=== PATIENT | male | born 1955 | race Hispanic/Latino ===

== ENCOUNTER 2017-04-22 19:48 | Emergency (ER) | payer SELFPAY ==
[2017-04-22 20:27] LABS: Basophils % (Auto) 0.8 % (0.0-1.8); Eosinophils % (Auto) 1.1 % (0.0-4.3); Hematocrit 42.6 % (35.5-45.6); Hemoglobin 14.9 gm/dl (11.8-15.2); Mean Corpuscular HGB Conc 35 % (32-34); Mean Corpuscular Hemoglobin 31 pg (28-32); Mean Corpuscular Volume 89 fl (84-94); Platelet Count 238 K/mm3 (140-440); Red Blood Count 4.77 M/mm3 (3.65-5.03); Red Cell Distribution Width 14.3 % (13.2-15.2); White Blood Count 7.4 K/mm3 (4.5-11.0)
[2017-04-22 21:02] LABS: Anion Gap 20 mmol/L; BUN/Creatinine Ratio 12.22; Blood Urea Nitrogen 11 mg/dL (9-20); Calcium 8.5 mg/dL (8.4-10.2); Carbon Dioxide 22 mmol/L (22-30); Chloride 101.7 mmol/L (98-107); Glucose 99 mg/dL (75-100); Potassium 3.8 mmol/L (3.6-5.0); Sodium 140 mmol/L (137-145)
--- NOTE | 2017-04-22 22:21 | Emergency Department Report ---
HPI - General Chief Complaint: Psych Time Seen by Provider: 04/22/17 20:03 - HPI HPI: The patient is a 61-year-old male who presents for evaluation of mental health. The patient reports constant and severe sadness and depression for the past one day, exacerbated with alcohol use. The patient reports associated suicidal ideations. He shares that he recently lost his brother causing him to be depressed. The patient denies fever, headache, unexplained weight loss or weight gain, heat or cold intolerance, skin, hair, or nail changes, neuro deficits, homicidal ideations. ED Past Medical Hx - Past Medical History Previous Medical History?: Yes Hx Hypertension: No Hx CVA: No Hx Heart Attack/AMI: No Hx Congestive Heart Failure: No Hx Diabetes: No Hx Deep Vein Thrombosis: No Hx Pulmonary Embolism: No Hx GERD: No Hx Liver Disease: No Hx Renal Disease: No Hx Sickle Cell Disease: No Hx Arthritis: No Hx Headaches / Migraines: No Hx Seizures: Yes Hx Kidney Stones: No Hx Psychiatric Treatment: Yes (states "I can't remember" to most questions) Hx Asthma: Yes Hx COPD: Yes Hx Tuberculosis: No Hx Dementia: No Hx HIV: No Additional medical history: Hep B, Bronchitis and chronic back pain - Surgical History Past Surgical History?: No Hx Coronary Stent: No Hx Open Heart Surgery: No Hx Pacemaker: No Hx Internal Defibrillator: No Hx Cholecystectomy: No Hx Appendectomy: No Hx Breast Surgery: No - Social History Smoking Status: Current Every Day Smoker - Medications Home Medications: Home Medications Medication Instructions Recorded Confirmed Last Taken Type PHENobarbital 30 mg PO Q8H 06/30/14 04/14/16 Unknown History Phenytoin [Dilantin] 100 mg PO TID 06/30/14 04/14/16 Unknown History HYDROcodone/APAP 5-325 [[place] 1 each PO Q6HR PRN #20 tablet 10/23/14 04/14/16 Unknown Rx 5-325 mg TAB] Acetaminophen/Codeine [Tylenol #3] 1 tab PO Q8H PRN #12 tablet 05/15/15 Unknown Rx Ibuprofen [Motrin 800 MG tab] 800 mg PO Q8HR PRN #21 tablet 05/15/15 04/14/16 Unknown Rx ED Review of Systems ROS: Stated complaint: MH EVAL/SUICIDAL THOUGHTS/ETOH Other details as noted in HPI Constitutional: denies: fever ENT: denies: throat or neck pain Respiratory: denies: cough, shortness of breath Cardiovascular: denies: chest pain Endocrine: denies unexplained weight loss or gain Gastrointestinal: denies: abdominal pain, nausea Genitourinary: denies: dysuria Musculoskeletal: denies: leg swelling Skin: denies: rash Neurological: denies: headache Hematological/Lymphatic: denies: easy bleeding or easy bruising Psych: reports sadness and hopelessness Physical Exam - Physical Exam Vital Signs: Vital Signs 04/22/17 20:00 Temperature 98.2 F Pulse Rate 80 Respiratory 18 Rate Blood Pressure 126/85 O2 Sat by Pulse 100 Oximetry Physical Exam: General: well-nourished, well-developed, no acute distress Head: Normocephalic, atraumatic Eyes: normal sclera ENT: Mucous membranes are pale and dry Neck: trachea midline, neck supple, No neck stiffness, no cervical adenopathy Respiratory: Breath sounds equal bilaterally, no wheezing, rales, or rhonchi Cardio: S1 and S2 present, no murmurs, rubs, gallops, capillary refill is delayed Abdomen: Normoactive bowel sounds, soft abdomen, no rigidity, no guarding or rebound tenderness Chest WALL/Back: No tenderness to palpation of the chest wall, no CVA tenderness with percussion Musc: No pitting edema Skin: No rash Neuro: no facial drooping, normal speech Psych: Flat affect, poor insight, depressed mood, positive suicidal ideation ED Course Vital Signs 04/22/17 20:00 Temperature 98.2 F Pulse Rate 80 Respiratory 18 Rate Blood Pressure 126/85 O2 Sat by Pulse 100 Oximetry ED Medical Decision Making - Lab Data Result diagrams: 04/22/17 20:18 04/22/17 20:18 - Medical Decision Making The patient was seen and examined by myself. The patient is placed on a groundwater monitoring technician and continuous pulse ox. On initial evaluation, the patient was found to be in no distress. Labs are obtained. Lab results revealed elevated EtOH level of 0.35, and positive cocaine screen, and otherwise labs are grossly unremarkable. The patient given a banana bag infusion for treatment of dehydration. The patient is medically clear. Mental health is consulted. Mental health evaluates the patient and agrees that the patient is at risk of harm to self. A 1013 is completed. The patient will be admitted to a psychiatric facility once bed placement is obtained. Critical care attestation.: If time is entered above; I have spent that time in minutes in the direct care of this critically ill patient, excluding procedure time. ED Disposition Clinical Impression: Alcohol intoxication delirium, Dehydration, Suicidal ideation Depressed Qualifiers: Depression Type: major depressive disorder Major depression recurrence: single episode Active/Remission status: currently active Major depression episode severity: severe Psychotic features: without psychotic features Qualified Code(s ): F32.2 - Major depressive disorder, single episode, severe without psychotic features Disposition: DC/TX-65 PSY HOSP/PSY UNIT Is pt being admited?: No Does the pt Need Aspirin: No Condition: Stable Referrals: PRIMARY CARE, [Primary Care Provider] - 3-5 Days Time of Disposition: 22:20
[2017-04-22 22:58] LABS: Urine Drugs of Abuse Note Disclamer
[2017-04-22 23:04] LABS: Bilirubin,Urine NEG (Negative); Blood,Urine NEG (Negative); Ketones,Urine NEG (Negative); Leukocyte Esterase,Urine NEG (Negative); Nitrite,Urine NEG (Negative); Protein,Urine <15 mg/dL mg/dL (Negative); RBC,Urine < 1.0 /HPF (0.0-6.0); Urobilinogen,Urine < 2.0 mg/dL (<2.0)
[2017-04-23] MEDS ORDERED: VITAMIN B-1 100 MG, FOLVITE 1 MG, INFUVITE 10 ML in NACL 0.9% 1000 ML 1,000 ML IV ONE (02:36)
[2017-04-23] MEDS ORDERED: HABITROL TD ONE (14:37)
--- NOTE | 2017-04-23 19:27 | Consultation ---
History of Present Illness - Reason for Consult Consult date: 04/23/17 Reason for consult: Mental Health Evaluation Requesting physician: RIK GA - Chief Complaint Chief complaint: "My brother recently" - History of Present Psychiatric Illness The patient is a 61-year-old male who presents for evaluation of mental health. Today patient is calm and cooperative during the assessment. He stated being sad since the of his brother a couple days ago. He stated that he started drinking (etoh) because he became depressed over the of his brother. He stated being sober for a couple months prior to this recent relapse. He stated that he wanted to "" once he heard the news of his brother. He stated that he would only drink every other day (beer or hard liquor) prior to him being sober for months. He is adamant that he isn't suicidal today and denies HI's and AVH's. He stated struggling with depression in the past. He rate his depression 6/10, with 10 being the worse. He stated that he once took Zoloft that worked for him. He denies recreational drug use, but is positive for cocaine. He stated, "I don't do cocaine." Patient stated that he maybe evicted from his hotel. Medications and Allergies Allergies Allergy/AdvReac Type Severity Reaction Status Date / Time Penicillins Allergy Unknown Verified 06/29/14 21:27 Home Medications Medication Instructions Recorded Confirmed Last Taken Type PHENobarbital 30 mg PO Q8H 06/30/14 04/14/16 Unknown History Phenytoin [Dilantin] 100 mg PO TID 06/30/14 04/14/16 Unknown History HYDROcodone/APAP 5-325 [[place] 1 each PO Q6HR PRN #20 tablet 10/23/14 04/14/16 Unknown Rx 5-325 mg TAB] Acetaminophen/Codeine [Tylenol #3] 1 tab PO Q8H PRN #12 tablet 05/15/15 Unknown Rx Ibuprofen [Motrin 800 MG tab] 800 mg PO Q8HR PRN #21 tablet 05/15/15 04/14/16 Unknown Rx Past psychiatric history - Past Medical History Past Medical History: COPD, other (Asthma) Past Surgical History: No surgical history - past Psychiatric treatment and history Psych: Depression psychiatric treatment history: Saw a Psychiatrist a couple years ago for depression. Hx of depression. Denies a fam psy hx. - Social History Social history: other (Homeless) Mental Status Exam - Vital signs Last Vital Signs Temp 98.1 F 04/23/17 08:44 Pulse 83 04/23/17 08:44 Resp 18 04/23/17 08:44 BP 129/92 04/23/17 08:44 Pulse Ox 100 04/23/17 08:44 - Exam Narrative exam: ROS: (+) depression MSE: Appearance: calm, cooperative Behavior: regular eye contact Speech: regular rate and tone Mood: "not to bad" sad Affect: labile Thought Process: circumstantial Thought Content: denies SI/HI's and AVH's Motor Activity: ambulatory Cognition: A/Ox 3 Insight: limited Judgment: limited Results Result Diagrams: 04/22/17 20:18 04/22/17 20:18 Abnormal lab results 04/22/17 04/22/17 Range/Units 20:18 20:18 MCHC 35 H (32-34) % Lymph % (Auto) 40.6 H (13.4-35.0) % [place] % (Auto) 8.1 H (0.0-7.3) % Plasma/Serum Alcohol 0.35 H (0-0.07) gm% All other labs normal. Assessment and Plan Assessment and plan: Impression: Historical Dx: Depression. MDD Severe Type. Alcohol Use DO. Substance Use DO (Cocaine). Today patient is calm and cooperative during the assessment. No acute alcohol withdrawals noted. Positive for cocaine. Alcohol serum 0.35. DDx: R/O Bipolar, Possible Alcohol Induced Mood DO, Possible Substance Induced Mood DO Recommendation/Plan: Evaluate 1013 in 24 hours to determine proper dispo. Start Zoloft 50 mg PO daily for depression and Ativan 1 mg PO Q6hrs for withdrawals. Once discharged recommend rehab/psy services. Discussed possible suicidality/ medication induced adithya reference Zoloft with patient. Discussed generalized coping skills with patient. Pulmonary Specialist involvement, patient may need placement.
[2017-04-23] MEDS ORDERED: ATIVAN PO PRN (19:52)
[2017-04-23] MEDS ORDERED: ZOLOFT PO SCH (20:00)
[2017-04-24 08:21] VITALS: BP 144/97
--- NOTE | 2017-04-24 15:41 | Progress Note ---
Subjective - Reason for Consult Consult date: 04/24/17 Reason for consult: follow up - Chief Complaint Chief complaint: "I'm fine now" The patient is a 61-year-old male who presented for evaluation of mental health. Today patient is calm and cooperative during the assessment. His knowledge as being sad and drank alcohol once he found that his brother . He stated being sober for a couple months prior to this recent relapse. He stated that he wanted to "" once he heard the news of his brother states that he never intended to harm himself. He has maintained denial of suicidal ideation since arrival to the hospital. He is focused on getting his belongings from the motel. He acknowledges depression and is interested in outpatient treatment and continuing Zoloft. Although he is not at imminent risk of harm to himself. He denies cravings or withdrawal symptoms from alcohol. He received Ativan one time since arrival. Mental Status Exam - Vital signs Last Vital Signs Temp 97.9 F 04/24/17 08:19 Pulse 89 04/24/17 08:19 Resp 20 04/24/17 08:19 BP 144/97 04/24/17 08:19 Pulse Ox 100 04/24/17 08:19 Assessment and Plan No signs of alcohol withdrawal observed. MSE: Appearance: calm, cooperative Behavior: regular eye contact Speech: regular rate and tone Mood: "better" Affect: anxious Thought Process: circumstantial Thought Content: denies SI/HI's and AVH's Motor Activity: ambulatory Cognition: A/Ox 3 Insight: limited Judgment: limited Assessment and plan: Impression: Historical Dx: Depression. MDD Severe Type. Alcohol Use DO. Substance Use DO (Cocaine). Today patient is calm and cooperative during the assessment. No acute alcohol withdrawals noted. Positive for cocaine. Alcohol serum 0.35 on arrival to ER. DDx: R/O Bipolar, Possible Alcohol Induced Mood DO, Possible Substance Induced Mood DO There are no acute safety concerns. He states that he voiced suicidal ideation because he was intoxicated. He denies any thoughts, plans, or intention of harming himself. He expresses a plan to get his belongings from the hotel he is staying at and find another place to stay. Recommendation/Plan: Rescind 1013 Recommend continuing Zoloft 50 mg PO daily for depression. No further treatment for detox necessary. Outpatient mental health referrals will be provided Attend AA groups, 90 in 90 days and abstain from all mood altering/illicit substances director of housing and energy services recommended to see patient for housing concerns. He will be provided a 24 hour crisis number ([facility]) if he has distressing mental health symptoms or suicidal ideation.
== END 2017-04-24 20:40 | disposition home or self-care (01) ==
LOC: EEVIPCON 19:48 → ED 19:48
DX: F10.121 Alcohol abuse with intoxication delirium (principal); E86.0 Dehydration; R45.851 Suicidal ideations; F32.2 Major depressive disorder, single episode, severe without psychotic features; J45.909 Unspecified asthma, uncomplicated; G89.29 Other chronic pain; F17.200 Nicotine dependence, unspecified, uncomplicated
CPT/HCPCS: 36415; 80048; 80307; 85025; 96365; 96366; 99285; G0480; J3411; J7030; 80320

== ENCOUNTER 2017-05-06 17:17 | Emergency (ER) | payer OTHER ==
[2017-05-06 17:47] VITALS: BP 120/71
[2017-05-06 18:22] LABS: Basophils % (Auto) 0.9 % (0.0-1.8); Eosinophils % (Auto) 1.2 % (0.0-4.3); Hematocrit 45.2 % (35.5-45.6); Hemoglobin 15.3 gm/dl (11.8-15.2); Mean Corpuscular HGB Conc 34 % (32-34); Mean Corpuscular Hemoglobin 31 pg (28-32); Mean Corpuscular Volume 90 fl (84-94); Platelet Count 251 K/mm3 (140-440); Red Cell Distribution Width 14.1 % (13.2-15.2); White Blood Count 8.4 K/mm3 (4.5-11.0)
[2017-05-06 18:37] LABS: Anion Gap 24 mmol/L; BUN/Creatinine Ratio 8.88; Blood Urea Nitrogen 8 mg/dL (9-20); Carbon Dioxide 21 mmol/L (22-30); Chloride 96.9 mmol/L (98-107); Glucose 85 mg/dL (75-100); Potassium 3.6 mmol/L (3.6-5.0); Sodium 138 mmol/L (137-145)
--- NOTE | 2017-05-27 15:16 | ED Elopement Review ---
ED Pt Elopement review - Results review Lab results: Laboratory Tests 05/06/17 05/06/17 05/06/17 18:07 18:07 18:07 WBC 8.4 RBC 5.00 Hgb 15.3 H Hct 45.2 MCV 90 MCH 31 MCHC 34 RDW 14.1 Plt Count 251 Lymph % (Auto) 40.0 H [place] % (Auto) 10.0 H Eos % (Auto) 1.2 Baso % (Auto) 0.9 Lymph # 3.4 [place] # 0.8 Eos # 0.1 Baso # 0.1 Seg Neutrophils % 47.9 Seg Neutrophils # 4.0 Sodium 138 Potassium 3.6 Chloride 96.9 L Carbon Dioxide 21 L Anion Gap 24 BUN 8 L Creatinine 0.9 Estimated GFR > 60 BUN/Creatinine Ratio 8.88 Glucose 85 Calcium 9.0 Plasma/Serum Alcohol 0.23 H - Call Back decision Pt Call Back Decision: Call pt to return to ED GERMAN (Charge nurse notified the patient's suicidal ideation and need to have patient brought back to the ED at 15:15)
== END 2017-05-07 03:10 | disposition left against medical advice (07) ==
LOC: ED 17:17
DX: R42 Dizziness and giddiness (principal); F17.200 Nicotine dependence, unspecified, uncomplicated; Z88.0 Allergy status to penicillin; Z53.21 Procedure and treatment not carried out due to patient leaving prior to being seen by health care provider
CPT/HCPCS: 36415; 80048; 85025; G0480; 80320

== ENCOUNTER 2017-05-07 10:01 | Emergency (ER) | payer OTHER ==
--- NOTE | 2017-05-07 10:19 | Emergency Department Report ---
Chief Complaint: Psych Stated Complaint: JANA EVAL Time Seen by Provider: 05/07/17 10:15 - HPI History of Present Illness: PT states he wants referral for ETOH detox and he has back pain - ROS Review of Systems: pt states his last drink was yesterday + back pain x 2 years- pt states he has been told he needs MRI but he hasn't gotten it done due to insurance - Exam Physical Exam: thin male, no acute disress no tremors no slurred speech MSE screening note: Focused history and physical exam performed. Due to findings the following was ordered: labs ED Disposition for MSE Condition: Stable
[2017-05-07 10:20] VITALS: BP 137/84
[2017-05-07 10:44] LABS: Basophils % (Auto) 1.4 % (0.0-1.8); Eosinophils % (Auto) 1.6 % (0.0-4.3); Hematocrit 49.8 % (35.5-45.6); Hemoglobin 16.7 gm/dl (11.8-15.2); Mean Corpuscular HGB Conc 34 % (32-34); Mean Corpuscular Hemoglobin 30 pg (28-32); Mean Corpuscular Volume 91 fl (84-94); Platelet Count 239 K/mm3 (140-440); Red Blood Count 5.48 M/mm3 (3.65-5.03); Red Cell Distribution Width 14.4 % (13.2-15.2); White Blood Count 6.5 K/mm3 (4.5-11.0)
[2017-05-07 11:08] LABS: Alanine Aminotransferase 28 units/L (7-56); Albumin 4.5 g/dL (3.9-5); Albumin/Globulin Ratio 1.6 %; Alkaline Phosphatase 51 units/L (35-129); Anion Gap 18 mmol/L; Blood Urea Nitrogen 12 mg/dL (9-20); Calcium 9.1 mg/dL (8.4-10.2); Carbon Dioxide 27 mmol/L (22-30); Chloride 101.2 mmol/L (98-107); Glucose 134 mg/dL (75-100); Sodium 142 mmol/L (137-145); Total Protein 7.3 g/dL (6.3-8.2)
[2017-05-07 11:15] LABS: Potassium 4.6 mmol/L (3.6-5.0)
[2017-05-07 12:09] LABS: Urine Drugs of Abuse Note Disclamer
[2017-05-07 12:25] LABS: Bilirubin,Urine NEG (Negative); Blood,Urine NEG (Negative); Ketones,Urine NEG (Negative); Leukocyte Esterase,Urine NEG (Negative); Mucus,Urine FEW /HPF; Nitrite,Urine NEG (Negative); Protein,Urine <15 mg/dL mg/dL (Negative)
--- NOTE | 2017-05-11 15:04 | ED Elopement Review ---
ED Pt Elopement review - Results review Lab results: Laboratory Tests 05/07/17 05/07/17 05/07/17 10:25 10:25 10:25 WBC 6.5 RBC 5.48 H Hgb 16.7 H Hct 49.8 H MCV 91 MCH 30 MCHC 34 RDW 14.4 Plt Count 239 Lymph % (Auto) 18.6 [place] % (Auto) 10.7 H Eos % (Auto) 1.6 Baso % (Auto) 1.4 Lymph # 1.2 [place] # 0.7 Eos # 0.1 Baso # 0.1 Seg Neutrophils % 67.7 Seg Neutrophils # 4.4 Sodium 142 Potassium 4.6 D Chloride 101.2 Carbon Dioxide 27 Anion Gap 18 BUN 12 Creatinine 0.8 Estimated GFR > 60 BUN/Creatinine Ratio 15.00 Glucose 134 H Calcium 9.1 Total Bilirubin 0.70 AST 32 ALT 28 Alkaline Phosphatase 51 Total Protein 7.3 Albumin 4.5 Albumin/Globulin Ratio 1.6 Urine Color Urine Turbidity Urine pH Ur Specific [place] Urine Protein Urine Glucose (UA) Urine Ketones Urine Blood Urine Nitrite Urine Bilirubin Urine Urobilinogen Ur Leukocyte Esterase Urine WBC (Auto) Urine RBC (Auto) U Epithel Cells (Auto) Hyaline Casts Urine Mucus Urine Opiates Screen Urine Methadone Screen Acetaminophen < 15.0 Ur Barbiturates Screen Ur Phencyclidine Scrn Ur Amphetamines Screen U Benzodiazepines Scrn Urine Cocaine Screen U Marijuana (THC) Screen Drugs of Abuse Note Plasma/Serum Alcohol 05/07/17 05/07/17 05/07/17 10:25 11:17 11:17 WBC RBC Hgb Hct MCV MCH MCHC RDW Plt Count Lymph % (Auto) [place] % (Auto) Eos % (Auto) Baso % (Auto) Lymph # [place] # Eos # Baso # Seg Neutrophils % Seg Neutrophils # Sodium Potassium Chloride Carbon Dioxide Anion Gap BUN Creatinine Estimated GFR BUN/Creatinine Ratio Glucose Calcium Total Bilirubin AST ALT Alkaline Phosphatase Total Protein Albumin Albumin/Globulin Ratio Urine Color Yellow Urine Turbidity Clear Urine pH 5.0 Ur Specific [place] 1.020 Urine Protein <15 mg/dl Urine Glucose (UA) Neg Urine Ketones Neg Urine Blood Neg Urine Nitrite Neg Urine Bilirubin Neg Urine Urobilinogen 2.0 Ur Leukocyte Esterase Neg Urine WBC (Auto) 3.0 Urine RBC (Auto) 1.0 U Epithel Cells (Auto) 1.0 Hyaline Casts 1 Urine Mucus Few Urine Opiates Screen Presumptive negative Urine Methadone Screen Presumptive negative Acetaminophen Ur Barbiturates Screen Presumptive negative Ur Phencyclidine Scrn Presumptive negative Ur Amphetamines Screen Presumptive negative U Benzodiazepines Scrn Presumptive negative Urine Cocaine Screen Presumptive positive U Marijuana (THC) Screen Presumptive negative Drugs of Abuse Note Disclamer Plasma/Serum Alcohol < 0.01 - Call Back decision Pt Call Back Decision: No action required
== END 2017-05-07 23:00 | disposition left against medical advice (07) ==
LOC: ED 10:01
DX: F10.10 Alcohol abuse, uncomplicated (principal); M54.9 Dorsalgia, unspecified; Z53.21 Procedure and treatment not carried out due to patient leaving prior to being seen by health care provider
CPT/HCPCS: 36415; 80053; 80307; 81001; 85025; G0480; 80320

== ENCOUNTER 2017-05-14 14:11 | Emergency (ER) | payer SELFPAY | END 2017-05-14 14:41 | disposition left against medical advice (07) | LOC: ED 14:11 | DX: R06.00 Dyspnea, unspecified (principal); J45.909 Unspecified asthma, uncomplicated; F17.200 Nicotine dependence, unspecified, uncomplicated; Z88.0 Allergy status to penicillin; Z53.21 Procedure and treatment not carried out due to patient leaving prior to being seen by health care provider ==

== ENCOUNTER 2017-05-15 13:52 | Emergency (ER) | payer SELFPAY ==
[2017-05-15 14:43] LABS: Basophils % (Auto) 1.2 % (0.0-1.8); Eosinophils % (Auto) 1.3 % (0.0-4.3); Hematocrit 41.2 % (35.5-45.6); Hemoglobin 14.3 gm/dl (11.8-15.2); Mean Corpuscular HGB Conc 35 % (32-34); Mean Corpuscular Hemoglobin 31 pg (28-32); Mean Corpuscular Volume 90 fl (84-94); Platelet Count 224 K/mm3 (140-440); Red Blood Count 4.56 M/mm3 (3.65-5.03); Red Cell Distribution Width 13.8 % (13.2-15.2); White Blood Count 8.5 K/mm3 (4.5-11.0)
[2017-05-15 15:02] LABS: Anion Gap 18 mmol/L; BUN/Creatinine Ratio 8.57; Blood Urea Nitrogen 6 mg/dL (9-20); Calcium 8.1 mg/dL (8.4-10.2); Carbon Dioxide 23 mmol/L (22-30); Chloride 102.5 mmol/L (98-107); Glucose 85 mg/dL (75-100); Potassium 3.9 mmol/L (3.6-5.0); Sodium 140 mmol/L (137-145)
[2017-05-15] MEDS ORDERED: TYLENOL ONE (19:46)
[2017-05-15] MEDS ORDERED: TYLENOL PO ONE (19:48)
--- NOTE | 2017-05-15 20:50 | Emergency Department Report ---
ED Chest Pain HPI - General Chief Complaint: Chest Pain Stated Complaint: CHEST PAIN Time Seen by Provider: 05/15/17 20:36 Source: patient Mode of arrival: Stretcher Limitations: No Limitations - History of Present Illness MD Complaint: chest pain -: Gradual Onset: during rest Pain Location: substernal, left chest Pain Radiation: none Severity: mild Severity scale (0 -10): 3 Quality: tightness, aching, dull Consistency: constant Improves With: nothing Worsens With: nothing re: nausea. denies: vomting, diaphoresis, dyspnea, sense of impending doom Other Symptoms: denies: cough, fever, rash, acid taste in mouth Treatments Prior to Arrival: none Aspirin use within the Past 7 Days: (0) No - Related Data Home Medications Medication Instructions Recorded Confirmed Last Taken PHENobarbital 30 mg PO Q8H 06/30/14 04/14/16 Unknown Phenytoin [Dilantin] 100 mg PO TID 06/30/14 04/14/16 Unknown Previous Rx's Medication Instructions Recorded Last Taken Type HYDROcodone/APAP 5-325 [[place] 1 each PO Q6HR PRN #20 tablet 10/23/14 Unknown Rx 5-325 mg TAB] Acetaminophen/Codeine [Tylenol #3] 1 tab PO Q8H PRN #12 tablet 05/15/15 Unknown Rx Ibuprofen [Motrin 800 MG tab] 800 mg PO Q8HR PRN #21 tablet 05/15/15 Unknown Rx Allergies Allergy/AdvReac Type Severity Reaction Status Date / Time Penicillins Allergy Unknown Verified 06/29/14 21:27 Heart Score - HEART Score History: Moderately suspicious EKG: Non-specific Age: 45-65 Risk factors: 1-2 risk factors Troponin: < normal limit HEART Score: 4 - Critical Actions Critical Actions: 0-3 pts:0.9-1.7%risk of adverse cardiac event.Candidate for discharge ED Review of Systems ROS: Stated complaint: CHEST PAIN Other details as noted in HPI Comment: All other systems reviewed and negative ED Past Medical Hx - Past Medical History Hx Hypertension: No Hx CVA: No Hx Heart Attack/AMI: No Hx Congestive Heart Failure: No Hx Diabetes: No Hx Deep Vein Thrombosis: No Hx Pulmonary Embolism: No Hx GERD: No Hx Liver Disease: No Hx Renal Disease: No Hx Sickle Cell Disease: No Hx Arthritis: No Hx Headaches / Migraines: No Hx Seizures: Yes Hx Kidney Stones: No Hx Psychiatric Treatment: Yes (states "I can't remember" to most questions) Hx Asthma: Yes Hx COPD: Yes Hx Tuberculosis: No Hx Dementia: No Hx HIV: No Additional medical history: Hep B, Bronchitis and chronic back pain - Surgical History Hx Coronary Stent: No Hx Open Heart Surgery: No Hx Pacemaker: No Hx Internal Defibrillator: No Hx Cholecystectomy: No Hx Appendectomy: No Hx Breast Surgery: No - Social History Smoking Status: Current Every Day Smoker Substance Use Type: Alcohol - Medications Home Medications: Home Medications Medication Instructions Recorded Confirmed Last Taken Type PHENobarbital 30 mg PO Q8H 06/30/14 04/14/16 Unknown History Phenytoin [Dilantin] 100 mg PO TID 06/30/14 04/14/16 Unknown History HYDROcodone/APAP 5-325 [[place] 1 each PO Q6HR PRN #20 tablet 10/23/14 04/14/16 Unknown Rx 5-325 mg TAB] Acetaminophen/Codeine [Tylenol #3] 1 tab PO Q8H PRN #12 tablet 05/15/15 Unknown Rx Ibuprofen [Motrin 800 MG tab] 800 mg PO Q8HR PRN #21 tablet 05/15/15 04/14/16 Unknown Rx ED Physical Exam - General Limitations: No Limitations General appearance: alert, in no apparent distress - Head Head exam: Present: atraumatic, normocephalic - Eye Eye exam: Present: normal appearance - ENT ENT exam: Present: mucous membranes moist - Neck Neck exam: Present: normal inspection - Respiratory Respiratory exam: Present: normal lung sounds bilaterally. Absent: respiratory distress - Cardiovascular Cardiovascular Exam: Present: regular rate, normal rhythm. Absent: systolic murmur, diastolic murmur, rubs, gallop - GI/Abdominal GI/Abdominal exam: Present: soft, normal bowel sounds - Rectal Rectal exam: Present: deferred - Extremities Exam Extremities exam: Present: normal inspection - Back Exam Back exam: Present: normal inspection - Neurological Exam Neurological exam: Present: alert, oriented X3 - Psychiatric Psychiatric exam: Present: normal affect, normal mood - Skin Skin exam: Present: warm, dry, intact, normal color. Absent: rash ED Course Vital Signs 05/15/17 05/15/17 14:05 20:11 Temperature 97.4 F L 98 F Pulse Rate 72 77 Respiratory 20 18 Rate Blood Pressure 135/84 O2 Sat by Pulse 99 100 Oximetry ELIA score - Elia Score Age > 65: (0) No Aspirin use within the Past 7 Days: (0) No 3 or more CAD Risk Factors: (0) No 2 or more Angina events in past 24 hrs: (0) No Known CAD with more than 50% Stenosis: (0) No Elevated Cardiac Markers: (0) No ST Deviation Greater than 0.5mm: (0) No ELIA Score: 0 ED Medical Decision Making - Lab Data Result diagrams: 05/15/17 14:31 05/15/17 14:31 - EKG Data When compared to previous EKG there are: no significant change Interpretation: no acute changes - Radiology Data Radiology results: report reviewed, image reviewed - Medical Decision Making patient doing well, saw him yesterday and doesnt have a place to sleep tonight , he is pain free at this time, will dc in the am. Critical care attestation.: If time is entered above; I have spent that time in minutes in the direct care of this critically ill patient, excluding procedure time. ED Disposition Clinical Impression: Chest pain Disposition: DC-01 TO HOME OR SELFCARE Is pt being admited?: No Does the pt Need Aspirin: No Condition: Stable Instructions: Chest Pain (ED) Referrals: PRIMARY CARE, [Primary Care Provider] - 3-5 Days
[2017-05-16 05:15] VITALS: BP 129/88
--- NOTE | 2017-05-16 07:40 | XRay Report ---
ROUTINE CHEST, TWO VIEWS: HISTORY: Shortness of breath, chest pain. The lungs are hyperinflated. Moderate emphysematous changes are suspected. No evidence for infiltrate, pleural effusion or pneumothorax. Heart and mediastinal structures are within normal limits. IMPRESSION: Emphysematous changes. No acute process.
== END 2017-05-16 05:14 | disposition home or self-care (01) ==
LOC: ED 13:52
DX: R07.9 Chest pain, unspecified (principal); J45.909 Unspecified asthma, uncomplicated; F17.200 Nicotine dependence, unspecified, uncomplicated
CPT/HCPCS: 36415; 71020; 80048; 82140; 82805; 84484; 85025; 93005; 93010

== ENCOUNTER 2017-06-20 21:04 | Emergency (ER) | payer SELFPAY ==
[2017-06-20 21:32] VITALS: BP 118/83
[2017-06-20 21:56] LABS: Basophils % (Auto) 1.1 % (0.0-1.8); Eosinophils % (Auto) 0.5 % (0.0-4.3); Hematocrit 42.4 % (35.5-45.6); Hemoglobin 14.8 gm/dl (11.8-15.2); Mean Corpuscular HGB Conc 35 % (32-34); Mean Corpuscular Hemoglobin 31 pg (28-32); Mean Corpuscular Volume 90 fl (84-94); Platelet Count 238 K/mm3 (140-440); Red Blood Count 4.73 M/mm3 (3.65-5.03); Red Cell Distribution Width 13.6 % (13.2-15.2); White Blood Count 11.6 K/mm3 (4.5-11.0)
[2017-06-20 22:07] LABS: INR 0.96 (0.87-1.13)
[2017-06-20 22:08] LABS: Partial Thromboplastin Time 32.1 Sec. (24.2-36.6)
[2017-06-20 22:09] LABS: Anion Gap 20 mmol/L; Blood Urea Nitrogen 18 mg/dL (9-20); Carbon Dioxide 24 mmol/L (22-30); Chloride 90.7 mmol/L (98-107); Glucose 85 mg/dL (75-100); Potassium 3.6 mmol/L (3.6-5.0); Sodium 131 mmol/L (137-145)
--- NOTE | 2017-06-21 08:34 | XRay Report ---
XRAY CHEST TWO VIEWS: 06/20/17 21:04:00 CLINICAL: Cough and chest pain. COMPARISON: 05/15/17 FINDINGS: Normal heart and pulmonary vasculature. The lungs are hyperexpanded and hyperlucent. No airspace disease or pleural effusion.Mid wedge compression fractures of T9 and T10 with decreased height and greater thoracic kyphosis compared to the prior exam. Moderate anterior spondylosis.. IMPRESSION: COPD and no acute cardiopulmonary process.Mid wedge compression fractures of T9-T10 may be subacute.
== END 2017-06-21 06:35 | disposition left against medical advice (07) ==
LOC: ED 21:04
DX: R07.9 Chest pain, unspecified (principal); Z53.21 Procedure and treatment not carried out due to patient leaving prior to being seen by health care provider
CPT/HCPCS: 36415; 71020; 80048; 84484; 85025; 85610; 85730; 93005; 93010

== ENCOUNTER 2017-09-17 14:06 | Emergency (ER) | payer SELFPAY ==
[2017-09-17 15:12] LABS: Basophils # (Auto) 0.1 K/mm3 (0.0-0.1); Basophils % (Auto) 1.1 % (0.0-1.8); Eosinophils # (Auto) 0.1 K/mm3 (0.0-0.4); Eosinophils % (Auto) 0.9 % (0.0-4.3); Hematocrit 45.3 % (35.5-45.6); Hemoglobin 15.1 gm/dl (11.8-15.2); Lymphocytes # (Auto) 2.5 K/mm3 (1.2-5.4); Lymphocytes % (Auto) 25.6 % (13.4-35.0); Mean Corpuscular HGB Conc 33 % (32-34); Mean Corpuscular Hemoglobin 31 pg (28-32); Mean Corpuscular Volume 92 fl (84-94); Monocytes # (Auto) 0.7 K/mm3 (0.0-0.8); Monocytes % (Auto) 7.2 % (0.0-7.3); Platelet Count 314 K/mm3 (140-440); Red Blood Count 4.95 M/mm3 (3.65-5.03); Red Cell Distribution Width 13.8 % (13.2-15.2)
--- NOTE | 2017-09-17 15:24 | Emergency Department Report ---
ED Psych HPI - General Chief Complaint: Psych Stated Complaint: HURT HIMSELF Time Seen by Provider: 09/17/17 14:56 Source: patient Mode of arrival: Ambulatory - History of Present Illness Initial Comments: Patient presents [facility] complaining of "wanting to take a bullet" depressed but no med c/o, no fever, no stiff neck no arechiga, no cp recently got kicked out ofbrother's house drinking all day here states that he tired of living and wants to , no other c/o except chronic low back , no acute injury - Related Data Home Medications Medication Instructions Recorded Confirmed Last Taken PHENobarbital 30 mg PO Q8H 06/30/14 04/14/16 Unknown Phenytoin [Dilantin] 100 mg PO TID 06/30/14 04/14/16 Unknown Previous Rx's Medication Instructions Recorded Last Taken Type HYDROcodone/APAP 5-325 [[place] 1 each PO Q6HR PRN #20 tablet 10/23/14 Unknown Rx 5-325 mg TAB] Acetaminophen/Codeine [Tylenol #3] 1 tab PO Q8H PRN #12 tablet 05/15/15 Unknown Rx Ibuprofen [Motrin 800 MG tab] 800 mg PO Q8HR PRN #21 tablet 05/15/15 Unknown Rx Allergies Allergy/AdvReac Type Severity Reaction Status Date / Time Penicillins Allergy Unknown Verified 09/17/17 14:15 ED Review of Systems ROS: Stated complaint: HURT HIMSELF Other details as noted in HPI Comment: All other systems reviewed and negative Constitutional: denies: diaphoresis, fever, malaise, weakness ENT: denies: hearing loss Respiratory: denies: shortness of breath, SOB with exertion, SOB at rest, stridor, wheezing Cardiovascular: denies: chest pain, palpitations, dyspnea on exertion, edema, syncope, paroxysmal nocturnal dyspnea Endocrine: denies: excessive sweating, flushing Gastrointestinal: denies: abdominal pain, nausea, vomiting, hematemesis, melena , hematochezia Genitourinary: denies: urgency, dysuria, testicular pain, testicular mass Musculoskeletal: denies: arthralgia, myalgia Neurological: denies: headache, weakness, numbness, paresthesias, confusion, abnormal gait, vertigo Psychiatric: depression, suicidal thoughts ED Past Medical Hx - Past Medical History Hx Hypertension: No Hx CVA: No Hx Heart Attack/AMI: No Hx Congestive Heart Failure: No Hx Diabetes: No Hx Deep Vein Thrombosis: No Hx Pulmonary Embolism: No Hx GERD: No Hx Liver Disease: No Hx Renal Disease: No Hx Sickle Cell Disease: No Hx Arthritis: No Hx Headaches / Migraines: No Hx Seizures: Yes Hx Kidney Stones: No Hx Psychiatric Treatment: Yes (states "I can't remember" to most questions) Hx Asthma: Yes Hx COPD: Yes Hx Tuberculosis: No Hx Dementia: No Hx HIV: No Additional medical history: Hep B, Bronchitis and chronic back pain - Surgical History Past Surgical History?: No Hx Coronary Stent: No Hx Open Heart Surgery: No Hx Pacemaker: No Hx Internal Defibrillator: No Hx Cholecystectomy: No Hx Appendectomy: No Hx Breast Surgery: No - Social History Smoking Status: Current Every Day Smoker Substance Use Type: Alcohol - Medications Home Medications: Home Medications Medication Instructions Recorded Confirmed Last Taken Type PHENobarbital 30 mg PO Q8H 06/30/14 04/14/16 Unknown History Phenytoin [Dilantin] 100 mg PO TID 06/30/14 04/14/16 Unknown History HYDROcodone/APAP 5-325 [[place] 1 each PO Q6HR PRN #20 tablet 10/23/14 04/14/16 Unknown Rx 5-325 mg TAB] Acetaminophen/Codeine [Tylenol #3] 1 tab PO Q8H PRN #12 tablet 05/15/15 Unknown Rx Ibuprofen [Motrin 800 MG tab] 800 mg PO Q8HR PRN #21 tablet 05/15/15 04/14/16 Unknown Rx ED Physical Exam - General Limitations: No Limitations General appearance: alert, appears intoxicated - Head Head exam: Present: atraumatic, normocephalic - Eye Eye exam: Present: normal appearance, PERRL, EOMI - ENT ENT exam: Present: normal exam, normal orophraynx, mucous membranes moist - Neck Neck exam: Present: normal inspection. Absent: tenderness, meningismus - Respiratory Respiratory exam: Present: normal lung sounds bilaterally. Absent: respiratory distress, wheezes, rales, rhonchi, stridor, chest wall tenderness, accessory muscle use, decreased breath sounds, prolonged expiratory - Cardiovascular Cardiovascular Exam: Present: regular rate, normal rhythm. Absent: systolic murmur, diastolic murmur, rubs, gallop - GI/Abdominal GI/Abdominal exam: Present: soft. Absent: distended, tenderness, guarding, rebound, hyperactive bowel sounds, mass, bruit, pulsatile mass - Extremities Exam Extremities exam: Present: normal inspection, full ROM. Absent: tenderness, normal capillary refill, pedal edema, joint swelling, calf tenderness - Back Exam Back exam: Present: normal inspection. Absent: CVA tenderness (L), muscle spasm , paraspinal tenderness, vertebral tenderness - Neurological Exam Neurological exam: Present: alert, oriented X3, CN II-XII intact. Absent: motor sensory deficit - Psychiatric Psychiatric exam: Present: depressed, agitated, anxious, suicidal ideation - Skin Skin exam: Absent: cyanosis, diaphoretic, erythema, urticaria, vesicles, petechiae, pallor, abrasion, ecchymosis ED Course Vital Signs 09/17/17 14:15 Pulse Rate 91 H Respiratory 18 Rate Blood Pressure 125/77 O2 Sat by Pulse 96 Oximetry - Reevaluation(s) Reevaluation #1: 09/17/17 16:57 Patient was placed in room 11 medical clearance labs and EKG were ordered patient was given Haldol when he got combative and became a danger to himself and others he became verbally abusive to staff and security, he was therefore given Haldol ED Medical Decision Making - Lab Data Result diagrams: 09/17/17 14:54 09/17/17 14:54 - Medical Decision Making Patient does have evidence of alcohol intoxication the remainder of the lab clearance was unremarkable patient is suicidal stating that he wants to shoot himself he was therefore placed on 1013 he will need further evaluation by psychiatry he is medically cleared for psychiatric evaluation he was complaining of chronic low back pain but the back exam is within normal limits. No tenderness strength was equal in the legs toes were downgoing normal reflexes normal bladder distention or retention this does appear to be chronic with therefore did not get x-rays urinalysis was unremarkable patient will need further evaluation by psychiatry Critical care attestation.: If time is entered above; I have spent that time in minutes in the direct care of this critically ill patient, excluding procedure time. ED Disposition Clinical Impression: Suicidal ideation, Alcohol intoxication Disposition: DC/TX-65 PSY HOSP/PSY UNIT Is pt being admited?: Yes Condition: Stable Referrals: KAEL ORTIZ MD [Primary Care Provider] - 3-5 Days Time of Disposition: 17:01
[2017-09-17 15:25] LABS: BUN/Creatinine Ratio 11; Blood Urea Nitrogen 9 mg/dL (9-20); Calcium 8.7 mg/dL (8.4-10.2); Hemolysis Index 22
[2017-09-17] MEDS ORDERED: HALDOL IM ONE (16:33)
[2017-09-17 16:55] LABS: Bilirubin,Urine NEG (Negative); Blood,Urine NEG (Negative); Color,Urine Straw (Yellow); Nitrite,Urine NEG (Negative); Protein,Urine <15 mg/dL mg/dL (Negative); Urobilinogen,Urine < 2.0 mg/dL (<2.0); WBC,Urine < 1.0 /HPF (0.0-6.0)
[2017-09-17 17:19] LABS: Amphetamine Screen,Urine PRESUMPTIVE NEGATIVE; Benzodiazepines Screen,Urine PRESUMPTIVE NEGATIVE; Cannabinoid Screen,Urine PRESUMPTIVE NEGATIVE; Methadone Screen,Urine PRESUMPTIVE NEGATIVE; Opiate Screen,Urine PRESUMPTIVE NEGATIVE
[2017-09-17 17:33] LABS: Cocaine Screen,Urine PRESUMPTIVE POSITIVE
[2017-09-19] MEDS ORDERED: HABITROL TD ONE (19:54)
[2017-09-19] MEDS ORDERED: TYLENOL PO ONE (19:56)
[2017-09-20] MEDS ORDERED: TYLENOL PO ONE (02:50)
[2017-09-20] MEDS ORDERED: TYLENOL ONE ×2 (02:54→23:02)
[2017-09-20 04:35] LABS: Bilirubin,Urine NEG (Negative); Blood,Urine NEG (Negative); Color,Urine Yellow (Yellow); Nitrite,Urine NEG (Negative); Protein,Urine <15 mg/dL mg/dL (Negative); Urobilinogen,Urine < 2.0 mg/dL (<2.0); WBC,Urine < 1.0 /HPF (0.0-6.0)
[2017-09-20] MEDS ORDERED: TYLENOL PO PRN (23:02)
[2017-09-21 13:49] VITALS: BP 131/74
--- NOTE | 2017-09-21 15:18 | Consultation ---
History of Present Illness - Reason for Consult Consult date: 09/21/17 Reason for consult: psychiatric evaluation - Chief Complaint Chief complaint: "I'm good now." - History of Present Psychiatric Illness The patient is a 61-year-old male who presented by police to the ER. He was intoxicated, with an ETOH level of 0.27. He has presented to the ER multiple times for similar reasons. He denies using cocaine this time. He made statements to the police that he should . He does not recall saying this. This was 09/17/2017. Today patient is calm and cooperative during the assessment. He denies suicidal ideation or homicidal ideation. The nurse reports no behavioral disturbances or safety concerns. No withdrawal symptoms present. He acknowledges depression and is interested in outpatient treatment. He also reports flashbacks of past traumatic experiences. He was taking zoloft recently but is not now. He is focused on leaving the hospital. He states he knows how to find a place to stay if his brother will not have him come back. Medications and Allergies Allergies Allergy/AdvReac Type Severity Reaction Status Date / Time Penicillins Allergy Unknown Verified 09/17/17 14:15 Home Medications Medication Instructions Recorded Confirmed Last Taken Type PHENobarbital 30 mg PO Q8H 06/30/14 09/17/17 Unknown History Phenytoin [Dilantin] 100 mg PO TID 06/30/14 09/17/17 Unknown History HYDROcodone/APAP 5-325 [[place] 1 each PO Q6HR PRN #20 tablet 10/23/14 09/17/17 Unknown Rx 5-325 mg TAB] Acetaminophen/Codeine [Tylenol #3] 1 tab PO Q8H PRN #12 tablet 05/15/15 Unknown Rx Ibuprofen [Motrin 800 MG tab] 800 mg PO Q8HR PRN #21 tablet 05/15/15 09/17/17 Unknown Rx Active Meds: Active Medications Acetaminophen (Tylenol) 325 mg PO Q6H PRN PRN Reason: Pain Last Admin: 09/20/17 23:07 Dose: 325 mg Past psychiatric history - Past Medical History Past Medical History: COPD, seizures (alcohol withdrawal) - past Psychiatric treatment and history Psych: Anxiety, Addictions, Depression - Social History Social history: other (homeless) Mental Status Exam - Vital signs Last Vital Signs Temp 98.4 F 09/21/17 10:00 Pulse 80 09/21/17 10:00 Resp 18 09/21/17 13:49 BP 131/74 09/21/17 10:00 Pulse Ox 98 09/21/17 13:49 - Exam Narrative exam: No signs of alcohol withdrawal observed. MSE: Appearance: calm, cooperative Behavior: regular eye contact Speech: regular rate and tone Mood: "good" Affect: anxious Thought Process: logical and linear Thought Content: denies SI/HI's and AVH's Motor Activity: ambulatory Cognition: A/Ox 3 Insight: fair Judgment: limited Results Result Diagrams: 09/17/17 14:54 09/17/17 14:54 All other labs normal. Assessment and Plan Assessment and plan: Impression: Historical Dx: MDD. Alcohol Use DO. Substance Use DO (Cocaine)- episodic. Add PTSD. Today patient is calm and cooperative during the assessment. No alcohol withdrawals noted. Alcohol serum 0.27 on arrival to ER on 09/17/2017. He is not at imminent risk of harm to himself. His presentation was due to etoh intoxication. There are no acute safety concerns. He denies any thoughts, plans, or intention of harming himself. He expresses a plan to stay with a friend or go to a homeless long-term. He described options for long-term and how he would obtain it. Recommendation/Plan: Rescind 1013 Outpatient mental health referrals provided-[facility]. Attend AA groups, 90 in 90 days and abstain from all mood altering/illicit substances He will be provided a 24 hour crisis number (GCAL) if he has distressing mental health symptoms or suicidal ideation. He was given information for [facility] as well.
--- NOTE | 2017-09-21 16:12 | Emergency Department Report ---
Blank Doc - Documentation Documentation: I was asked to evaluate this patient for possible discharge. Patient denying any suicidal or homicidal ideation. No visual or auditory hallucination. Patient admitted to plan to follow up with an outpatient.
== END 2017-09-21 18:00 ==
LOC: EEVIPCON 14:06 → ED 14:06
DX: F10.129 Alcohol abuse with intoxication, unspecified (principal); R45.851 Suicidal ideations; Z88.0 Allergy status to penicillin; R53.1 Weakness; J45.909 Unspecified asthma, uncomplicated; J44.9 Chronic obstructive pulmonary disease, unspecified; F17.200 Nicotine dependence, unspecified, uncomplicated
CPT/HCPCS: 36415; 80048; 80307; 81001; 85025; 93005; 93010; 96372; 99284; G0480; J1630; 80320; 87086

== ENCOUNTER 2017-09-21 23:56 | Emergency (ER) | payer SELFPAY | END 2017-09-22 00:30 | disposition left against medical advice (07) | LOC: ED 23:56 | DX: Z00.8 Encounter for other general examination (principal); Z53.21 Procedure and treatment not carried out due to patient leaving prior to being seen by health care provider ==

== ENCOUNTER 2017-09-22 19:25 | Emergency (ER) | payer OTHER ==
--- NOTE | 2017-09-22 20:46 | Emergency Department Report ---
ED Altered Mental Status HPI - General Chief Complaint: Altered Mental Status Stated Complaint: DRUNK Time Seen by Provider: 09/22/17 20:23 Source: EMS Mode of arrival: Stretcher Limitations: No Limitations - History of Present Illness Initial Comments: 61 YO MALE HOMELESS PERSON F[facility]. PT IS DRUNK AND VERBALIZING THAT HE IS DYING FROM LIVER CANCER AND COPD. HE HAS BEEN COMBATIVE TOWARDS THE STAFF AND NOT ANSWERING QUESTIONS DURING TRIAGE. MD Complaint: altered mental status -: unknown Severity: severe Context: alcohol abuse Associated Symptoms: denies other symptoms - Related Data Home Medications Medication Instructions Recorded Confirmed Last Taken PHENobarbital 30 mg PO Q8H 06/30/14 09/17/17 Unknown Phenytoin [Dilantin] 100 mg PO TID 06/30/14 09/17/17 Unknown Previous Rx's Medication Instructions Recorded Last Taken Type HYDROcodone/APAP 5-325 [[place] 1 each PO Q6HR PRN #20 tablet 10/23/14 Unknown Rx 5-325 mg TAB] Acetaminophen/Codeine [Tylenol #3] 1 tab PO Q8H PRN #12 tablet 05/15/15 Unknown Rx Ibuprofen [Motrin 800 MG tab] 800 mg PO Q8HR PRN #21 tablet 05/15/15 Unknown Rx Allergies Allergy/AdvReac Type Severity Reaction Status Date / Time Penicillins Allergy Unknown Verified 09/17/17 14:15 ED Review of Systems ROS: Stated complaint: DRUNK Other details as noted in HPI Constitutional: denies: chills, fever Eyes: denies: eye pain, eye discharge, vision change ENT: denies: ear pain, throat pain Respiratory: denies: cough, shortness of breath, wheezing Cardiovascular: denies: chest pain, palpitations Endocrine: no symptoms reported Gastrointestinal: denies: abdominal pain, nausea, diarrhea Genitourinary: denies: urgency, dysuria Musculoskeletal: denies: back pain, joint swelling, arthralgia Skin: denies: rash, lesions Neurological: denies: headache, weakness, paresthesias Psychiatric: denies: anxiety, depression Hematological/Lymphatic: denies: easy bleeding, easy bruising ED Past Medical Hx - Past Medical History Previous Medical History?: Yes Hx Hypertension: No Hx CVA: No Hx Heart Attack/AMI: No Hx Congestive Heart Failure: No Hx Diabetes: No Hx Deep Vein Thrombosis: No Hx Pulmonary Embolism: No Hx GERD: No Hx Liver Disease: No Hx Renal Disease: No Hx of Cancer: Yes (LIVER CANCER) Hx Sickle Cell Disease: No Hx Arthritis: No Hx Headaches / Migraines: No Hx Seizures: Yes Hx Kidney Stones: No Hx Psychiatric Treatment: Yes (states "I can't remember" to most questions) Hx Asthma: Yes Hx COPD: Yes Hx Tuberculosis: No Hx Dementia: No Hx HIV: No Additional medical history: Hep B, Bronchitis and chronic back pain - Surgical History Past Surgical History?: No Hx Coronary Stent: No Hx Open Heart Surgery: No Hx Pacemaker: No Hx Internal Defibrillator: No Hx Cholecystectomy: No Hx Appendectomy: No Hx Breast Surgery: No - Social History Smoking Status: Current Every Day Smoker Substance Use Type: Alcohol - Medications Home Medications: Home Medications Medication Instructions Recorded Confirmed Last Taken Type PHENobarbital 30 mg PO Q8H 06/30/14 09/17/17 Unknown History Phenytoin [Dilantin] 100 mg PO TID 06/30/14 09/17/17 Unknown History HYDROcodone/APAP 5-325 [[place] 1 each PO Q6HR PRN #20 tablet 10/23/14 09/17/17 Unknown Rx 5-325 mg TAB] Acetaminophen/Codeine [Tylenol #3] 1 tab PO Q8H PRN #12 tablet 05/15/15 Unknown Rx Ibuprofen [Motrin 800 MG tab] 800 mg PO Q8HR PRN #21 tablet 05/15/15 09/17/17 Unknown Rx ED Physical Exam - General Limitations: No Limitations General appearance: alert, in distress (IN EMOTIONAL DISTRESS CRYING ABOUT DYING ) - Head Head exam: Present: atraumatic, normocephalic - Eye Eye exam: Present: normal appearance, EOMI - ENT ENT exam: Present: mucous membranes moist, other (MISSING TEETH) - Neck Neck exam: Present: normal inspection, full ROM - Respiratory Respiratory exam: Present: normal lung sounds bilaterally. Absent: respiratory distress, wheezes, rales - Cardiovascular Cardiovascular Exam: Present: regular rate, normal rhythm. Absent: systolic murmur, diastolic murmur, rubs, gallop - GI/Abdominal GI/Abdominal exam: Present: soft, normal bowel sounds - Rectal Rectal exam: Present: deferred - Extremities Exam Extremities exam: Present: normal inspection, full ROM - Back Exam Back exam: Present: normal inspection, full ROM, other (KYPHOSIS) - Neurological Exam Neurological exam: Present: alert, oriented X3, CN II-XII intact - Psychiatric Psychiatric exam: Present: normal affect, normal mood - Skin Skin exam: Present: warm, dry, intact, normal color. Absent: rash ED Course Vital Signs 09/22/17 09/22/17 09/22/17 20:15 20:30 21:01 Temperature 97.6 F Pulse Rate 74 73 74 Respiratory 15 17 14 Rate Blood Pressure 106/75 108/78 108/71 Blood Pressure 106/75 [Right] O2 Sat by Pulse 97 Oximetry 09/23/17 02:00 Temperature 97.7 F Pulse Rate 72 Respiratory 18 Rate Blood Pressure Blood Pressure 105/60 [Right] O2 Sat by Pulse 98 Oximetry - Lab Data Result diagrams: 09/22/17 23:10 09/22/17 23:10 Lab Results 09/22/17 09/22/17 09/22/17 Range/Units 22:20 22:20 23:10 WBC 8.8 (4.5-11.0) K/mm3 RBC 4.92 (3.65-5.03) M/mm3 Hgb 15.0 (11.8-15.2) gm/dl Hct 44.3 (35.5-45.6) % MCV 90 (84-94) fl MCH 31 (28-32) pg MCHC 34 (32-34) % RDW 13.7 (13.2-15.2) % Plt Count 285 (140-440) K/mm3 Lymph % (Auto) 25.0 (13.4-35.0) % [place] % (Auto) 5.7 (0.0-7.3) % Eos % (Auto) 0.9 (0.0-4.3) % Baso % (Auto) 2.7 H (0.0-1.8) % Lymph # 2.2 (1.2-5.4) K/mm3 [place] # 0.5 (0.0-0.8) K/mm3 Eos # 0.1 (0.0-0.4) K/mm3 Baso # 0.2 H (0.0-0.1) K/mm3 Seg Neutrophils % 65.7 (40.0-70.0) % Seg Neutrophils # 5.8 (1.8-7.7) K/mm3 Sodium (137-145) mmol/L Potassium (3.6-5.0) mmol/L Chloride (98-107) mmol/L Carbon Dioxide (22-30) mmol/L Anion Gap mmol/L BUN (9-20) mg/dL Creatinine (0.8-1.5) mg/dL Estimated GFR ml/min BUN/Creatinine Ratio % Glucose (75-100) mg/dL Calcium (8.4-10.2) mg/dL Total Bilirubin (0.1-1.2) mg/dL AST (5-40) units/L ALT (7-56) units/L Alkaline Phosphatase (35-129) units/L Total Creatine Kinase (55-170) units/L CK-MB (CK-2) (0.0-4.0) ng/mL CK-MB (CK-2) Rel Index (0-4) Troponin T (0.00-0.029) ng/mL Total Protein (6.3-8.2) g/dL Albumin (3.9-5) g/dL Albumin/Globulin Ratio % Urine Color Straw (Yellow) Urine Turbidity Clear (Clear) Urine pH 5.0 (5.0-7.0) Ur Specific [place] 1.009 (1.003-1.030) Urine Protein <15 mg/dl (Negative) mg/dL Urine Glucose (UA) Neg (Negative) mg/dL Urine Ketones Neg (Negative) mg/dL Urine Blood Mod (Negative) Urine Nitrite Neg (Negative) Urine Bilirubin Neg (Negative) Urine Urobilinogen < 2.0 (<2.0) mg/dL Ur Leukocyte Esterase Neg (Negative) Urine WBC (Auto) < 1.0 (0.0-6.0) /HPF Urine RBC (Auto) 9.0 (0.0-6.0) /HPF Urine Mucus Few /HPF Urine Opiates Screen Presumptive negative Urine Methadone Screen Presumptive negative Ur Barbiturates Screen Presumptive negative Ur Phencyclidine Scrn Presumptive negative Ur Amphetamines Screen Presumptive negative U Benzodiazepines Scrn Presumptive negative Urine Cocaine Screen Presumptive negative U Marijuana (THC) Screen Presumptive negative Drugs of Abuse Note Disclamer Plasma/Serum Alcohol (0-0.07) gm% 09/22/17 09/22/17 Range/Units 23:10 23:10 WBC (4.5-11.0) K/mm3 RBC (3.65-5.03) M/mm3 Hgb (11.8-15.2) gm/dl Hct (35.5-45.6) % MCV (84-94) fl MCH (28-32) pg MCHC (32-34) % RDW (13.2-15.2) % Plt Count (140-440) K/mm3 Lymph % (Auto) (13.4-35.0) % [place] % (Auto) (0.0-7.3) % Eos % (Auto) (0.0-4.3) % Baso % (Auto) (0.0-1.8) % Lymph # (1.2-5.4) K/mm3 [place] # (0.0-0.8) K/mm3 Eos # (0.0-0.4) K/mm3 Baso # (0.0-0.1) K/mm3 Seg Neutrophils % (40.0-70.0) % Seg Neutrophils # (1.8-7.7) K/mm3 Sodium 139 (137-145) mmol/L Potassium 4.5 (3.6-5.0) mmol/L Chloride 98.9 (98-107) mmol/L Carbon Dioxide 22 (22-30) mmol/L Anion Gap 23 mmol/L BUN 15 (9-20) mg/dL Creatinine 0.6 L (0.8-1.5) mg/dL Estimated GFR > 60 ml/min BUN/Creatinine Ratio 25 % Glucose 105 H (75-100) mg/dL Calcium 8.9 (8.4-10.2) mg/dL Total Bilirubin 0.20 (0.1-1.2) mg/dL AST 27 (5-40) units/L ALT 28 (7-56) units/L Alkaline Phosphatase 68 (35-129) units/L Total Creatine Kinase 296 H (55-170) units/L CK-MB (CK-2) 6.2 H (0.0-4.0) ng/mL CK-MB (CK-2) Rel Index 2.0 (0-4) Troponin T < 0.010 (0.00-0.029) ng/mL Total Protein 7.2 (6.3-8.2) g/dL Albumin 4.2 (3.9-5) g/dL Albumin/Globulin Ratio 1.4 % Urine Color (Yellow) Urine Turbidity (Clear) Urine pH (5.0-7.0) Ur Specific [place] (1.003-1.030) Urine Protein (Negative) mg/dL Urine Glucose (UA) (Negative) mg/dL Urine Ketones (Negative) mg/dL Urine Blood (Negative) Urine Nitrite (Negative) Urine Bilirubin (Negative) Urine Urobilinogen (<2.0) mg/dL Ur Leukocyte Esterase (Negative) Urine WBC (Auto) (0.0-6.0) /HPF Urine RBC (Auto) (0.0-6.0) /HPF Urine Mucus /HPF Urine Opiates Screen Urine Methadone Screen Ur Barbiturates Screen Ur Phencyclidine Scrn Ur Amphetamines Screen U Benzodiazepines Scrn Urine Cocaine Screen U Marijuana (THC) Screen Drugs of Abuse Note Plasma/Serum Alcohol 0.26 H (0-0.07) gm% - Radiology Data Radiology results: report reviewed (CT HEAD: NEGATIVE FOR ACUTE CXR; 7MM RIGHT UPPER LUNG GRANULOMA VS OSTEOMA RIGHT 6TH RIB) - Medical Decision Making PT EVALUATE BY MENTAL HEALTH COUNSELOR AND HE FEEL PT CAN BE DISCHARGED AND SEEN ON AN OUT PT BASIS Critical care attestation.: If time is entered above; I have spent that time in minutes in the direct care of this critically ill patient, excluding procedure time. ED Disposition Clinical Impression: Alcohol abuse Alcohol intoxication Qualifiers: Complication of substance-induced condition: with unspecified complication Qualified Code(s): F10.929 - Alcohol use, unspecified with intoxication, unspecified Depression Qualifiers: Depression Type: unspecified Qualified Code(s): F32.9 - Major depressive disorder, single episode, unspecified Disposition: DC-01 TO HOME OR SELFCARE Is pt being admited?: No Does the pt Need Aspirin: No Condition: Stable Instructions: Alcohol Intoxication (ED), Abuse of Alcohol (ED) Additional Instructions: PLEASE SEEK HELP WITH YOUR DRINKING. RETURN TO THE ED IF YOU WANT HELP OTHERWISE SEE YOUR DOCTOR IN 2 DAYS Referrals: KAEL ORTIZ MD [Primary Care Provider] - 3-5 Days Time of Disposition: 06:01
--- NOTE | 2017-09-22 22:21 | XRay Report ---
FINAL REPORT PROCEDURE: XR CHEST 1V AP TECHNIQUE: Chest radiograph anteroposterior view. CPT 03981 HISTORY: SHORT OF BREATH COMPARISON: No prior studies are available for comparison. FINDINGS: Heart: Normal. Mediastinum/Vessels: Normal. Lungs/Pleural space: Lungs are expanded. There are no infiltrates, effusions or pneumothoraces. There is a 7 millimeter density in the right upper lung. This could be a calcified granuloma versus osteoma of the right 6th rib.. Bony thorax: No acute osseous abnormality. Life support devices: None. IMPRESSION: Heart size is normal. There are no infiltrates, effusions or pneumothoraces. There is a 7 millimeter density in the right upper lung. This could be a calcified granuloma versus osteoma of the right 6th rib..
--- NOTE | 2017-09-22 22:24 | Cat Scan Report ---
FINAL REPORT PROCEDURE: CT HEAD/BRAIN WO CON TECHNIQUE: Computerized tomography of the head was performed without contrast material. HISTORY: AMS COMPARISON: No prior studies are available for comparison. FINDINGS: Skull and scalp: Normal. Paranasal sinuses: There is fluid in the maxillary sinuses bilaterally.. Ventricles and subarachnoid spaces: There is moderate central and cortical atrophy. There is no hydrocephalus or asymmetry.. Cerebrum: No evidence of hemorrhage, acute infarction or mass . Cerebellum and brainstem: No evidence of hemorrhage, acute infarction or mass. Vasculature: Normal. Comments: None. IMPRESSION: There is no acute intracranial abnormality.
[2017-09-22 22:45] LABS: Bilirubin,Urine NEG (Negative); Blood,Urine MOD (Negative); Color,Urine Straw (Yellow); Mucus,Urine FEW /HPF; Nitrite,Urine NEG (Negative); Protein,Urine <15 mg/dL mg/dL (Negative); Urobilinogen,Urine < 2.0 mg/dL (<2.0); WBC,Urine < 1.0 /HPF (0.0-6.0)
[2017-09-22 22:51] LABS: Amphetamine Screen,Urine PRESUMPTIVE NEGATIVE; Benzodiazepines Screen,Urine PRESUMPTIVE NEGATIVE; Cannabinoid Screen,Urine PRESUMPTIVE NEGATIVE; Cocaine Screen,Urine PRESUMPTIVE NEGATIVE; Methadone Screen,Urine PRESUMPTIVE NEGATIVE; Opiate Screen,Urine PRESUMPTIVE NEGATIVE
[2017-09-22 23:32] LABS: Basophils # (Auto) 0.2 K/mm3 (0.0-0.1); Basophils % (Auto) 2.7 % (0.0-1.8); Eosinophils # (Auto) 0.1 K/mm3 (0.0-0.4); Eosinophils % (Auto) 0.9 % (0.0-4.3); Hematocrit 44.3 % (35.5-45.6); Lymphocytes # (Auto) 2.2 K/mm3 (1.2-5.4); Mean Corpuscular HGB Conc 34 % (32-34); Mean Corpuscular Hemoglobin 31 pg (28-32); Mean Corpuscular Volume 90 fl (84-94); Monocytes # (Auto) 0.5 K/mm3 (0.0-0.8); Monocytes % (Auto) 5.7 % (0.0-7.3); Platelet Count 285 K/mm3 (140-440); Red Blood Count 4.92 M/mm3 (3.65-5.03); Red Cell Distribution Width 13.7 % (13.2-15.2)
[2017-09-23 00:02] LABS: Creatine Kinase MB 6.2 ng/mL (0.0-4.0)
[2017-09-23 00:03] LABS: Alanine Aminotransferase 28 units/L (7-56); Albumin 4.2 g/dL (3.9-5); BUN/Creatinine Ratio 25; Blood Urea Nitrogen 15 mg/dL (9-20); Calcium 8.9 mg/dL (8.4-10.2); Hemolysis Index 9
[2017-09-23 06:58] VITALS: BP 115/69
== END 2017-09-23 08:07 | disposition home or self-care (01) ==
LOC: ED 19:25
DX: F10.129 Alcohol abuse with intoxication, unspecified (principal); Y90.9 Presence of alcohol in blood, level not specified; F32.9 Major depressive disorder, single episode, unspecified; J44.9 Chronic obstructive pulmonary disease, unspecified; C22.9 Malignant neoplasm of liver, not specified as primary or secondary; G89.29 Other chronic pain; F17.200 Nicotine dependence, unspecified, uncomplicated; Z88.0 Allergy status to penicillin; Z79.899 Other long term (current) drug therapy
CPT/HCPCS: 36415; 70450; 71010; 80053; 80307; 81001; 82550; 82553; 84484; 85025; 99284; G0480; 80320

== ENCOUNTER 2017-09-23 08:35 | Emergency (ER) | payer OTHER ==
[2017-09-23 09:06] VITALS: BP 155/105
[2017-09-23 11:05] LABS: Basophils # (Auto) 0.1 K/mm3 (0.0-0.1); Eosinophils % (Auto) 0.5 % (0.0-4.3); Hemoglobin 16.1 gm/dl (11.8-15.2); Lymphocytes # (Auto) 1.4 K/mm3 (1.2-5.4); Lymphocytes % (Auto) 18.9 % (13.4-35.0); Mean Corpuscular HGB Conc 34 % (32-34); Mean Corpuscular Hemoglobin 31 pg (28-32); Mean Corpuscular Volume 90 fl (84-94); Monocytes # (Auto) 0.6 K/mm3 (0.0-0.8); Platelet Count 287 K/mm3 (140-440); Red Blood Count 5.24 M/mm3 (3.65-5.03); Red Cell Distribution Width 13.8 % (13.2-15.2)
[2017-09-23 12:06] LABS: Alanine Aminotransferase 32 units/L (7-56); Albumin 4.3 g/dL (3.9-5); BUN/Creatinine Ratio 30; Blood Urea Nitrogen 21 mg/dL (9-20); Calcium 9.6 mg/dL (8.4-10.2); Hemolysis Index 40
== END 2017-09-23 20:20 | disposition left against medical advice (07) ==
LOC: ED 08:35
DX: Z53.21 Procedure and treatment not carried out due to patient leaving prior to being seen by health care provider (principal)
CPT/HCPCS: 36415; 80053; 85025; G0480; 80320

== ENCOUNTER 2017-10-23 15:08 | Emergency (ER) | payer SELFPAY ==
[2017-10-23 16:12] LABS: Bilirubin,Urine NEG (Negative); Blood,Urine NEG (Negative); Color,Urine Straw (Yellow); Nitrite,Urine NEG (Negative); Protein,Urine <15 mg/dL mg/dL (Negative); RBC,Urine < 1.0 /HPF (0.0-6.0); Urobilinogen,Urine < 2.0 mg/dL (<2.0); WBC,Urine < 1.0 /HPF (0.0-6.0)
[2017-10-23 16:18] LABS: Benzodiazepines Screen,Urine PRESUMPTIVE NEGATIVE; Cannabinoid Screen,Urine PRESUMPTIVE NEGATIVE; Cocaine Screen,Urine PRESUMPTIVE NEGATIVE; Methadone Screen,Urine PRESUMPTIVE NEGATIVE; Opiate Screen,Urine PRESUMPTIVE NEGATIVE
[2017-10-23 16:30] LABS: Amphetamine Screen,Urine PRESUMPTIVE POSITIVE
[2017-10-23 16:34] LABS: Hematocrit 39.8 % (35.5-45.6); Hemoglobin 13.8 gm/dl (11.8-15.2); Mean Corpuscular Hemoglobin 31 pg (28-32); Mean Corpuscular Volume 90 fl (84-94); Red Blood Count 4.41 M/mm3 (3.65-5.03)
[2017-10-23 16:35] LABS: Lymphocytes % (Auto) 22.9 % (13.4-35.0); Mean Corpuscular HGB Conc 35 % (32-34); Platelet Count 45 K/mm3 (140-440); Red Cell Distribution Width 13.2 % (13.2-15.2)
[2017-10-23 16:36] LABS: Basophils % (Auto) 0.6 % (0.0-1.8); Eosinophils % (Auto) 1.1 % (0.0-4.3); Lymphocytes # (Auto) 1.3 K/mm3 (1.2-5.4); Monocytes % (Auto) 12.1 % (0.0-7.3)
[2017-10-23 16:37] LABS: Eosinophils # (Auto) 0.1 K/mm3 (0.0-0.4); Monocytes # (Auto) 0.7 K/mm3 (0.0-0.8)
[2017-10-23 16:44] LABS: BUN/Creatinine Ratio 18; Blood Urea Nitrogen 11 mg/dL (9-20); Calcium 8.9 mg/dL (8.4-10.2); Hemolysis Index 229
--- NOTE | 2017-10-23 23:38 | Emergency Department Report ---
HPI - General Chief Complaint: Psych Time Seen by Provider: 10/23/17 23:02 - HPI HPI: This is a 61-year-old male presents to the emergency department with a complaint of depression, suicidal ideations. He says that his "mind aint right." He admits to a history of schizophrenia but says that he does not take any medication. He says he has been having some auditory and visual hallucinations. He does want to hurt himself but does not have a particular plan is to do it. He has a past medical history of asthma, COPD, seizures. He is a tobacco smoker and admits to some alcohol and methamphetamine use but none today. He does not have any particular thing that is causing him to be depressed but says that he has "nothing to live for." He lives in [facility] "every once in a while." ED Past Medical Hx - Past Medical History Hx Hypertension: No Hx CVA: No Hx Heart Attack/AMI: No Hx Congestive Heart Failure: No Hx Diabetes: No Hx Deep Vein Thrombosis: No Hx Pulmonary Embolism: No Hx GERD: No Hx Liver Disease: No Hx Renal Disease: No Hx Sickle Cell Disease: No Hx Arthritis: No Hx Headaches / Migraines: No Hx Seizures: Yes Hx Kidney Stones: No Hx Psychiatric Treatment: Yes (states "I can't remember" to most questions) Hx Asthma: Yes Hx COPD: Yes Hx Tuberculosis: No Hx Dementia: No Hx HIV: No Additional medical history: Hep B, Bronchitis and chronic back pain - Surgical History Hx Coronary Stent: No Hx Open Heart Surgery: No Hx Pacemaker: No Hx Internal Defibrillator: No Hx Cholecystectomy: No Hx Appendectomy: No Hx Breast Surgery: No - Social History Smoking Status: Current Every Day Smoker Substance Use Type: Alcohol, Cocaine, Other - Medications Home Medications: Home Medications Medication Instructions Recorded Confirmed Last Taken Type PHENobarbital 30 mg PO Q8H 06/30/14 10/24/17 Unknown History Phenytoin [Dilantin] 100 mg PO TID 06/30/14 10/24/17 Unknown History HYDROcodone/APAP 5-325 [[place] 1 each PO Q6HR PRN #20 tablet 10/23/14 10/24/17 Unknown Rx 5-325 mg TAB] Acetaminophen/Codeine [Tylenol #3] 1 tab PO Q8H PRN #12 tablet 05/15/15 Unknown Rx Ibuprofen [Motrin 800 MG tab] 800 mg PO Q8HR PRN #21 tablet 05/15/15 10/24/17 Unknown Rx ED Review of Systems ROS: Stated complaint: PSYCH Other details as noted in HPI Comment: All other systems reviewed and negative Constitutional: denies: chills, fever Eyes: denies: eye pain, eye discharge, vision change ENT: denies: ear pain, throat pain Respiratory: denies: cough, shortness of breath, wheezing Cardiovascular: denies: chest pain, palpitations Gastrointestinal: denies: abdominal pain, nausea, diarrhea Genitourinary: denies: urgency, dysuria Musculoskeletal: denies: back pain, joint swelling, arthralgia Skin: denies: rash, lesions Neurological: denies: headache, weakness, paresthesias Psychiatric: depression, auditory hallucinations, visual hallucinations, suicidal thoughts. denies: homicidal thoughts Physical Exam - Physical Exam Vital Signs: Vital Signs 10/23/17 15:40 Temperature 98.3 F Pulse Rate 79 Respiratory 18 Rate Blood Pressure 161/80 O2 Sat by Pulse 97 Oximetry Physical Exam: GENERAL: The patient is well-developed well-nourished. HENT: Normocephalic. Atraumatic. Patient has moist mucous membranes. EYES: Extraocular motions are intact. Pupils equal reactive to light bilaterally. NECK: Supple. Trachea is midline. CHEST/LUNGS: Clear to auscultation. There is no respiratory distress noted. HEART/CARDIOVASCULAR: Regular. There is no tachycardia. There is no murmur. ABDOMEN: Abdomen is soft, nontender. Patient has normal bowel sounds. There is no abdominal distention. SKIN: Skin is warm and dry. NEURO: The patient is awake, alert, and oriented. The patient is cooperative. The patient has no focal neurologic deficits. The patient has normal speech. MUSCULOSKELETAL: There is no tenderness or deformity. There is no limitation range of motion. There is no evidence of acute injury. PSYCH: Patient has a flat affect. ED Course Vital Signs 10/23/17 15:40 Temperature 98.3 F Pulse Rate 79 Respiratory 18 Rate Blood Pressure 161/80 O2 Sat by Pulse 97 Oximetry ED Medical Decision Making - Lab Data Result diagrams: 10/23/17 16:07 10/23/17 16:07 - Medical Decision Making Patient presents with a complaint of suicidal ideations and depression. While he claims hallucinations and a history of schizophrenia, he does not appear to be responding to any internal stimuli. 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 Vital signs stable throughout his ED course. The patient appears medically stable for any inpatient psychiatric placement. - Differential Diagnosis schizophrenia, schizoaffective, bipolar disorder, depression, substance abu Critical Care Time: No Critical care attestation.: If time is entered above; I have spent that time in minutes in the direct care of this critically ill patient, excluding procedure time. ED Disposition Clinical Impression: Suicidal ideations, Methamphetamine use Depression Qualifiers: Depression Type: unspecified Qualified Code(s): F32.9 - Major depressive disorder, single episode, unspecified Disposition: DC/TX-65 PSY HOSP/PSY UNIT Is pt being admited?: No Condition: Stable Time of Disposition: 00:52
--- NOTE | 2017-10-24 11:55 | Consultation ---
History of Present Illness - Reason for Consult Consult date: 10/24/17 Reason for consult: Mental Health Evaluation Requesting physician: ANA MARIA HOLLAND - Chief Complaint Chief complaint: "I don't need to live" - History of Present Psychiatric Illness This is a 61-year-old male presents to the emergency department with a complaint of depression and suicidal ideations. Today the patient is cooperative, but anxious during the assessment. He stated having a substance abuse "issue" along with being an alcoholic for several years. He could not recall his last drink of alcohol (etoh). The patient is positive for amphetamines. He stated that he use "drugs" more frequently when is depressed. He stated that he hear voices constantly telling him "negative thoughts." He stated that he hear voices even when he isn't using recreational drugs or intoxicated from alcohol (etoh). He denies any previous attempts of suicide, but stated that he is suicidal currently with no plan. He stated that his life is full of "bitterness and sadness." He would not elaborate about life when asked. He did state being homeless and rate his depression 10/10, with 10 being the worse. He denies any manic episodes in the past. He admitted to erratic sleep, but denies a poor appetite. He stated that he took Zoloft in the past for depression. He stated that he feels anxious about not knowing his future. Medications and Allergies Allergies Allergy/AdvReac Type Severity Reaction Status Date / Time Penicillins Allergy Unknown Verified 09/23/17 09:03 Home Medications Medication Instructions Recorded Confirmed Last Taken Type PHENobarbital 30 mg PO Q8H 06/30/14 10/24/17 Unknown History Phenytoin [Dilantin] 100 mg PO TID 06/30/14 10/24/17 Unknown History HYDROcodone/APAP 5-325 [[place] 1 each PO Q6HR PRN #20 tablet 10/23/14 10/24/17 Unknown Rx 5-325 mg TAB] Acetaminophen/Codeine [Tylenol #3] 1 tab PO Q8H PRN #12 tablet 05/15/15 Unknown Rx Ibuprofen [Motrin 800 MG tab] 800 mg PO Q8HR PRN #21 tablet 05/15/15 10/24/17 Unknown Rx Past psychiatric history - Past Medical History Past Medical History: COPD Past Surgical History: No surgical history - past Psychiatric treatment and history psychiatric treatment history: Patient cannot confirm or deny a psy hx. Denies a fam psy hx. - Social History Social history: other (Homeless) Mental Status Exam - Vital signs Last Vital Signs Temp 98.0 F 10/24/17 00:25 Pulse 97 H 10/24/17 00:25 Resp 16 10/24/17 00:25 BP 134/90 10/24/17 00:25 Pulse Ox 99 10/24/17 00:25 - Exam Narrative exam: MSE: Appearance: calm, cooperative Behavior: regular eye contact Speech: regular rate and tone Mood: "I am sad" withdrawn Affect: congruent to mood Thought Process: circumstantial Thought Content: denies HI's and AVH's Motor Activity: ambulatory Cognition: A/O x3 Insight: variable Judgment: variable Results Result Diagrams: 10/23/17 16:07 10/23/17 16:07 Abnormal lab results 10/23/17 10/23/17 10/23/17 Range/Units 16:07 16:07 16:07 MCHC 35 H (32-34) % Plt Count 45 L (140-440) K/mm3 [place] % (Auto) 12.1 H (0.0-7.3) % Sodium 132 L (137-145) mmol/L Chloride 93.9 L (98-107) mmol/L Creatinine 0.6 L (0.8-1.5) mg/dL Glucose 114 H (75-100) mg/dL Salicylates < 0.3 L (2.8-20.0) mg/dL All other labs normal. Assessment and Plan Assessment and plan: Impression: Hx of alcoholism. MDD, Severe Type with psychosis. Substance Use DO (amphetamines). Today the patient is cooperative, but anxious during the assessment. Patient endorses SI's. DDx: R/O Bipolar DO, R/O Schizoaffective DO, R/O Substance Induced Psychotic/ Mood DO Recommendation/Plan: Continue 1013 with placement to inpatient psy services. Start Zoloft 50 mg PO for depression, Seroquel 100 mg PO HS for psyhosis, and Vistaril 25 mg Q6hrs PRN for anxiety. Discussed possible metabolic side effects of Seroquel with the patient. Discussed possible suicidality/medication induced adithya with patient reference Zoloft. Discussed the importance to abstain from recreational drug use and alcohol consumption (etoh). Discussed generalized coping skill with patient. Monitor the patient for possible alcohol withdrawals.
[2017-10-24] MEDS ORDERED: ZOLOFT PO ONE (13:16)
[2017-10-24] MEDS ORDERED: TYLENOL PO ONE (15:49)
[2017-10-24] MEDS ORDERED: ZOLOFT ONE (15:59)
[2017-10-24] MEDS: VISTARIL PO PRN (22:28)
--- NOTE | 2017-10-25 15:25 | Progress Note ---
Subjective - Reason for Consult Consult date: 10/25/17 Reason for consult: Psychiatry Follow-up - Chief Complaint Chief complaint: "I feel better" This is a 61-year-old male presents to the emergency department with a complaint of depression and suicidal ideations. Today the patient is calm and cooperative during the assessment. He denies AH's, but still admitting to passive SI's. He stated that he may need to "soon." He denies HI's and VH' s. He denies any side effects of his medications. Mental Status Exam - Vital signs Last Vital Signs Temp 98.5 F 10/25/17 10:00 Pulse 72 10/25/17 10:00 Resp 18 10/25/17 12:34 BP 127/84 10/25/17 10:00 Pulse Ox 98 10/25/17 12:34 - Exam Narrative exam: MSE: Appearance: calm, cooperative Behavior: regular eye contact Speech: regular rate and tone Mood: "better" Affect: flat Thought Process: circumstantial Thought Content: denies HI's and AVH's Motor Activity: ambulatory Cognition: A/O x3 Insight: variable Judgment: variable Assessment and Plan Impression: Hx of alcoholism. MDD, Severe Type with psychosis. Substance Use DO (amphetamines). Today the patient is calm and cooperative during the assessment. Patient has passive SI's. No alcohol withdrawals noted. DDx: R/O Bipolar DO, R/O Schizoaffective DO, R/O Substance Induced Psychotic/ Mood DO Recommendation/Plan: Continue 1013 with placement to inpatient psy services. Continue Zoloft 50 mg PO for depression, Seroquel 100 mg PO HS for psyhosis, and Vistaril 25 mg Q6hrs PRN for anxiety. Discussed possible metabolic side effects of Seroquel with the patient. Discussed possible suicidality/medication induced adithya with patient reference Zoloft. Discussed the importance to abstain from recreational drug use and alcohol consumption (etoh). Discussed generalized coping skill with patient. Monitor the patient for possible alcohol withdrawals.
[2017-10-25] MEDS: ZOLOFT PO SCH (15:41)
[2017-10-25] MEDS: VISTARIL PO PRN ×2 (15:41→21:41)
[2017-10-26] MEDS: ZOLOFT PO SCH (10:21)
--- NOTE | 2017-10-26 18:39 | Progress Note ---
Subjective - Reason for Consult Consult date: 10/26/17 Reason for consult: psychiatric follow-up Requesting physician: ANA MARIA HOLLAND - Chief Complaint Chief complaint: "I am seeing people in the vents". 61-year-old male presented to the emergency room with chief complaints of depression and suicidal ideations. He was positive for methamphetamines. Initially he did endorse having suicidal ideations and wanted to " soon". Today he was tearful, and labile. He stated that he was "seeing people in the vents". He however denied any auditory hallucinations. Thought process was disorganized. He denied any side effects to his medications. Per records, patient tried to elope from the emergency room yesterday. Mental Status Exam - Vital signs Last Vital Signs Temp 98.2 F 10/26/17 07:42 Pulse 69 10/26/17 07:42 Resp 16 10/26/17 07:42 BP 161/97 10/26/17 07:42 Pulse Ox 97 10/26/17 07:42 - Exam Orientation: time, place Affect: anxious, other (tearful) Mood: fearful, anxious Thought content: paranoia Thought Process: Disorganized Perceptions: visual, hallucinations Speech: rapid Concentration: distractible Motor activity: agitated Level of consciousness: confused Memory: Intact Sleep Symptoms: Difficulty Falling Asleep Appetite: increased Assessment and Plan Impression: Major depressive disorder severe with psychosis Methamphetamine use disorder Alcohol use disorder Plan: Continue 1013 and facilitate placement to inpatient psychiatric services. Continue Zoloft 50 mg, Seroquel 100 mg at bedtime for psychosis and Vistaril 25 mg every 6 hours when necessary for anxiety. Will consider increase in Seroquel, if patient continues to endorse visual hallucinations. Will continue to follow-up.
[2017-10-27] MEDS ORDERED: TYLENOL ONE ×2 (09:53→17:26)
[2017-10-27] MEDS ORDERED: TYLENOL PO ONE ×2 (10:03→17:24)
[2017-10-27] MEDS: ZOLOFT PO SCH (10:04)
[2017-10-27] MEDS: VISTARIL PO PRN (22:04)
--- NOTE | 2017-10-28 11:34 | Progress Note ---
Subjective - Reason for Consult Consult date: 10/28/17 Reason for consult: Psychiatry Follow-up - Chief Complaint Chief complaint: "When will I be leaving" 61-year-old male presented to the emergency room with chief complaints of depression and suicidal ideations. Today the patient is calm and cooperative during the assessment. He stated that he was "going through something" prior to his admission. He stated that he should be able to leave, because he is "fine." He was asked about being suicidal, he would not confirm or deny. He denies HI's and AVH"s. He denies any side effects of his medication. Mental Status Exam - Vital signs Last Vital Signs Temp 98.8 F 10/27/17 16:09 Pulse 74 10/27/17 22:05 Resp 18 10/27/17 22:05 BP 113/73 10/27/17 22:05 Pulse Ox 99 10/27/17 22:05 - Exam Narrative exam: MSE: Appearance: calm, cooperative Behavior: regular eye contact Speech: regular rate and tone Mood: "okay" Affect: flat Thought Process: circumstantial Thought Content: denies HI's and AVH's, he would confirm or deny SI's. Motor Activity: ambulatory Cognition: A/O x3 Insight: variable Judgment: variable Assessment and Plan Impression: Hx of alcoholism. MDD, Severe Type with psychosis. Substance Use DO (amphetamines). Today the patient is calm and cooperative during the assessment. The patient would confirm or deny SI's. DDx: R/O Bipolar DO, R/O Schizoaffective DO, R/O Substance Induced Psychotic/ Mood DO Recommendation/Plan: Continue 1013 with placement to [facility] pending transport time. Continue Zoloft 50 mg PO for depression, Seroquel 100 mg PO HS for psyhosis, and Vistaril 25 mg Q6hrs PRN for anxiety. Discussed possible metabolic side effects of Seroquel with the patient. Discussed possible suicidality/medication induced adithya with patient reference Zoloft. Discussed the importance to abstain from recreational drug use and alcohol consumption ( etoh). Discussed generalized coping skill with patient.
[2017-10-28] MEDS: ZOLOFT PO SCH (15:56)
[2017-10-29 07:57] VITALS: BP 120/60
== END 2017-10-29 08:01 ==
LOC: ED 15:08 → EEVIPCON 15:08 → ED 10-29 08:01
DX: F32.9 Major depressive disorder, single episode, unspecified (principal); R45.851 Suicidal ideations; F20.9 Schizophrenia, unspecified; F17.200 Nicotine dependence, unspecified, uncomplicated; J45.909 Unspecified asthma, uncomplicated
CPT/HCPCS: 36415; 80048; 80307; 81001; 85025; 99282; G0480; 80320; Q0177

== ENCOUNTER 2017-11-21 11:47 | Emergency (ER) | payer SELFPAY ==
[2017-11-21] MEDS ORDERED: HALDOL IM PRN (12:35)
[2017-11-21 12:43] LABS: Basophils # (Auto) 0.1 K/mm3 (0.0-0.1); Eosinophils % (Auto) 0.4 % (0.0-4.3); Hematocrit 42.6 % (35.5-45.6); Hemoglobin 14.2 gm/dl (11.8-15.2); Lymphocytes # (Auto) 2.6 K/mm3 (1.2-5.4); Lymphocytes % (Auto) 33.7 % (13.4-35.0); Mean Corpuscular HGB Conc 33 % (32-34); Mean Corpuscular Hemoglobin 30 pg (28-32); Mean Corpuscular Volume 90 fl (84-94); Monocytes # (Auto) 0.7 K/mm3 (0.0-0.8); Monocytes % (Auto) 8.8 % (0.0-7.3); Platelet Count 288 K/mm3 (140-440); Red Blood Count 4.72 M/mm3 (3.65-5.03); Red Cell Distribution Width 13.2 % (13.2-15.2)
--- NOTE | 2017-11-21 12:44 | Emergency Department Report ---
HPI - General Chief Complaint: Alcohol Time Seen by Provider: 11/21/17 12:35 - HPI HPI: Room 25 The patient is a 61-year-old male presenting with a chief complaint of altered mental status. Per EMS patient was found in the hua, shortness and intoxicated. Family reported history of alcohol and drug abuse. EMS administered 2 mg of Narcan prior to arrival. The patient appears intoxicated and is agitated requiring restraints. Patient is not able to provide a history Location: Mental state Duration: Unknown Quality: Intoxicated Severity: Severe Modifying factors: [see above] Context: [see above] Mode of transportation: [not driving] ED Past Medical Hx - Past Medical History Hx Seizures: Yes Hx Psychiatric Treatment: Yes (states "I can't remember" to most questions) Hx Asthma: Yes Hx COPD: Yes Additional medical history: Hep B, Bronchitis and chronic back pain - Family History Family history: no significant - Social History Smoking Status: Unknown if ever smoked Substance Use Type: Alcohol - Medications Home Medications: Home Medications Medication Instructions Recorded Confirmed Last Taken Type PHENobarbital 30 mg PO Q8H 06/30/14 10/24/17 Unknown History Phenytoin [Dilantin] 100 mg PO TID 06/30/14 10/24/17 Unknown History HYDROcodone/APAP 5-325 [[place] 1 each PO Q6HR PRN #20 tablet 10/23/14 10/24/17 Unknown Rx 5-325 mg TAB] Acetaminophen/Codeine [Tylenol #3] 1 tab PO Q8H PRN #12 tablet 05/15/15 Unknown Rx Ibuprofen [Motrin 800 MG tab] 800 mg PO Q8HR PRN #21 tablet 05/15/15 10/24/17 Unknown Rx ED Review of Systems ROS: Stated complaint: AMS Other details as noted in HPI Comment: Unobtainable due to pts medical conditions Physical Exam - Physical Exam Vital Signs: Vital Signs 11/21/17 11/21/17 11/21/17 11:53 11:57 12:01 Temperature 97.7 F Pulse Rate 79 74 Respiratory 14 14 Rate Blood Pressure 115/83 O2 Sat by Pulse 94 91 Oximetry 11/21/17 12:23 Temperature 97.7 F Pulse Rate Respiratory Rate Blood Pressure O2 Sat by Pulse Oximetry Physical Exam: GENERAL: The patient is well-developed well-nourished thin male standing in room appearing unbalanced on his feet. [] HEENT: Normocephalic. Atraumatic. Extraocular motions are intact. Patient has moist mucous membranes. NECK: Supple. Trachea midline CHEST/LUNGS: Clear to auscultation. There is no respiratory distress noted. HEART/CARDIOVASCULAR: Regular. There is no tachycardia. There is no gallop rub or murmur. ABDOMEN: Abdomen is soft, nontender. Patient has normal bowel sounds. There is no abdominal distention. SKIN: There is no rash. There is no edema. There is no diaphoresis. NEURO: The patient is awake, but appears intoxicated. The patient is cooperative. Patient unsteady on his feet. The patient has normal speech MUSCULOSKELETAL: There is no evidence of acute injury. ED Course Vital Signs 11/21/17 11/21/17 11/21/17 11:53 11:57 12:01 Temperature 97.7 F Pulse Rate 79 74 Respiratory 14 14 Rate Blood Pressure 115/83 O2 Sat by Pulse 94 91 Oximetry 11/21/17 12:23 Temperature 97.7 F Pulse Rate Respiratory Rate Blood Pressure O2 Sat by Pulse Oximetry ED Medical Decision Making - Lab Data Result diagrams: 11/21/17 12:21 11/21/17 12:21 Laboratory Tests 11/21/17 11/21/17 11/21/17 12:21 12:21 12:21 WBC 7.7 RBC 4.72 Hgb 14.2 Hct 42.6 MCV 90 MCH 30 MCHC 33 RDW 13.2 Plt Count 288 Lymph % (Auto) 33.7 [place] % (Auto) 8.8 H Eos % (Auto) 0.4 Baso % (Auto) 1.0 Lymph # 2.6 [place] # 0.7 Eos # 0.0 Baso # 0.1 Seg Neutrophils % 56.1 Seg Neutrophils # 4.3 Sodium 142 Potassium 3.8 Chloride 102.3 Carbon Dioxide 24 Anion Gap 20 BUN 11 Creatinine 0.9 Estimated GFR > 60 BUN/Creatinine Ratio 12 Glucose 89 Calcium 8.6 Total Bilirubin 0.20 AST 18 ALT 15 Alkaline Phosphatase 73 Total Creatine Kinase CK-MB (CK-2) CK-MB (CK-2) Rel Index Troponin T Total Protein 7.3 Albumin 3.8 L Albumin/Globulin Ratio 1.1 Lipase 37 Urine Color Urine Turbidity Urine pH Ur Specific [place] Urine Protein Urine Glucose (UA) Urine Ketones Urine Blood Urine Nitrite Urine Bilirubin Urine Urobilinogen Ur Leukocyte Esterase Urine WBC (Auto) Urine RBC (Auto) Urine Bacteria (Auto) Hyaline Casts Urine Mucus Urine Opiates Screen Urine Methadone Screen Ur Barbiturates Screen Phenytoin Ur Phencyclidine Scrn Ur Amphetamines Screen U Benzodiazepines Scrn Urine Cocaine Screen U Marijuana (THC) Screen Drugs of Abuse Note Plasma/Serum Alcohol 0.36 H 11/21/17 11/21/17 11/21/17 12:21 12:21 12:21 WBC RBC Hgb Hct MCV MCH MCHC RDW Plt Count Lymph % (Auto) [place] % (Auto) Eos % (Auto) Baso % (Auto) Lymph # [place] # Eos # Baso # Seg Neutrophils % Seg Neutrophils # Sodium Potassium Chloride Carbon Dioxide Anion Gap BUN Creatinine Estimated GFR BUN/Creatinine Ratio Glucose Calcium Total Bilirubin AST ALT Alkaline Phosphatase Total Creatine Kinase 92 CK-MB (CK-2) 2.1 CK-MB (CK-2) Rel Index 2.2 Troponin T < 0.010 Total Protein Albumin Albumin/Globulin Ratio Lipase Urine Color Straw Urine Turbidity Clear Urine pH 5.0 Ur Specific [place] 1.004 Urine Protein <15 mg/dl Urine Glucose (UA) Neg Urine Ketones Neg Urine Blood Neg Urine Nitrite Neg Urine Bilirubin Neg Urine Urobilinogen < 2.0 Ur Leukocyte Esterase Neg Urine WBC (Auto) < 1.0 Urine RBC (Auto) < 1.0 Urine Bacteria (Auto) 2+ Hyaline Casts 2 Urine Mucus Few Urine Opiates Screen Presumptive negative Urine Methadone Screen Presumptive negative Ur Barbiturates Screen Presumptive negative Phenytoin Ur Phencyclidine Scrn Presumptive negative Ur Amphetamines Screen Presumptive negative U Benzodiazepines Scrn Presumptive negative Urine Cocaine Screen Presumptive positive U Marijuana (THC) Screen Presumptive negative Drugs of Abuse Note Disclamer Plasma/Serum Alcohol 11/21/17 12:59 WBC RBC Hgb Hct MCV MCH MCHC RDW Plt Count Lymph % (Auto) [place] % (Auto) Eos % (Auto) Baso % (Auto) Lymph # [place] # Eos # Baso # Seg Neutrophils % Seg Neutrophils # Sodium Potassium Chloride Carbon Dioxide Anion Gap BUN Creatinine Estimated GFR BUN/Creatinine Ratio Glucose Calcium Total Bilirubin AST ALT Alkaline Phosphatase Total Creatine Kinase CK-MB (CK-2) CK-MB (CK-2) Rel Index Troponin T Total Protein Albumin Albumin/Globulin Ratio Lipase Urine Color Urine Turbidity Urine pH Ur Specific [place] Urine Protein Urine Glucose (UA) Urine Ketones Urine Blood Urine Nitrite Urine Bilirubin Urine Urobilinogen Ur Leukocyte Esterase Urine WBC (Auto) Urine RBC (Auto) Urine Bacteria (Auto) Hyaline Casts Urine Mucus Urine Opiates Screen Urine Methadone Screen Ur Barbiturates Screen Phenytoin 0.8 L Ur Phencyclidine Scrn Ur Amphetamines Screen U Benzodiazepines Scrn Urine Cocaine Screen U Marijuana (THC) Screen Drugs of Abuse Note Plasma/Serum Alcohol - EKG Data -: EKG Interpreted by Me EKG shows normal: sinus rhythm Rate: normal - EKG Data When compared to previous EKG there are: previous EKG unavailable Interpretation: other (no ischemic changes seen) - Radiology Data Radiology results: report reviewed (CT head), image reviewed (CT head) CT head (read by radiologist)-no acute intracranial process noted - Medical Decision Making Discuss plan of care with nurse (Nandini). States that patient may be discharged to the care of family or he may be discharged home when his alcohol is redrawn and is measured at <0.08 - Differential Diagnosis intoxication Critical care attestation.: If time is entered above; I have spent that time in minutes in the direct care of this critically ill patient, excluding procedure time. ED Disposition Clinical Impression: Alcohol intoxication, Cocaine use Disposition: DC-01 TO HOME OR SELFCARE Is pt being admited?: No Does the pt Need Aspirin: No Condition: Stable Instructions: Cocaine Abuse (ED), Alcohol Intoxication (ED), At-Risk Alcohol Use (ED) Additional Instructions: Return to the emergency department immediately should you develop worsening symptoms, fever, inability to tolerate food or liquid or any other concerns. Referrals: PRIMARY CARE, [Primary Care Provider] - 3-5 Days [facility] [Outside] - 3-5 Days [facility] [Outside] - 3-5 Days Time of Disposition: 15:50 (d/c to family or when etoh<0.08)
[2017-11-21 13:06] LABS: Bacteria,Urine 2+ /HPF (Negative); Bilirubin,Urine NEG (Negative); Blood,Urine NEG (Negative); Color,Urine Straw (Yellow); Hyaline Casts,Urine 2 /LPF; Mucus,Urine FEW /HPF; Protein,Urine <15 mg/dL mg/dL (Negative); RBC,Urine < 1.0 /HPF (0.0-6.0); Urobilinogen,Urine < 2.0 mg/dL (<2.0); WBC,Urine < 1.0 /HPF (0.0-6.0)
[2017-11-21 13:07] LABS: Alanine Aminotransferase 15 units/L (7-56); Albumin 3.8 g/dL (3.9-5); BUN/Creatinine Ratio 12; Blood Urea Nitrogen 11 mg/dL (9-20); Calcium 8.6 mg/dL (8.4-10.2); Hemolysis Index 5; Lipase 37 units/L (13-60)
[2017-11-21 13:32] LABS: Amphetamine Screen,Urine PRESUMPTIVE NEGATIVE; Benzodiazepines Screen,Urine PRESUMPTIVE NEGATIVE; Cannabinoid Screen,Urine PRESUMPTIVE NEGATIVE; Methadone Screen,Urine PRESUMPTIVE NEGATIVE; Opiate Screen,Urine PRESUMPTIVE NEGATIVE
[2017-11-21 13:44] LABS: Cocaine Screen,Urine PRESUMPTIVE POSITIVE
[2017-11-21] MEDS ORDERED: FOLVITE 1 MG, INFUVITE 10 ML, MAGNESIUM SULFATE 2 GM in NACL 0.9% 1000 ML 1,000 ML IV ONE (13:45)
[2017-11-21 13:52] LABS: Creatine Kinase MB 2.1 ng/mL (0.0-4.0)
--- NOTE | 2017-11-21 15:47 | Cat Scan Report ---
FINAL REPORT EXAM: CT HEAD/BRAIN WO CON HISTORY: altered mental status TECHNIQUE: Standard unenhanced CT of the head at 5.0 millimeter axial increments. PRIORS: CT head 09/22/2017 FINDINGS: The ventricular system is normal in size and configuration. There is moderate atrophy again noted, stable There is no evidence for mass lesion, mass effect, midline shift, acute intracranial hemorrhage, or acute ischemia/ infarction. No evidence for acute skull fracture is seen. Deformity of the nasal bones bilaterally suggest remote fractures. No abnormality in the overlying scalp soft tissues is seen. Visualized paranasal sinuses demonstrate extensive mucosal thickening throughout both maxillary sinuses, similar to the previous study. IMPRESSION: No acute intracranial process noted. No change. Chronic maxillary sinusitis bilaterally. Atrophy.
[2017-11-21 18:58] VITALS: BP 103/63
[2017-11-22] MEDS ORDERED: VITAMIN B-1 PO SCH (10:00)
== END 2017-11-21 18:59 | disposition home or self-care (01) ==
LOC: ED 11:47
DX: F10.129 Alcohol abuse with intoxication, unspecified (principal); F14.10 Cocaine abuse, uncomplicated; J44.9 Chronic obstructive pulmonary disease, unspecified
CPT/HCPCS: 36415; 70450; 80053; 80185; 80307; 81001; 82550; 82553; 83690; 84484; 85025; 93005; 93010; 96365; 96366; 96372; 99285; G0480; J1630; J3475; J7030; 80320

== ENCOUNTER 2017-12-24 19:07 | Emergency (ER) | payer SELFPAY ==
[2017-12-24 20:05] LABS: Basophils # (Auto) 0.1 K/mm3 (0.0-0.1); Basophils % (Auto) 0.6 % (0.0-1.8); Eosinophils # (Auto) 0.1 K/mm3 (0.0-0.4); Eosinophils % (Auto) 0.8 % (0.0-4.3); Hematocrit 42.8 % (35.5-45.6); Hemoglobin 14.4 gm/dl (11.8-15.2); Lymphocytes # (Auto) 3.8 K/mm3 (1.2-5.4); Lymphocytes % (Auto) 44.7 % (13.4-35.0); Mean Corpuscular HGB Conc 34 % (32-34); Mean Corpuscular Hemoglobin 30 pg (28-32); Mean Corpuscular Volume 90 fl (84-94); Monocytes # (Auto) 0.6 K/mm3 (0.0-0.8); Monocytes % (Auto) 7.5 % (0.0-7.3); Platelet Count 277 K/mm3 (140-440); Red Blood Count 4.75 M/mm3 (3.65-5.03)
[2017-12-24 20:18] LABS: Alanine Aminotransferase 15 units/L (7-56); Albumin 3.8 g/dL (3.9-5); BUN/Creatinine Ratio 9; Blood Urea Nitrogen 7 mg/dL (9-20); Hemolysis Index 13
--- NOTE | 2017-12-24 21:12 | Emergency Department Report ---
ED Alcohol HPI - General Chief Complaint: Back Pain/Injury Stated Complaint: BACK PAIN Time Seen by Provider: 12/24/17 19:37 Source: patient Mode of arrival: Ambulatory Limitations: No Limitations - History of Present Illness Initial Comments: 62 yo male hx of seizures, hep B, alcohol and drug abuse presents to the hospital acutely intoxicated and belligerant. Pt bought in by [facility] with initial complaint of back pain and was stumbling and resistant care as per triage. Pt c/ l left side pain. Pt required physical restraints due to acute intoxication and unsteady gait. Pt admits to daily alcohol abuse and previous withdrawal tremors and seizures (unlear if etoh withdraw sz or primary sz d/o although sz meds are listed from previous NOV) Pt c/o right sided pain. - Related Data Home Medications Medication Instructions Recorded Confirmed Last Taken PHENobarbital 30 mg PO Q8H 06/30/14 10/24/17 Unknown Phenytoin [Dilantin] 100 mg PO TID 06/30/14 10/24/17 Unknown Previous Rx's Medication Instructions Recorded Last Taken Type HYDROcodone/APAP 5-325 [[place] 1 each PO Q6HR PRN #20 tablet 10/23/14 Unknown Rx 5-325 mg TAB] Acetaminophen/Codeine [Tylenol #3] 1 tab PO Q8H PRN #12 tablet 05/15/15 Unknown Rx Ibuprofen [Motrin 800 MG tab] 800 mg PO Q8HR PRN #21 tablet 05/15/15 Unknown Rx Allergies Allergy/AdvReac Type Severity Reaction Status Date / Time Penicillins Allergy Unknown Verified 09/23/17 09:03 ED Review of Systems ROS: Stated complaint: BACK PAIN Other details as noted in HPI Comment: All other systems reviewed and negative ED Past Medical Hx - Past Medical History Previous Medical History?: Yes Hx Heart Attack/AMI: No Hx Congestive Heart Failure: No Hx Diabetes: No Hx Deep Vein Thrombosis: No Hx Pulmonary Embolism: No Hx GERD: No Hx Liver Disease: No Hx Renal Disease: No Hx Sickle Cell Disease: No Hx Arthritis: No Hx Headaches / Migraines: No Hx Seizures: Yes Hx Kidney Stones: No Hx Psychiatric Treatment: Yes (states "I can't remember" to most questions) Hx Asthma: Yes Hx COPD: Yes Hx Tuberculosis: No Hx Dementia: No Hx HIV: No Additional medical history: Hep B, Bronchitis and chronic back pain - Surgical History Hx Coronary Stent: No Hx Open Heart Surgery: No Hx Pacemaker: No Hx Internal Defibrillator: No Hx Cholecystectomy: No Hx Appendectomy: No Hx Breast Surgery: No - Social History Smoking Status: Current Every Day Smoker Substance Use Type: Alcohol - Medications Home Medications: Home Medications Medication Instructions Recorded Confirmed Last Taken Type PHENobarbital 30 mg PO Q8H 06/30/14 10/24/17 Unknown History Phenytoin [Dilantin] 100 mg PO TID 06/30/14 10/24/17 Unknown History HYDROcodone/APAP 5-325 [[place] 1 each PO Q6HR PRN #20 tablet 10/23/14 10/24/17 Unknown Rx 5-325 mg TAB] Acetaminophen/Codeine [Tylenol #3] 1 tab PO Q8H PRN #12 tablet 05/15/15 Unknown Rx Ibuprofen [Motrin 800 MG tab] 800 mg PO Q8HR PRN #21 tablet 05/15/15 10/24/17 Unknown Rx ED Physical Exam - General Limitations: No Limitations - Other Other exam information: General: etoh on breath Head exam: Atraumatic, normocephalic Eyes exam: Normal appearance, pupils equal reactive to light, nonicteric sclera ENT: Moist mucous membrane, normal oropharynx Neck exam: Normal inspection, full range of motion, no meningismus nontender Respiratory exam: Clear to auscultation bilateral, no wheezes, rales, crackles Cardiovascular: Normal rate and rhythm, normal heart sounds Abdomen: Soft, nondistended, and nontender, with normal bowel sounds, no rebound, or guarding Extremity: Full range of motion normal inspection no deformity Back: Normal Inspection, full range of motion, no tenderness Neurologic: Alert, oriented x3, cranial nerves intact, no motor or sensory deficit Psychiatric: tearful, belligerent Skin: Warm, dry, intact, no ecchymosis ED Course Vital Signs 12/24/17 12/24/17 12/25/17 19:29 20:41 19:40 Temperature 97.8 F 97.2 F L 98 F Pulse Rate 82 65 80 Respiratory 16 18 18 Rate Blood Pressure 111/75 Blood Pressure 105/73 124/70 [Left] O2 Sat by Pulse 94 90 98 Oximetry 12/25/17 12/25/17 20:30 21:35 Temperature 98 F Pulse Rate 80 Respiratory 18 18 Rate Blood Pressure Blood Pressure 132/77 [Left] O2 Sat by Pulse 98 Oximetry - Reevaluation(s) Reevaluation #1: 12/25/17 00:51 Pt initally restrained due to his behavior and risk of fall. I am restrained patient at this time since he is cooperative. He is still intoxicated. He states he wants to . Initial 2013 was signed upon arrival. At this time I signed a 1013 and will require psychiatric consult. Patient will need repeat alcohol level for medical clearance to psychiatric facility. [facility] protocol will be placed to monitor for withdrawal symptoms 12/25/17 01:05 repeat Alcohol ordered for 5 am. Keppra 500 mg BID ordered. Dilantin and depakote level pending. - Consultations Consultation #1: 12/25/17 01:05 consult requested ED Medical Decision Making - Lab Data Result diagrams: 12/24/17 19:54 12/24/17 19:54 Lab Results 12/24/17 12/24/17 12/24/17 Range/Units 19:54 19:54 19:54 WBC 8.5 (4.5-11.0) K/mm3 RBC 4.75 (3.65-5.03) M/mm3 Hgb 14.4 (11.8-15.2) gm/dl Hct 42.8 (35.5-45.6) % MCV 90 (84-94) fl MCH 30 (28-32) pg MCHC 34 (32-34) % RDW 13.0 L (13.2-15.2) % Plt Count 277 (140-440) K/mm3 Lymph % (Auto) 44.7 H (13.4-35.0) % Bureau % (Auto) 7.5 H (0.0-7.3) % Eos % (Auto) 0.8 (0.0-4.3) % Baso % (Auto) 0.6 (0.0-1.8) % Lymph # 3.8 (1.2-5.4) K/mm3 Bureau # 0.6 (0.0-0.8) K/mm3 Eos # 0.1 (0.0-0.4) K/mm3 Baso # 0.1 (0.0-0.1) K/mm3 Seg Neutrophils % 46.4 (40.0-70.0) % Seg Neutrophils # 3.9 (1.8-7.7) K/mm3 Sodium 136 L (137-145) mmol/L Potassium 3.7 (3.6-5.0) mmol/L Chloride 97.5 L (98-107) mmol/L Carbon Dioxide 22 (22-30) mmol/L Anion Gap 20 mmol/L BUN 7 L (9-20) mg/dL Creatinine 0.8 (0.8-1.5) mg/dL Estimated GFR > 60 ml/min BUN/Creatinine Ratio 9 % Glucose 99 (75-100) mg/dL Calcium 8.0 L (8.4-10.2) mg/dL Magnesium (1.7-2.3) mg/dL Total Bilirubin 0.20 (0.1-1.2) mg/dL AST 19 (5-40) units/L ALT 15 (7-56) units/L Alkaline Phosphatase 57 (35-129) units/L Total Creatine Kinase 89 (55-170) units/L Total Protein 6.7 (6.3-8.2) g/dL Albumin 3.8 L (3.9-5) g/dL Albumin/Globulin Ratio 1.3 % Urine Color (Yellow) Urine Turbidity (Clear) Urine pH (5.0-7.0) Ur Specific [place] (1.003-1.030) Urine Protein (Negative) mg/dL Urine Glucose (UA) (Negative) mg/dL Urine Ketones (Negative) mg/dL Urine Blood (Negative) Urine Nitrite (Negative) Urine Bilirubin (Negative) Urine Urobilinogen (<2.0) mg/dL Ur Leukocyte Esterase (Negative) Urine WBC (Auto) (0.0-6.0) /HPF Urine RBC (Auto) (0.0-6.0) /HPF Urine Mucus /HPF Urine Opiates Screen Urine Methadone Screen Ur Barbiturates Screen Ur Phencyclidine Scrn Ur Amphetamines Screen U Benzodiazepines Scrn Urine Cocaine Screen U Marijuana (THC) Screen Drugs of Abuse Note Plasma/Serum Alcohol 0.34 H (0-0.07) % 12/24/17 12/24/17 12/24/17 Range/Units 19:54 21:00 21:00 WBC (4.5-11.0) K/mm3 RBC (3.65-5.03) M/mm3 Hgb (11.8-15.2) gm/dl Hct (35.5-45.6) % MCV (84-94) fl MCH (28-32) pg MCHC (32-34) % RDW (13.2-15.2) % Plt Count (140-440) K/mm3 Lymph % (Auto) (13.4-35.0) % Bureau % (Auto) (0.0-7.3) % Eos % (Auto) (0.0-4.3) % Baso % (Auto) (0.0-1.8) % Lymph # (1.2-5.4) K/mm3 Bureau # (0.0-0.8) K/mm3 Eos # (0.0-0.4) K/mm3 Baso # (0.0-0.1) K/mm3 Seg Neutrophils % (40.0-70.0) % Seg Neutrophils # (1.8-7.7) K/mm3 Sodium (137-145) mmol/L Potassium (3.6-5.0) mmol/L Chloride (98-107) mmol/L Carbon Dioxide (22-30) mmol/L Anion Gap mmol/L BUN (9-20) mg/dL Creatinine (0.8-1.5) mg/dL Estimated GFR ml/min BUN/Creatinine Ratio % Glucose (75-100) mg/dL Calcium (8.4-10.2) mg/dL Magnesium 2.00 (1.7-2.3) mg/dL Total Bilirubin (0.1-1.2) mg/dL AST (5-40) units/L ALT (7-56) units/L Alkaline Phosphatase (35-129) units/L Total Creatine Kinase (55-170) units/L Total Protein (6.3-8.2) g/dL Albumin (3.9-5) g/dL Albumin/Globulin Ratio % Urine Color Yellow (Yellow) Urine Turbidity Clear (Clear) Urine pH 5.0 (5.0-7.0) Ur Specific [place] 1.005 (1.003-1.030) Urine Protein <15 mg/dl (Negative) mg/dL Urine Glucose (UA) Neg (Negative) mg/dL Urine Ketones Neg (Negative) mg/dL Urine Blood Neg (Negative) Urine Nitrite Neg (Negative) Urine Bilirubin Neg (Negative) Urine Urobilinogen < 2.0 (<2.0) mg/dL Ur Leukocyte Esterase Neg (Negative) Urine WBC (Auto) < 1.0 (0.0-6.0) /HPF Urine RBC (Auto) 1.0 (0.0-6.0) /HPF Urine Mucus Few /HPF Urine Opiates Screen Presumptive negative Urine Methadone Screen Presumptive negative Ur Barbiturates Screen Presumptive negative Ur Phencyclidine Scrn Presumptive negative Ur Amphetamines Screen Presumptive negative U Benzodiazepines Scrn Presumptive negative Urine Cocaine Screen Presumptive negative U Marijuana (THC) Screen Presumptive negative Drugs of Abuse Note Disclamer Plasma/Serum Alcohol (0-0.07) % - Medical Decision Making alcohol intox 2013 initially ordered for acute intoxication, fall risk, and combative behavior repeat ordered for 5 am once less than .2 pt can be medially cleared [place] protocol initiated Suicidal 1013 signed Mental health consult requested Seizure history Previously on Depakote and Dilantin as per MAR Levels ordered/pending Patient will be covered with Keppra while here in the ED lashaun reviewed the next day Depakote and Dilantin neg therefore pt not likely taking alcohol decreased below .2 Pt is medically cleared - Differential Diagnosis alcohol intoxication, drug intoxication Critical Care Time: No Critical care attestation.: If time is entered above; I have spent that time in minutes in the direct care of this critically ill patient, excluding procedure time. ED Disposition Clinical Impression: Alcohol intoxication, Suicidal ideation, Medical clearance for psychiatric admission Disposition: [id number]/TX-[id number] PSY HOSP/PSY UNIT Is pt being admited?: No Does the pt Need Aspirin: No Condition: Stable Time of Disposition: 06:00
[2017-12-24 21:17] LABS: Bilirubin,Urine NEG (Negative); Color,Urine Yellow (Yellow)
[2017-12-24 21:18] LABS: Blood,Urine NEG (Negative); Mucus,Urine FEW /HPF; Protein,Urine <15 mg/dL mg/dL (Negative); Urobilinogen,Urine < 2.0 mg/dL (<2.0); WBC,Urine < 1.0 /HPF (0.0-6.0)
[2017-12-24 21:26] LABS: Amphetamine Screen,Urine PRESUMPTIVE NEGATIVE; Benzodiazepines Screen,Urine PRESUMPTIVE NEGATIVE; Cannabinoid Screen,Urine PRESUMPTIVE NEGATIVE; Cocaine Screen,Urine PRESUMPTIVE NEGATIVE; Methadone Screen,Urine PRESUMPTIVE NEGATIVE; Opiate Screen,Urine PRESUMPTIVE NEGATIVE
[2017-12-25] MEDS ORDERED: ATIVAN IV PRN (01:02)
[2017-12-25] MEDS ORDERED: ATIVAN PO PRN (01:02)
[2017-12-25] MEDS ORDERED: KEPPRA PO ONE (01:05)
[2017-12-25] MEDS: KEPPRA PO SCH ×2 (09:52→21:42)
[2017-12-25] MEDS ORDERED: ZOFRAN IV ONE (10:22)
[2017-12-25] MEDS: ATIVAN PO PRN ×2 (10:42→21:42)
--- NOTE | 2017-12-25 11:03 | Cat Scan Report ---
CT HEAD WITHOUT CONTRAST: HISTORY: Headache. TECHNIQUE: Sequential 2.5mm CT images. COMPARISON: 11/21/17. FINDINGS: Cerebral Parenchyma: Within normal limits. Cerebellum: Within normal limits. Brainstem: Within normal limits. Ventricles: Normal. Sella: Normal. Extra-axial spaces: Normal. Basal Cisterns: Normal. Intracranial Hemorrhage: None. Midline Shift: None. Calvarium: Normal. Sinuses: Mild mucosal thickening in small fluid in both maxillary sinuses has improved slightly since the comparison exam. Mastoid Air Cells: Normal. Visualized Orbits: Normal. IMPRESSION: Cranial CT scan within normal limits. Maxillary sinusitis, likely chronic. No significant change since 11/21/17.
[2017-12-26] MEDS: ATIVAN PO PRN (10:32)
[2017-12-26] MEDS: KEPPRA PO SCH ×2 (10:32→22:22)
--- NOTE | 2017-12-26 15:01 | Consultation ---
History of Present Illness - Reason for Consult Consult date: 12/26/17 Reason for consult: mental health consult Requesting physician: TALI CHRISTY - Chief Complaint Chief complaint: "I wish I wasn't here". - History of Present Psychiatric Illness 62-year-old male presented to the emergency room, with unsteady gait and acute intoxication and had to be put in physical restraints due to his agitation. He was belligerent at the time of presentation. Patient admitted daily alcohol use and tremors and other withdrawal symptoms including seizures in the past. Patient was started on CIWA protocol and also on Keppra for seizures. Today, patient stated that she was depressed and stated "I wish I wasn't here". Patient reportedly has been feeling depressed for many years and also has been having suicidal ideations. He did agree that he has in the past indulged in self-injurious behavior by cutting himself. He also stated that he might try to cut his wrist in an attempt to kill himself or slit his throat. Patient also reported high anxiety levels. His sleep is erratic and appetite has decreased. He denied any previous history of manic symptoms and also denied any auditory or visual hallucinations or other psychotic symptoms. Medications and Allergies Allergies Allergy/AdvReac Type Severity Reaction Status Date / Time Penicillins Allergy Unknown Verified 09/23/17 09:03 Home Medications Medication Instructions Recorded Confirmed Last Taken Type PHENobarbital 30 mg PO Q8H 06/30/14 10/24/17 Unknown History Phenytoin [Dilantin] 100 mg PO TID 06/30/14 10/24/17 Unknown History HYDROcodone/APAP 5-325 [[place] 1 each PO Q6HR PRN #20 tablet 10/23/14 10/24/17 Unknown Rx 5-325 mg TAB] Acetaminophen/Codeine [Tylenol #3] 1 tab PO Q8H PRN #12 tablet 05/15/15 Unknown Rx Ibuprofen [Motrin 800 MG tab] 800 mg PO Q8HR PRN #21 tablet 05/15/15 10/24/17 Unknown Rx Active Meds: Active Medications Levetiracetam (Keppra) 500 mg PO BID FLORENCIO Last Admin: 12/26/17 10:32 Dose: 500 mg Lorazepam (Ativan) 2 mg PO Q1HR PRN PRN Reason: CIWA-Ar - Last Admin: 12/26/17 10:32 Dose: 2 mg Lorazepam (Ativan) 4 mg PO Q1HR PRN PRN Reason: CIWA-Ar 16-25 Lorazepam (Ativan) 4 mg IV Q15MIN PRN PRN Reason: CIWA-Ar >25 Past psychiatric history - Past Medical History Past Medical History: other (back pain) - past Psychiatric treatment and history Psych: Anxiety, Addictions (alcohol), Depression - Social History Social history: other (homeless, and not much family support.) Mental Status Exam - Vital signs Last Vital Signs Temp 98.6 F 12/26/17 13:00 Pulse 85 12/26/17 13:00 Resp 18 12/26/17 13:00 BP 160/80 12/26/17 13:00 Pulse Ox 99 12/26/17 13:00 - Exam Orientation: time, place, person Affect: depressed, anxious Mood: hopeless, congruent with affect, sad, anxious Thought Process: Intact Perceptions: none Speech: slow Concentration: distractible Motor activity: normal Level of consciousness: alert Memory: Intact Sleep Symptoms: Difficulty Falling Asleep Appetite: decreased Interaction: defensive, other Results Result Diagrams: 12/24/17 19:54 12/24/17 19:54 All other labs normal. Assessment and Plan Assessment and plan: Assessment: Major depressive disorder, recurrent, severe Anxiety disorder unspecified Alcohol use disorder, severe, and withdrawals Plan: 1) continue the patient on 1013, and he needs to be placed in a psychiatric inpatient hospital. 2) continue CIWA protocol to help with alcohol withdrawal symptoms. 3) will start on Prozac 20 mg at bedtime to help with depressed mood and anxiety.
[2017-12-26] MEDS: PROzac PO SCH (22:22)
[2017-12-27] MEDS: KEPPRA PO SCH ×2 (11:22→22:00)
[2017-12-27] MEDS: PROzac PO SCH (22:00)
[2017-12-28] MEDS: KEPPRA PO SCH ×2 (10:37→22:28)
--- NOTE | 2017-12-28 17:17 | Progress Note ---
Subjective - Reason for Consult Consult date: 12/28/17 Reason for consult: Psychiatric Follow-up Evaluation - Chief Complaint Chief complaint: " Not too good." Daniel 62-year-old male presented to the emergency room, with unsteady gait and acute intoxication. Today, he states " I need to get into an alcohol program. My alcohol abuse triggers my depression." Patient expresses that he is interested in [facility] for buttermaker helper treatment. Patient has been placed on CIWA protocol. He reports medication compliance. He denies any side effects. Mental Status Exam - Vital signs Last Vital Signs Temp 97.9 F 12/28/17 12:13 Pulse 58 L 12/28/17 12:13 Resp 18 12/28/17 12:13 BP 100/55 12/28/17 12:13 Pulse Ox 95 12/28/17 12:13 - Exam Narrative exam: Mental Status Exam General Appearance: Disheveled, poorly groomed Eye Contact: Intermittent Orientation: Alert and oriented x 3 ( person, place, and situation) Attitude/Behavior: Cooperative Sensorium: Clear Psychomotor & Musculoskeletal Activity: WNL Mood: "Not good." ; Depressed, anxious Affect: Appropriate Speech/Language: Normal rate and tone Thought Processes: Circumstantial Thought Content: Organized Perception: Patient denies Concentration/Attention: Intact Suicidal Ideation/Plan: Patient denies Homicidal Ideation/Plan: Patient denies Assessment and Plan Impression: Daniel is a 62 year old male who presents to the emergency room, with unsteady gait and acute intoxication. Today, patient presents depressed and anxious. Withdrawal symptoms are being controlled per CIWA protocol. Patient reports medication compliance. He denies side effects. Patient interested in buttermaker helper treatment. DDx: Major depressive disorder, recurrent, severe, Anxiety disorder unspecified , Alcohol use disorder, severe, and withdrawals Plan: 1. Continue 1013 and reassess on 12/29/17. 2. Continue CIWA protocol to help with alcohol withdrawal symptoms. 3. Continue Prozac 20 mg at bedtime to help with depressed mood and anxiety.
[2017-12-28] MEDS: PROzac PO SCH (22:28)
[2017-12-29] MEDS ORDERED: MILK OF MAGNESIA PO PRN (09:15)
[2017-12-29] MEDS ORDERED: ALUM-MAG HYDROX-SIMETH 200-200-20MG/5ML PO PRN (09:15)
[2017-12-29] MEDS: TYLENOL PO PRN ×2 (09:24→18:23)
[2017-12-29] MEDS: KEPPRA PO SCH ×2 (10:12→21:30)
[2017-12-29] MEDS: PROzac PO SCH (21:30)
--- NOTE | 2017-12-30 11:13 | Progress Note ---
Subjective - Reason for Consult Consult date: 12/30/17 Reason for consult: Psychiatry Follow-up - Chief Complaint Chief complaint: "I need to stop drinking" 62-year-old male presented to the emergency room, with unsteady gait and acute intoxication and had to be put in physical restraints due to his agitation. He was belligerent at the time of presentation. This patient is known to me. Today the patient is calm and cooperative during the assessment. He stated that he want to stop drinking so his life can be "better." He stated that drinking has caused him lots of "mental pain" in the past. He denies SI/HI's and AVH's. He denies any side effects of his medication. Mental Status Exam - Vital signs Last Vital Signs Temp 98.6 F 12/30/17 10:38 Pulse 69 12/30/17 10:38 Resp 16 12/30/17 10:38 BP 113/79 12/30/17 10:38 Pulse Ox 100 12/30/17 10:38 - Exam Narrative exam: MSE: Appearance: calm, cooperative Behavior: regular eye contact Speech: regular rate and tone Mood: "okay" Affect: congruent to mood Thought Process: circumstantial Thought Content: denies SI/HI's and AVH's Motor Activity: sitting up in bed Cognition: A/O x 3 Insight: fair Judgment: fair Assessment and Plan Impression: MDD, recurrent, severe. AVANI. Alcohol Use DO. Alcohol Intoxication on admission. Today the patient is calm and cooperative during the assessment. No withdrawals noted (etoh). DDx: R/O Bipolar DO, R/O Alcohol induced Mood DO Recommendation/Plan: Evaluate 1013 in 24 hours to determine proper dispo. Continue Prozac 20 mg PO HS for depression/anxiety. Discussed possible suicidality/medication induced adithya with patient reference Prozac.
[2017-12-30] MEDS: KEPPRA PO SCH ×2 (11:33→22:02)
[2017-12-30] MEDS: TYLENOL PO PRN (12:51)
[2017-12-30] MEDS: PROzac PO SCH (22:03)
[2017-12-31 08:28] VITALS: BP 111/70
[2017-12-31] MEDS: TYLENOL PO PRN (08:50)
[2017-12-31] MEDS: KEPPRA PO SCH (10:08)
--- NOTE | 2017-12-31 10:55 | Progress Note ---
Subjective - Reason for Consult Consult date: 12/31/17 Reason for consult: Psychiatry Follow-up - Chief Complaint Chief complaint: "I will do better" 62-year-old male presented to the emergency room, with unsteady gait and acute intoxication and had to be put in physical restraints due to his agitation. He was belligerent at the time of presentation. This patient is known to me. Today the patient is calm and cooperative during the assessment. He stated that he will use resources at [facility] for outpatient psy/rehab services. He stated that a priority in his life is staying sober. He denies SI/HI's and AVH' s. He denies any side effects of his medication. Mental Status Exam - Vital signs Last Vital Signs Temp 98 F 12/30/17 20:29 Pulse 69 12/31/17 08:27 Resp 17 12/31/17 08:27 BP 111/70 12/31/17 08:27 Pulse Ox 96 12/31/17 08:27 - Exam Narrative exam: MSE: Appearance: calm, cooperative Behavior: regular eye contact Speech: regular rate and tone Mood: "okay" Affect: congruent to mood Thought Process: logical Thought Content: denies SI/HI's and AVH's Motor Activity: sitting up in bed Cognition: A/O x 3 Insight: appropriate Judgment: appropriate Assessment and Plan Impression: MDD, recurrent, severe. AVANI. Alcohol Use DO. Alcohol Intoxication on admission. Today the patient is calm and cooperative during the assessment. No withdrawals noted (etoh). The patient is no threat to self. DDx: R/O Bipolar DO, R/O Alcohol induced Mood DO Recommendation/Plan: Rescind 1013. Continue Prozac 20 mg PO HS for depression/ anxiety. Discussed possible suicidality/medication induced adithya with patient reference Prozac. Discussed the importance to abstain from alcohol consumption ( etoh). Discussed generalized coping skills.
[2017-12-31] MEDS ORDERED: HABITROL TD ONE (11:01)
== END 2017-12-31 14:30 ==
LOC: ED 19:07 → EEVIPCON 19:07 → ED 12-31 14:30
DX: F10.129 Alcohol abuse with intoxication, unspecified (principal); M54.9 Dorsalgia, unspecified; G89.29 Other chronic pain; R45.851 Suicidal ideations; F17.200 Nicotine dependence, unspecified, uncomplicated; J44.9 Chronic obstructive pulmonary disease, unspecified; Z88.0 Allergy status to penicillin
CPT/HCPCS: 36415; 70450; 80053; 80184; 80185; 80307; 81001; 82550; 83735; 85025; 96374; 99285; G0480; J2405; 80320

== ENCOUNTER 2017-12-31 23:10 | Emergency (ER) | payer SELFPAY ==
[2018-01-01 00:15] LABS: Basophils # (Auto) 0.1 K/mm3 (0.0-0.1); Basophils % (Auto) 0.7 % (0.0-1.8); Eosinophils % (Auto) 0.3 % (0.0-4.3); Hematocrit 45.2 % (35.5-45.6); Hemoglobin 15.1 gm/dl (11.8-15.2); Lymphocytes # (Auto) 2.8 K/mm3 (1.2-5.4); Lymphocytes % (Auto) 29.7 % (13.4-35.0); Mean Corpuscular HGB Conc 33 % (32-34); Mean Corpuscular Hemoglobin 30 pg (28-32); Mean Corpuscular Volume 89 fl (84-94); Monocytes # (Auto) 0.7 K/mm3 (0.0-0.8); Monocytes % (Auto) 7.4 % (0.0-7.3); Platelet Count 215 K/mm3 (140-440); Red Blood Count 5.05 M/mm3 (3.65-5.03); Red Cell Distribution Width 13.1 % (13.2-15.2)
--- NOTE | 2018-01-01 00:24 | Emergency Department Report ---
HPI - General Chief Complaint: Psych Time Seen by Provider: 01/01/18 00:17 - HPI HPI: The patient is a 62-year-old male who presents for evaluation of mental health. The patient presented via EMS after being female with agitation and inebriated. The patient complains of mild achy lower back pain for the past one day, exacerbated with movement, consistent with previous episodes of back pain. The patient denies blunt trauma to the back, fall, fever, chills, night sweats, saddle anesthesia, paresthesias, numbness or tingling in the legs, leg weakness, urine or bowel incontinence or retention, difficulty ambulating, or other focal neurological deficits, headache, neuro deficits, homicidal ideations , suicidal ideations, or auditory or visual hallucinations. ED Past Medical Hx - Past Medical History Previous Medical History?: Yes Hx Heart Attack/AMI: No Hx Congestive Heart Failure: No Hx Diabetes: No Hx Deep Vein Thrombosis: No Hx Pulmonary Embolism: No Hx GERD: No Hx Liver Disease: No Hx Renal Disease: No Hx Sickle Cell Disease: No Hx Arthritis: No Hx Headaches / Migraines: No Hx Seizures: Yes Hx Kidney Stones: No Hx Psychiatric Treatment: Yes (states "I can't remember" to most questions) Hx Asthma: Yes Hx COPD: Yes Hx Tuberculosis: No Hx Dementia: No Hx HIV: No Additional medical history: Hep B, Bronchitis and chronic back pain - Surgical History Past Surgical History?: No Hx Coronary Stent: No Hx Open Heart Surgery: No Hx Pacemaker: No Hx Internal Defibrillator: No Hx Cholecystectomy: No Hx Appendectomy: No Hx Breast Surgery: No - Social History Smoking Status: Current Every Day Smoker Substance Use Type: Alcohol - Medications Home Medications: Home Medications Medication Instructions Recorded Confirmed Last Taken Type PHENobarbital 30 mg PO Q8H 06/30/14 12/28/17 Unknown History Phenytoin [Dilantin] 100 mg PO TID 06/30/14 12/28/17 Unknown History HYDROcodone/APAP 5-325 [[place] 1 each PO Q6HR PRN #20 tablet 10/23/14 12/28/17 Unknown Rx 5-325 mg TAB] Acetaminophen/Codeine [Tylenol #3] 1 tab PO Q8H PRN #12 tablet 05/15/15 Unknown Rx Ibuprofen [Motrin 800 MG tab] 800 mg PO Q8HR PRN #21 tablet 05/15/15 12/28/17 Unknown Rx ED Review of Systems ROS: Stated complaint: MH Other details as noted in HPI Constitutional: denies: fever ENT: denies: throat or neck pain Respiratory: denies: cough, shortness of breath Cardiovascular: denies: chest pain Endocrine: denies unexplained weight loss or gain Gastrointestinal: denies: abdominal pain, nausea Genitourinary: denies: dysuria Musculoskeletal: reports back pain denies: leg swelling Skin: denies: rash Neurological: denies: headache Hematological/Lymphatic: denies: easy bleeding or easy bruising Psych: denies sadness or hopelessness Physical Exam - Physical Exam Vital Signs: Vital Signs 12/31/17 23:28 Temperature 98 F Pulse Rate 69 Respiratory 18 Rate Blood Pressure 155/104 O2 Sat by Pulse 94 Oximetry Physical Exam: General: well-nourished, well-developed, no acute distress Head: Normocephalic, atraumatic Eyes: normal sclera ENT: Mucous membranes are pale and dry Neck: No neck stiffness, no cervical adenopathy Respiratory: Breath sounds equal bilaterally, no wheezing, rales, or rhonchi Cardio: S1 and S2 present, no murmurs, rubs, gallops, capillary refill is delayed Abdomen: Normoactive bowel sounds, soft abdomen, no rigidity, no guarding or rebound tenderness Chest WALL/Back: No tenderness to palpation of the chest wall, no CVA tenderness with percussion Musc: Tenderness to palpation present to bilateral lumbar paraspinal musculature , normal active range of motion at the hip intact, no spinous step-off or obvious deformity, ipsi-lateral and contralateral straight leg raise tests are negative. On extremity testing, compartments are soft and pliable, no obvious gross motor strength deficit, 5+ motor strength, including extension of the great toe bilaterally, no muscular atrophy, spasticity, fasciculations, or clonus, no obvious gross sensation deficit including web space between 1st and 2nd toes, reflexes 2+ & symmetric on DTR testing at the knee and ankle joints, distal pulses intact. Skin: No rash Neuro: Alert, no facial drooping, mildly slurred speech, no sensation are gross motor deficits, reflexes are 2+/on DTR testing Psych: Normal affect, patient incoherent and inebriated, mildly agitated, unable to follow instructions, no suicidal or homicidal ideations, no hallucinations ED Course Vital Signs 12/31/17 23:28 Temperature 98 F Pulse Rate 69 Respiratory 18 Rate Blood Pressure 155/104 O2 Sat by Pulse 94 Oximetry ED Medical Decision Making - Lab Data Result diagrams: 01/01/18 00:01 01/01/18 00:01 - Medical Decision Making The patient was seen and examined by myself. The patient is placed on a library monitor and continuous pulse ox. On initial evaluation, the patient was found to be in no distress. Labs are obtained. The patient was given medicine for his back pain. No findings on exam concerning for cauda equina syndrome, spinal stenosis, or epidural abscess. As the patient has no midline tenderness on exam, no neuro deficits, and no findings concerning for emergent etiology of their back pain, imaging will not be obtained at this time. The patient is given pain medicine. Lab results revealed elevated EtOH level 0.26, and otherwise labs are grossly unremarkable. The patient is medically clear. Mental health is consulted. Mental health evaluates the patient and agreed that the patient was negative for findings concerning for acute psychosis or risk of harm to himself or others. Once the patient is alone intoxicated he will be reevaluated in the am, potentially by psychiatry. The patient is signed out to the oncoming morning shift physician Dr. Macedo, whom agrees to reevaluate the patient once sober and to arrange ultimate disposition Critical care attestation.: If time is entered above; I have spent that time in minutes in the direct care of this critically ill patient, excluding procedure time. ED Disposition Clinical Impression: Acute bilateral low back pain without sciatica, Dehydration, mild Alcohol intoxication Qualifiers: Complication of substance-induced condition: uncomplicated Qualified Code(s): F10.920 - Alcohol use, unspecified with intoxication, uncomplicated Disposition: DC/TX-65 PSY HOSP/PSY UNIT Is pt being admited?: No Does the pt Need Aspirin: No Condition: Stable Time of Disposition: 05:36
[2018-01-01 00:28] LABS: BUN/Creatinine Ratio 23; Blood Urea Nitrogen 16 mg/dL (9-20); Calcium 8.3 mg/dL (8.4-10.2); Hemolysis Index 1
[2018-01-01] MEDS ORDERED: TYLENOL PO ONE ×3 (01:31→10:00)
[2018-01-01] MEDS ORDERED: TORADOL IM ONE (01:32)
[2018-01-01 01:34] LABS: Bilirubin,Urine NEG (Negative); Blood,Urine NEG (Negative); Color,Urine Straw (Yellow); Mucus,Urine FEW /HPF; Protein,Urine <15 mg/dL mg/dL (Negative); RBC,Urine < 1.0 /HPF (0.0-6.0); Urobilinogen,Urine < 2.0 mg/dL (<2.0)
[2018-01-01 01:41] LABS: WBC,Urine < 1.0 /HPF (0.0-6.0)
[2018-01-01 01:43] LABS: Amphetamine Screen,Urine PRESUMPTIVE NEGATIVE; Benzodiazepines Screen,Urine PRESUMPTIVE NEGATIVE; Cannabinoid Screen,Urine PRESUMPTIVE NEGATIVE; Cocaine Screen,Urine PRESUMPTIVE NEGATIVE; Methadone Screen,Urine PRESUMPTIVE NEGATIVE; Opiate Screen,Urine PRESUMPTIVE NEGATIVE
[2018-01-01 10:06] VITALS: BP 107/68
== END 2018-01-01 10:40 ==
LOC: ED 23:10
DX: M54.5 Low back pain (principal); E86.0 Dehydration; F10.120 Alcohol abuse with intoxication, uncomplicated; F17.200 Nicotine dependence, unspecified, uncomplicated
CPT/HCPCS: 36415; 80048; 80307; 81001; 85025; 96372; 99285; G0480; J1885; 80320

== ENCOUNTER 2018-01-01 10:44 | Emergency (ER) | payer SELFPAY | END 2018-01-01 11:30 | disposition left against medical advice (07) | LOC: ED 10:44 | DX: Z00.8 Encounter for other general examination (principal); Z53.21 Procedure and treatment not carried out due to patient leaving prior to being seen by health care provider ==

== ENCOUNTER 2019-08-07 14:02 | Emergency (ER) | payer SELFPAY ==
[2019-08-07 16:01] VITALS: BP 152/102
--- NOTE | 2019-08-07 16:38 | Event Note ---
ED Screening Note Date of service: 08/07/19 Time: 16:34 ED Screening Note: 63 y o male with ETOH abuse presents for detox pmh: emphysema This initial assessment/diagnostic orders/clinical plan/treatment(s) is/are subject to change based on patients health status, clinical progression and re-assessment by fellow clinical providers in the ED. Further treatment and workup at subsequent clinical providers discretion. Patient/guardian urged not to elope from the ED as their condition may be serious if not clinically assessed and managed. Initial orders include: labs, UDS main side
[2019-08-07 18:51] LABS: Basophils # (Auto) 0.1 K/mm3 (0.0-0.1); Basophils % (Auto) 1.1 % (0.0-1.8); Eosinophils # (Auto) 0.2 K/mm3 (0.0-0.4); Eosinophils % (Auto) 1.9 % (0.0-4.3); Hematocrit 43.3 % (35.5-45.6); Hemoglobin 14.8 gm/dl (11.8-15.2); Lymphocytes # (Auto) 2.7 K/mm3 (1.2-5.4); Mean Corpuscular HGB Conc 34 % (32-34); Mean Corpuscular Volume 91 fl (84-94); Monocytes # (Auto) 1.1 K/mm3 (0.0-0.8); Monocytes % (Auto) 11.5 % (0.0-7.3); Platelet Count 269 K/mm3 (140-440); Red Blood Count 4.78 M/mm3 (3.65-5.03); Red Cell Distribution Width 12.8 % (13.2-15.2)
[2019-08-07 19:05] LABS: Alanine Aminotransferase 22 units/L (7-56); Albumin 4.1 g/dL (3.9-5); BUN/Creatinine Ratio 8; Blood Urea Nitrogen 8 mg/dL (9-20); Calcium 9.1 mg/dL (8.4-10.2); Hemolysis Index 24
== END 2019-08-07 20:45 | disposition left against medical advice (07) ==
LOC: ED 14:02
DX: F10.10 Alcohol abuse, uncomplicated (principal); Z53.21 Procedure and treatment not carried out due to patient leaving prior to being seen by health care provider
CPT/HCPCS: 36415; 80053; 80320; 85025; G0480

== ENCOUNTER 2019-08-08 02:08 | Emergency (ER) | payer SELFPAY ==
--- NOTE | 2019-08-08 08:17 | Emergency Department Report ---
ED General Adult HPI - General Chief complaint: Psych Stated complaint: REHALB/DRUGS/ALCOHOL Time Seen by Provider: 08/08/19 08:01 Source: patient Mode of arrival: Ambulatory Limitations: No Limitations - History of Present Illness Initial comments: Patient is a 63-year-old male presents emergency room with complaints of wanting drug rehabilitation. Patient reports that he "smokes ice" and last used yesterday. He states that he also drinks alcohol daily and last drank 2 days ago. He denies any other drug use. He endorses tobacco use. Patient states that he also has suicidal ideations. He states that his plan is to run in front of a truck. He states he has attempted to harm himself in the past by cutting himself. He denies any homicidal ideations. He states that he is having visual hallucinations and states he is seeing people following him. He states he has been in a psychiatric facility but it has been a long time. Patient states that the past medical history of COPD and hepatitis B. He states he has an allergy to penicillin. Severity scale (0 -10): 0 - Related Data Home Medications Medication Instructions Recorded Confirmed Last Taken PHENobarbitaL [PHENobarbital] 30 mg PO Q8H 06/30/14 08/08/19 Unknown Phenytoin [Dilantin] 100 mg PO TID 06/30/14 08/08/19 Unknown Allergies Allergy/AdvReac Type Severity Reaction Status Date / Time Penicillins Allergy Anaphylaxis Verified 08/08/19 02:20 ED Review of Systems ROS: Stated complaint: REHALB/DRUGS/ALCOHOL Other details as noted in HPI Comment: All other systems reviewed and negative ED Past Medical Hx - Past Medical History Previous Medical History?: Yes Hx CVA: No Hx Heart Attack/AMI: No Hx Congestive Heart Failure: No Hx Diabetes: No Hx Deep Vein Thrombosis: No Hx Pulmonary Embolism: No Hx GERD: No Hx Liver Disease: No Hx Renal Disease: No Hx Sickle Cell Disease: No Hx Arthritis: No Hx Headaches / Migraines: No Hx Seizures: Yes Hx Kidney Stones: No Hx Psychiatric Treatment: Yes (states "I can't remember" to most questions) Hx Asthma: Yes Hx COPD: Yes Hx Tuberculosis: No Hx Dementia: No Hx HIV: No Additional medical history: Hep B, Bronchitis and chronic back pain - Surgical History Past Surgical History?: No Hx Coronary Stent: No Hx Open Heart Surgery: No Hx Pacemaker: No Hx Internal Defibrillator: No Hx Cholecystectomy: No Hx Appendectomy: No Hx Breast Surgery: No - Social History Smoking Status: Current Every Day Smoker Substance Use Type: Alcohol - Medications Home Medications: Home Medications Medication Instructions Recorded Confirmed Last Taken Type PHENobarbitaL [PHENobarbital] 30 mg PO Q8H 06/30/14 08/08/19 Unknown History Phenytoin [Dilantin] 100 mg PO TID 06/30/14 08/08/19 Unknown History ED Physical Exam - General Limitations: No Limitations General appearance: alert, in no apparent distress - Head Head exam: Present: atraumatic, normocephalic - Eye Eye exam: Present: normal appearance - ENT ENT exam: Present: mucous membranes moist - Respiratory Respiratory exam: Present: normal lung sounds bilaterally. Absent: respiratory distress, wheezes, rales, rhonchi, stridor, chest wall tenderness, accessory muscle use, decreased breath sounds, prolonged expiratory - Cardiovascular Cardiovascular Exam: Present: regular rate, normal rhythm, normal heart sounds. Absent: systolic murmur, diastolic murmur, rubs, gallop - Neurological Exam Neurological exam: Present: alert, oriented X3 - Psychiatric Psychiatric exam: Present: suicidal ideation - Skin Skin exam: Present: warm, dry, intact ED Course Vital Signs 08/08/19 08/08/19 08/08/19 07:22 08:29 14:30 Temperature 97.9 F 98.5 F Pulse Rate 82 87 Respiratory 16 20 18 Rate Blood Pressure 126/78 110/81 [Right] O2 Sat by Pulse 98 97 95 Oximetry 08/08/19 08/09/19 08/09/19 19:12 01:00 07:00 Temperature 98.3 F 97.9 F 97.9 F Pulse Rate 90 83 94 H Respiratory 16 16 18 Rate Blood Pressure 101/67 138/87 108/83 [Right] O2 Sat by Pulse 96 100 95 Oximetry 08/09/19 08/09/19 08/09/19 13:41 19:10 20:49 Temperature 97.3 F L 98.6 F Pulse Rate 85 94 H Respiratory 18 18 Rate Blood Pressure 118/89 119/83 [Right] O2 Sat by Pulse 92 100 100 Oximetry 08/10/19 08/10/19 02:00 08:31 Temperature 97.8 F 97.8 F Pulse Rate 62 69 Respiratory 18 Rate Blood Pressure 101/59 125/85 [Right] O2 Sat by Pulse 100 95 Oximetry ED Medical Decision Making - Lab Data Result diagrams: 08/08/19 08:20 08/08/19 08:20 Lab Results 08/08/19 08/08/19 08/08/19 Range/Units 08:20 08:20 08:20 WBC 7.8 (4.5-11.0) K/mm3 RBC 4.80 (3.65-5.03) M/mm3 Hgb 14.8 (11.8-15.2) gm/dl Hct 42.7 (35.5-45.6) % MCV 89 (84-94) fl MCH 31 (28-32) pg MCHC 35 H (32-34) % RDW 12.9 L (13.2-15.2) % Plt Count 286 (140-440) K/mm3 Lymph % (Auto) 22.5 (13.4-35.0) % [place] % (Auto) 12.2 H (0.0-7.3) % Eos % (Auto) 3.9 (0.0-4.3) % Baso % (Auto) [employer] Lymph # 1.7 (1.2-5.4) K/mm3 [place] # 0.9 H (0.0-0.8) K/mm3 Eos # 0.3 (0.0-0.4) K/mm3 Baso # 0.1 (0.0-0.1) K/mm3 Seg Neutrophils % 60.0 (40.0-70.0) % Seg Neutrophils # 4.7 (1.8-7.7) K/mm3 Sodium 138 (137-145) mmol/L Potassium 3.9 (3.6-5.0) mmol/L Chloride 99.6 (98-107) mmol/L Carbon Dioxide 26 (22-30) mmol/L Anion Gap 16 mmol/L BUN 17 (9-20) mg/dL Creatinine 0.9 (0.8-1.5) mg/dL Estimated GFR > 60 ml/min BUN/Creatinine Ratio 19 % Glucose 97 (75-100) mg/dL Calcium 9.0 (8.4-10.2) mg/dL Total Bilirubin 0.40 (0.1-1.2) mg/dL AST 20 (5-40) units/L ALT 20 (7-56) units/L Alkaline Phosphatase 66 (35-129) units/L Total Creatine Kinase 226 H (55-170) units/L Total Protein 6.9 (6.3-8.2) g/dL Albumin 4.0 (3.9-5) g/dL Albumin/Globulin Ratio 1.4 % Urine Color (Yellow) Urine Turbidity (Clear) Urine pH (5.0-7.0) Ur Specific [place] (1.003-1.030) Urine Protein (Negative) mg/dL Urine Glucose (UA) (Negative) mg/dL Urine Ketones (Negative) mg/dL Urine Blood (Negative) Urine Nitrite (Negative) Urine Bilirubin (Negative) Urine Urobilinogen (<2.0) mg/dL Ur Leukocyte Esterase (Negative) Urine WBC (Auto) (0.0-6.0) /HPF Urine RBC (Auto) (0.0-6.0) /HPF Salicylates < 0.3 L (2.8-20.0) mg/dL Urine Opiates Screen Urine Methadone Screen Acetaminophen (10.0-30.0) ug/mL Ur Barbiturates Screen Ur Phencyclidine Scrn Ur Amphetamines Screen U Benzodiazepines Scrn Urine Cocaine Screen U Marijuana (THC) Screen Drugs of Abuse Note Plasma/Serum Alcohol (0-0.07) % 08/08/19 08/08/19 08/08/19 Range/Units 08:20 08:20 11:45 WBC (4.5-11.0) K/mm3 RBC (3.65-5.03) M/mm3 Hgb (11.8-15.2) gm/dl Hct (35.5-45.6) % MCV (84-94) fl MCH (28-32) pg MCHC (32-34) % RDW (13.2-15.2) % Plt Count (140-440) K/mm3 Lymph % (Auto) (13.4-35.0) % [place] % (Auto) (0.0-7.3) % Eos % (Auto) (0.0-4.3) % Baso % (Auto) Lymph # (1.2-5.4) K/mm3 [place] # (0.0-0.8) K/mm3 Eos # (0.0-0.4) K/mm3 Baso # (0.0-0.1) K/mm3 Seg Neutrophils % (40.0-70.0) % Seg Neutrophils # (1.8-7.7) K/mm3 Sodium (137-145) mmol/L Potassium (3.6-5.0) mmol/L Chloride (98-107) mmol/L Carbon Dioxide (22-30) mmol/L Anion Gap mmol/L BUN (9-20) mg/dL Creatinine (0.8-1.5) mg/dL Estimated GFR ml/min BUN/Creatinine Ratio % Glucose (75-100) mg/dL Calcium (8.4-10.2) mg/dL Total Bilirubin (0.1-1.2) mg/dL AST (5-40) units/L ALT (7-56) units/L Alkaline Phosphatase (35-129) units/L Total Creatine Kinase (55-170) units/L Total Protein (6.3-8.2) g/dL Albumin (3.9-5) g/dL Albumin/Globulin Ratio % Urine Color Yellow (Yellow) Urine Turbidity Clear (Clear) Urine pH 6.0 (5.0-7.0) Ur Specific [place] 1.008 (1.003-1.030) Urine Protein <15 mg/dl (Negative) mg/dL Urine Glucose (UA) Neg (Negative) mg/dL Urine Ketones Neg (Negative) mg/dL Urine Blood Neg (Negative) Urine Nitrite Neg (Negative) Urine Bilirubin Neg (Negative) Urine Urobilinogen 2.0 (<2.0) mg/dL Ur Leukocyte Esterase Neg (Negative) Urine WBC (Auto) 1.0 (0.0-6.0) /HPF Urine RBC (Auto) 1.0 (0.0-6.0) /HPF Salicylates (2.8-20.0) mg/dL Urine Opiates Screen Urine Methadone Screen Acetaminophen < 5.0 L (10.0-30.0) ug/mL Ur Barbiturates Screen Ur Phencyclidine Scrn Ur Amphetamines Screen U Benzodiazepines Scrn Urine Cocaine Screen U Marijuana (THC) Screen Drugs of Abuse Note Plasma/Serum Alcohol < 0.01 (0-0.07) % 08/08/19 Range/Units 11:45 WBC (4.5-11.0) K/mm3 RBC (3.65-5.03) M/mm3 Hgb (11.8-15.2) gm/dl Hct (35.5-45.6) % MCV (84-94) fl MCH (28-32) pg MCHC (32-34) % RDW (13.2-15.2) % Plt Count (140-440) K/mm3 Lymph % (Auto) (13.4-35.0) % [place] % (Auto) (0.0-7.3) % Eos % (Auto) (0.0-4.3) % Baso % (Auto) Lymph # (1.2-5.4) K/mm3 [place] # (0.0-0.8) K/mm3 Eos # (0.0-0.4) K/mm3 Baso # (0.0-0.1) K/mm3 Seg Neutrophils % (40.0-70.0) % Seg Neutrophils # (1.8-7.7) K/mm3 Sodium (137-145) mmol/L Potassium (3.6-5.0) mmol/L Chloride (98-107) mmol/L Carbon Dioxide (22-30) mmol/L Anion Gap mmol/L BUN (9-20) mg/dL Creatinine (0.8-1.5) mg/dL Estimated GFR ml/min BUN/Creatinine Ratio % Glucose (75-100) mg/dL Calcium (8.4-10.2) mg/dL Total Bilirubin (0.1-1.2) mg/dL AST (5-40) units/L ALT (7-56) units/L Alkaline Phosphatase (35-129) units/L Total Creatine Kinase (55-170) units/L Total Protein (6.3-8.2) g/dL Albumin (3.9-5) g/dL Albumin/Globulin Ratio % Urine Color (Yellow) Urine Turbidity (Clear) Urine pH (5.0-7.0) Ur Specific [place] (1.003-1.030) Urine Protein (Negative) mg/dL Urine Glucose (UA) (Negative) mg/dL Urine Ketones (Negative) mg/dL Urine Blood (Negative) Urine Nitrite (Negative) Urine Bilirubin (Negative) Urine Urobilinogen (<2.0) mg/dL Ur Leukocyte Esterase (Negative) Urine WBC (Auto) (0.0-6.0) /HPF Urine RBC (Auto) (0.0-6.0) /HPF Salicylates (2.8-20.0) mg/dL Urine Opiates Screen Presumptive negative Urine Methadone Screen Presumptive negative Acetaminophen (10.0-30.0) ug/mL Ur Barbiturates Screen Presumptive negative Ur Phencyclidine Scrn Presumptive negative Ur Amphetamines Screen Presumptive positive U Benzodiazepines Scrn Presumptive negative Urine Cocaine Screen Presumptive negative U Marijuana (THC) Screen Presumptive negative Drugs of Abuse Note Disclamer Plasma/Serum Alcohol (0-0.07) % - EKG Data EKG shows normal: sinus rhythm, axis, intervals Rate: normal - EKG Data 08/08/19 11:03 LVH PAC no STEMI per Dr. Wetzel - Medical Decision Making Patient is a 63-year-old male presents emergency room with complaints of wanting drug rehabilitation. Patient reports that he "smokes ice" and last used yesterday. He states that he also drinks alcohol daily and last drank 2 days ago. He denies any other drug use. He endorses tobacco use. Patient states that he also has suicidal ideations. He states that his plan is to run in front of a truck. He states he has attempted to harm himself in the past by cutting himself. He denies any homicidal ideations. He states that he is having visual hallucinations and states he is seeing people following him. He states he has been in a psychiatric facility but it has been a long time. Patient states that the past medical history of COPD and hepatitis B. He states he has an allergy to penicillin. vitals are normal. 1013 signed due to SI with plan and hallucinations. screening labratory tests were obtained. labs are stable. UA is normal. UDS is positive for amphetamines. blood alcohol is negative. tylenol and salicylate levels are normal. EKG shows LVH, no STEMI. 08/08/19 1:28 PM at this time pt does not have an emergent medical condition preventing psychiatric evaluation and transfer to psych facility vs detox as deemed appropriate by mental health personnel. Critical care attestation.: If time is entered above; I have spent that time in minutes in the direct care of this critically ill patient, excluding procedure time. ED Disposition Clinical Impression: Suicidal thoughts, Alcohol abuse Disposition: DC-01 TO HOME OR SELFCARE Is pt being admited?: No Does the pt Need Aspirin: No Condition: Stable Instructions: Abuse of Alcohol (ED), Suicide Prevention for Adults (ED) Additional Instructions: = Referrals: [facility] [Provider Group] - 3-5 Days [facility] [Outside] - 24 Hours
[2019-08-08 08:54] LABS: Basophils # (Auto) 0.1 K/mm3 (0.0-0.1); Eosinophils # (Auto) 0.3 K/mm3 (0.0-0.4); Eosinophils % (Auto) 3.9 % (0.0-4.3); Hematocrit 42.7 % (35.5-45.6); Hemoglobin 14.8 gm/dl (11.8-15.2); Lymphocytes # (Auto) 1.7 K/mm3 (1.2-5.4); Lymphocytes % (Auto) 22.5 % (13.4-35.0); Mean Corpuscular HGB Conc 35 % (32-34); Mean Corpuscular Volume 89 fl (84-94); Monocytes # (Auto) 0.9 K/mm3 (0.0-0.8); Monocytes % (Auto) 12.2 % (0.0-7.3); Platelet Count 286 K/mm3 (140-440); Red Cell Distribution Width 12.9 % (13.2-15.2)
[2019-08-08 09:05] LABS: Alanine Aminotransferase 20 units/L (7-56); BUN/Creatinine Ratio 19; Blood Urea Nitrogen 17 mg/dL (9-20); Hemolysis Index 10
[2019-08-08 12:38] LABS: Bilirubin,Urine NEG (Negative); Blood,Urine NEG (Negative); Color,Urine Yellow (Yellow); Protein,Urine <15 mg/dL mg/dL (Negative)
[2019-08-08 13:06] LABS: Benzodiazepines Screen,Urine PRESUMPTIVE NEGATIVE; Cannabinoid Screen,Urine PRESUMPTIVE NEGATIVE; Cocaine Screen,Urine PRESUMPTIVE NEGATIVE; Methadone Screen,Urine PRESUMPTIVE NEGATIVE; Opiate Screen,Urine PRESUMPTIVE NEGATIVE
[2019-08-08 13:21] LABS: Amphetamine Screen,Urine PRESUMPTIVE POSITIVE
--- NOTE | 2019-08-09 21:05 | Consultation ---
History of Present Illness - Reason for Consult Consult date: 08/09/19 Reason for consult: psychiatric evaluation - Chief Complaint Chief complaint: "I got put out." - History of Present Psychiatric Illness 63 year old W/M who presents to the emergency room for suicidal ideation with a plan as well as seeking alcohol detox. He stated he drinks however could not report the frequency, duration or last time he drank. ETOH level not detectable. He admits to using methamphetamine occasionally and says he and his friend were using at his brother's house. His brother put him out but not the friend. Patient reportedly has been feeling depressed for many years and also has been having suicidal ideations. Per the record, he reports in the past he indulged in self-injurious behavior by cutting himself. He reports suicidal ideation and says, "I see things." Patient also reported high anxiety levels. His sleep is erratic and appetite has decreased. He denied any previous history of manic symptoms and denies AH. Past psychiatric history - Past Medical History Past Medical History: other (back pain) - past Psychiatric treatment and history Psych: Anxiety, Addictions (alcohol/methamphetamine), Depression - Social History Social history: other (homeless, and not much family support.) Mental Status Exam - Vital signs - Exam Orientation: time, place, person dishelved Affect: depressed, anxious Mood: hopeless, congruent with affect, sad, anxious Thought Process: Intact Perceptions: none Speech: slow Concentration: distractible Motor activity: normal Level of consciousness: alert Memory: Intact Sleep Symptoms: Difficulty Falling Asleep Appetite: decreased Interaction: cooperative Results Result Diagrams: 12/24/17 19:54 12/24/17 19:54 All other labs normal. Assessment and Plan Assessment and plan: Assessment: Major depressive disorder, recurrent, severe Anxiety disorder unspecified amphetamine use disorder Plan: continue 1013 consider PHP start paxil 10mg daily and seroquel 100mg hs for depression and psychotic symptoms. risks/benefits discussed dispo: inpatient psychiatric hospital. will reeval need for 1013 in 24 hours and consider PHP will staff with Dr. Allan Medications and Allergies Allergies Allergy/AdvReac Type Severity Reaction Status Date / Time Penicillins Allergy Anaphylaxis Verified 08/08/19 02:20 Home Medications Medication Instructions Recorded Confirmed Last Taken Type PHENobarbitaL [PHENobarbital] 30 mg PO Q8H 06/30/14 08/08/19 Unknown History Phenytoin [Dilantin] 100 mg PO TID 06/30/14 08/08/19 Unknown History Mental Status Exam - Vital signs Last Vital Signs Temp 98.6 F 08/09/19 19:10 Pulse 94 H 08/09/19 19:10 Resp 18 08/09/19 20:49 BP 119/83 08/09/19 19:10 Pulse Ox 100 08/09/19 20:49 Results Result Diagrams: 08/08/19 08:20 08/08/19 08:20 All other labs normal.
[2019-08-09] MEDS ORDERED: QUEtiapine 100 MG TAB PO SCH (22:00)
[2019-08-10 08:32] VITALS: BP 125/85
--- NOTE | 2019-08-10 09:12 | Progress Note ---
Subjective - Reason for Consult Consult date: 08/10/19 Reason for consult: Psychiatry Follow-up - Chief Complaint Chief complaint: "I will get help" 63 year old W/M who presents to the emergency room for suicidal ideation with a plan as well as seeking alcohol detox. Today the patient was calm and cooperative during the assessment. He stated that he is homeless at this time. He stated that he have to get help for his alcoholism. He stated that his last drink was a couple of days ago. He stated that he felt 'sad' when he arrived to the ER. He stated that he will follow up with outpatient rehab services, He denies SI/HI's and AVH's. He denies any side effects from his medication. Mental Status Exam - Vital signs Last Vital Signs Temp 97.8 F 08/10/19 08:31 Pulse 69 08/10/19 08:31 Resp 18 08/10/19 02:00 BP 125/85 08/10/19 08:31 Pulse Ox 95 08/10/19 08:31 - Exam Narrative exam: MSE: Appearance: calm, cooperative Behavior: regular eye contact Speech: regular rate and tone Mood: "okay" Affect: congruent to mood Thought Process: circumstantial Thought Content: denies SI/HI's and AVH's Motor Activity: lying in bed Cognition: A/O x 3 Insight: fair Judgment: fair Assessment and Plan Impression: MDD. Hx of Alcohol Abuse. Substance Use DO (Amphetamines). Today the patient was calm and cooperative during the assessment. The patient is no threat to self. No acute withdrawals noted (etoh). DDx: Schizophrenia, Bipolar DO with psychosis, SCAD, Substance Induced Mood/Psychotic DO Recommendation/Plan: Rescind 1013. Continue Seroquel 100 mg PO HS and Paxil 10 mg PO daily. Discussed possible metabolic side effects of Seroquekl with the patient, he verbalized understanding. Discussed possible suicidality/medication induced adithya with the patient reference Paxil, he verbalized understanding. Case Mgmt involvement, the patient is homeless. Dispo: The patient can follow up with [facility] for outpatient psy/rehab services. Staffed with Dr Sarbjit Allan.
[2019-08-10] MEDS ORDERED: PARoxetine 10 MG TAB PO SCH (10:00)
== END 2019-08-10 13:05 | disposition home or self-care (01) ==
LOC: ED 02:08
DX: F33.9 Major depressive disorder, recurrent, unspecified (principal); F41.9 Anxiety disorder, unspecified; J44.9 Chronic obstructive pulmonary disease, unspecified; F17.200 Nicotine dependence, unspecified, uncomplicated
CPT/HCPCS: 36415; 80053; 80307; 80320; 81001; 82550; 85025; 93005; 93010; G0480

== ENCOUNTER 2019-09-28 20:14 | Emergency (ER) | payer SELFPAY ==
--- NOTE | 2019-09-28 20:55 | Emergency Department Report ---
Blank Doc - Documentation Documentation: 63-year-old male that presents with weakness and shakiness. Last alochol drink was 2 days ago. HX of ETOH abuse. Denies any SI/HI. This initial assessment/diagnostic orders/clinical plan/treatment(s) is/are subject to change based on patient's health status, clinical progression and re- assessment by fellow clinical providers in the ED. Further treatment and workup at subsequent clinical providers discretion. Patient/guardians urged not to elope from the ED as their condition may be serious if not clinically assessed and managed. Initial orders include: 1- Patient sent to [facility] for further evaluation and treatment 2- labs 3- UA
[2019-09-28 22:25] LABS: Amorphous Crystals,Urine Few; Bilirubin,Urine NEG (Negative); Blood,Urine NEG (Negative); Color,Urine Yellow (Yellow); Sperm,Urine 3+ /HPF (NP)
[2019-09-28 22:27] LABS: RBC,Urine < 1.0 /HPF (0.0-6.0); WBC,Urine < 1.0 /HPF (0.0-6.0)
[2019-09-28 22:31] LABS: Amphetamine Screen,Urine PRESUMPTIVE NEGATIVE; Benzodiazepines Screen,Urine PRESUMPTIVE NEGATIVE; Cannabinoid Screen,Urine PRESUMPTIVE NEGATIVE; Cocaine Screen,Urine PRESUMPTIVE NEGATIVE; Methadone Screen,Urine PRESUMPTIVE NEGATIVE
[2019-09-28 22:47] LABS: Opiate Screen,Urine PRESUMPTIVE POSITIVE
[2019-09-28 23:55] LABS: Basophils # (Auto) 0.1 K/mm3 (0.0-0.1); Basophils % (Auto) 0.7 % (0.0-1.8); Eosinophils # (Auto) 0.1 K/mm3 (0.0-0.4); Eosinophils % (Auto) 1.1 % (0.0-4.3); Hematocrit 41.3 % (35.5-45.6); Hemoglobin 14.1 gm/dl (11.8-15.2); Lymphocytes # (Auto) 2.5 K/mm3 (1.2-5.4); Mean Corpuscular HGB Conc 34 % (32-34); Mean Corpuscular Volume 89 fl (84-94); Monocytes % (Auto) 11.2 % (0.0-7.3); Platelet Count 394 K/mm3 (140-440); Red Blood Count 4.63 M/mm3 (3.65-5.03); Red Cell Distribution Width 13.2 % (13.2-15.2)
[2019-09-29 00:20] LABS: Alanine Aminotransferase 17 units/L (7-56); Albumin 4.3 g/dL (3.9-5); BUN/Creatinine Ratio 19; Blood Urea Nitrogen 17 mg/dL (9-20); Calcium 9.6 mg/dL (8.4-10.2); Hemolysis Index 4
[2019-09-29] MEDS ORDERED: KETOROLAC 30 MG/1 ML INJ IM ONE (01:54)
--- NOTE | 2019-09-29 03:13 | Emergency Department Report ---
HPI - General Chief Complaint: Alcohol Time Seen by Provider: 09/28/19 20:52 - HPI HPI: 63-year-old male presents to the emergency department with the request for being sent to inpatient alcohol rehabilitation and detox. The patient says that he drinks beer and moderate quantity at least every other day. He last had a drink 2 days ago. Overall the patient says that he feels slightly anxious and jittery. He denies any chest pain, shortness of breath, fever, nausea, vomiting. He denies any illicit drug use. He is a tobacco smoker. He has a past history of asthma, COPD, hypertension, seizures, hepatitis B and chronic back pain. The patient also admits that he is currently homeless. He is able to "sometimes" stay in the garage of someone he knows in [place]. ED Past Medical Hx - Past Medical History Previous Medical History?: Yes Hx Hypertension: Yes Hx CVA: No Hx Heart Attack/AMI: No Hx Congestive Heart Failure: No Hx Diabetes: No Hx Deep Vein Thrombosis: No Hx Pulmonary Embolism: No Hx GERD: No Hx Liver Disease: No Hx Renal Disease: No Hx Sickle Cell Disease: No Hx Arthritis: No Hx Headaches / Migraines: No Hx Seizures: Yes Hx Kidney Stones: No Hx Psychiatric Treatment: Yes (states "I can't remember" to most questions) Hx Asthma: Yes Hx COPD: Yes Hx Tuberculosis: No Hx Dementia: No Hx HIV: No Additional medical history: Hep B, Bronchitis and chronic back pain - Surgical History Past Surgical History?: No Hx Coronary Stent: No Hx Open Heart Surgery: No Hx Pacemaker: No Hx Internal Defibrillator: No Hx Cholecystectomy: No Hx Appendectomy: No Hx Breast Surgery: No - Social History Smoking Status: Current Every Day Smoker Substance Use Type: Alcohol - Medications Home Medications: Home Medications Medication Instructions Recorded Confirmed Last Taken Type PHENobarbitaL [PHENobarbital] 30 mg PO Q8H 06/30/14 08/08/19 Unknown History Phenytoin [Dilantin] 100 mg PO TID 06/30/14 08/08/19 Unknown History ED Review of Systems ROS: Stated complaint: MEDICAL CLEARANCE Other details as noted in HPI Comment: All other systems reviewed and negative Constitutional: denies: chills, fever Eyes: denies: eye pain, vision change ENT: denies: ear pain, throat pain Respiratory: denies: cough, shortness of breath Cardiovascular: denies: chest pain, palpitations Gastrointestinal: denies: abdominal pain, vomiting Genitourinary: denies: dysuria, discharge Musculoskeletal: denies: back pain, arthralgia Skin: denies: rash, lesions Neurological: denies: headache, weakness Physical Exam - Physical Exam Vital Signs: Vital Signs 09/28/19 09/29/19 20:22 01:31 Temperature 98.3 F Pulse Rate 90 68 Respiratory 17 18 Rate Blood Pressure 140/98 Blood Pressure 124/83 [Right] O2 Sat by Pulse 95 95 Oximetry Physical Exam: GENERAL: The patient is well-developed well-nourished. HEENT: Normocephalic. Atraumatic. Patient has moist mucous membranes. EYES: Extraocular motions are intact. NECK: Supple. Trachea is midline. CHEST/LUNGS: Clear to auscultation. There is no respiratory distress noted. HEART/CARDIOVASCULAR: Regular. There is no tachycardia. There is no murmur. ABDOMEN: Abdomen is soft, nontender. Patient has normal bowel sounds. There is no abdominal distention. SKIN:Skin is warm and dry. . NEURO: The patient is awake, alert, and oriented. The patient is cooperative. The patient has no focal neurologic deficits. Normal speech. MUSCULOSKELETAL: There is no tenderness or deformity. There is no limitation range of motion. There is no evidence of acute injury. BACK: No midline thoracic or lumbar tenderness to palpation, step-off or deformity. ED Course Vital Signs 09/28/19 09/29/19 20:22 01:31 Temperature 98.3 F Pulse Rate 90 68 Respiratory 17 18 Rate Blood Pressure 140/98 Blood Pressure 124/83 [Right] O2 Sat by Pulse 95 95 Oximetry ED Medical Decision Making - Lab Data Result diagrams: 09/28/19 23:04 09/28/19 23:04 - Medical Decision Making Patient presents requesting inpatient alcohol detox and rehabilitation. He is adamant that he is interested in getting help with his alcohol dependence but also admits that he is currently homeless and needs some help with placement as well. His last drink was 2 days ago. While he says he is slightly anxious and jittery, he does not appear to have any other signs or symptoms of alcohol withdrawal at this time. Labs are mostly unremarkable including CBC, metabolic panel, blood alcohol level and urine drug screen, except for opiates. His vital signs and stable throughout his ED course. I am unable to provide any assistance with placement or case management this evening. A consult for case management will be placed. A consult will also be placed for the psychiatric assessment team to see if there is any other referrals for alcohol detox. Critical Care Time: No Critical care attestation.: If time is entered above; I have spent that time in minutes in the direct care of this critically ill patient, excluding procedure time. ED Disposition Clinical Impression: Desire for detoxification Disposition: [facility] Is pt being admited?: No Condition: Stable Referrals: PRIMARY CARE [Primary Care Provider] - 3-5 Days Time of Disposition: 03:14
[2019-09-29] MEDS ORDERED: ACETAMINOPHEN 325 MG TAB ONE (04:53)
[2019-09-29] MEDS ORDERED: ACETAMINOPHEN 325 MG TAB PO ONE (05:36)
[2019-09-29 10:30] VITALS: BP 120/69
== END 2019-09-29 12:01 | disposition left against medical advice (07) ==
LOC: ED 20:14
DX: F10.239 Alcohol dependence with withdrawal, unspecified (principal); I10 Essential (primary) hypertension; J44.9 Chronic obstructive pulmonary disease, unspecified; F17.200 Nicotine dependence, unspecified, uncomplicated; Z79.899 Other long term (current) drug therapy; Z88.0 Allergy status to penicillin
CPT/HCPCS: 36415; 80053; 80307; 81001; 85025; 93005; 93010; 96372; 99284; J1885; 80320; G0480

== ENCOUNTER 2019-10-27 13:52 | Emergency (ER) | payer SELFPAY ==
[2019-10-27] MEDS ORDERED: FAMOTIDINE 20 MG TAB PO ONE (14:27)
--- NOTE | 2019-10-27 14:27 | Emergency Department Report ---
Chief Complaint: Alcohol Stated Complaint: ETOH/DRUG Time Seen by Provider: 10/27/19 14:26 - HPI History of Present Illness: 63 y/o male presents with 1) requests for detox from [facility] and meth/drugs 2) chest pain and body pain no trauma took a bus here walks with a steady gait labs ekg ua xr chest main side Vital Signs 10/27/19 14:11 Temperature 97.6 F Pulse Rate 68 Respiratory 16 Rate Blood Pressure 114/75 O2 Sat by Pulse 92 Oximetry - Exam Vital Signs: Vital Signs 10/27/19 14:11 Temperature 97.6 F Pulse Rate 68 Respiratory 16 Rate Blood Pressure 114/75 O2 Sat by Pulse 92 Oximetry MSE screening note: Focused history and physical exam performed. Due to findings the following was ordered: ED Disposition for MSE Condition: Stable
[2019-10-27 15:34] LABS: Hematocrit 41.7 % (35.5-45.6); Hemoglobin 14.3 gm/dl (11.8-15.2); Mean Corpuscular HGB Conc 34 % (32-34); Mean Corpuscular Volume 89 fl (84-94); Platelet Count 286 K/mm3 (140-440); Red Cell Distribution Width 13.7 % (13.2-15.2)
[2019-10-27 15:50] LABS: INR 0.89 (0.87-1.13)
[2019-10-27 15:52] LABS: Alanine Aminotransferase 22 units/L (7-56); Albumin 4.1 g/dL (3.9-5); BUN/Creatinine Ratio 16; Blood Urea Nitrogen 11 mg/dL (9-20); Calcium 9.1 mg/dL (8.4-10.2); Hemolysis Index 7
--- NOTE | 2019-10-27 16:05 | XRay Report ---
CHEST 2 VIEWS INDICATION: cp body aches cough. COMPARISON: 09/22/2017 FINDINGS: Support devices: None. Heart: Within normal limits. Lungs/pleura: No acute air space or interstitial disease. No pneumothorax. The lungs are hyperinflat ed suggesting underlying emphysema. Additional findings: None. IMPRESSION: No acute findings. Hyperinflated lungs. Signer Name: Monty Peralta Jr, MD Signed: 10/27/2019 4:00 PM Workstation Name: [id number]
[2019-10-28] MEDS ORDERED: ACETAMINOPHEN 325 MG TAB PO ONE (02:43)
--- NOTE | 2019-10-28 05:29 | Emergency Department Report ---
ED Alcohol HPI - General Chief Complaint: Alcohol Stated Complaint: ETOH/DRUG Time Seen by Provider: 10/28/19 01:49 Source: patient, old records reviewed Mode of arrival: Ambulatory Limitations: No Limitations - History of Present Illness Initial Comments: 63-year-old male with a past medical history asthma, COPD, hypertension, seizures, hepatitis B, chronic back pain, alcohol and methamphetamine abuse presents to the hospital requesting rehabilitation for alcohol and substance abuse. Patient last use alcohol and meth several days ago. He complains of nausea without vomiting. He complains of occasional visual hallucinations and has a sensation that things are crawling on him. Patient does not take any medications currently. He does not endorse suicidal homicidal ideation. He complains of intermittent anterior aching chest pain across his chest and noted to have a frequent cough during examination. Continues to smoke cigarettes. No pressure nausea, vomiting, or diaphoresis. He is homeless for the last several days after his brother kicked him out. He arrives to the ED with a suitcase. - Related Data Home Medications Medication Instructions Recorded Confirmed Last Taken PHENobarbitaL [PHENobarbital] 30 mg PO Q8H 06/30/14 08/08/19 Unknown Phenytoin [Dilantin] 100 mg PO TID 06/30/14 08/08/19 Unknown Allergies Allergy/AdvReac Type Severity Reaction Status Date / Time Penicillins Allergy Anaphylaxis Verified 09/28/19 20:20 ED Review of Systems ROS: Stated complaint: ETOH/DRUG Other details as noted in HPI Comment: All other systems reviewed and negative ED Past Medical Hx - Past Medical History Previous Medical History?: Yes Hx Hypertension: Yes Hx CVA: No Hx Heart Attack/AMI: No Hx Congestive Heart Failure: No Hx Diabetes: No Hx Deep Vein Thrombosis: No Hx Pulmonary Embolism: No Hx GERD: No Hx Liver Disease: No Hx Renal Disease: No Hx Sickle Cell Disease: No Hx Arthritis: No Hx Headaches / Migraines: No Hx Seizures: Yes Hx Kidney Stones: No Hx Psychiatric Treatment: Yes (states "I can't remember" to most questions) Hx Asthma: Yes Hx COPD: Yes Hx Tuberculosis: No Hx Dementia: No Hx HIV: No Additional medical history: Hep B, Bronchitis and chronic back pain - Surgical History Past Surgical History?: No Hx Coronary Stent: No Hx Open Heart Surgery: No Hx Pacemaker: No Hx Internal Defibrillator: No Hx Cholecystectomy: No Hx Appendectomy: No Hx Breast Surgery: No - Social History Smoking Status: Current Every Day Smoker Substance Use Type: Alcohol, Methamphetamines - Medications Home Medications: Home Medications Medication Instructions Recorded Confirmed Last Taken Type PHENobarbitaL [PHENobarbital] 30 mg PO Q8H 06/30/14 08/08/19 Unknown History Phenytoin [Dilantin] 100 mg PO TID 06/30/14 08/08/19 Unknown History ED Physical Exam - General Limitations: No Limitations - Other Other exam information: General: No limitations, patient is alert in no acute distress Head exam: Atraumatic, normocephalic Eyes exam: Normal appearance ENT: Moist mucous membrane Neck exam: Normal inspection, full range of motion Respiratory exam: Clear to auscultation bilateral, no wheezes, rales, crackles Cardiovascular: Normal rate and rhythm, reproducible anterior chest wall tenderness bilaterally including midline Abdomen: Soft, nondistended, and nontender, with normal bowel sounds, no rebound, or guarding, Extremity: No deformity, the nasal leg edema, full range of motion Back: Normal Inspection Neurologic: Alert, oriented x3, speech clear, no gross motor or sensory deficit Psychiatric: Normal mood, affect Skin: No rash ED Course Vital Signs 10/27/19 10/28/19 10/28/19 14:11 00:00 01:50 Temperature 97.6 F 98.4 F Pulse Rate 68 73 61 Respiratory 16 18 12 Rate Blood Pressure 114/75 129/84 121/86 O2 Sat by Pulse 92 96 95 Oximetry 10/28/19 10/28/19 10/28/19 02:00 03:00 03:30 Temperature Pulse Rate 57 L 61 69 Respiratory 13 16 18 Rate Blood Pressure 115/76 123/85 122/75 O2 Sat by Pulse 95 98 96 Oximetry 10/28/19 10/28/19 10/28/19 04:00 04:30 05:00 Temperature Pulse Rate 65 66 67 Respiratory 13 14 13 Rate Blood Pressure 106/64 102/57 101/60 O2 Sat by Pulse 96 97 94 Oximetry ED Medical Decision Making - Lab Data Result diagrams: 10/27/19 15:19 10/27/19 15:19 Lab Results 10/27/19 10/27/19 10/27/19 Range/Units 15:19 15:19 15:19 WBC 7.7 (4.5-11.0) K/mm3 RBC 4.70 (3.65-5.03) M/mm3 Hgb 14.3 (11.8-15.2) gm/dl Hct 41.7 (35.5-45.6) % MCV 89 (84-94) fl MCH 30 (28-32) pg MCHC 34 (32-34) % RDW 13.7 (13.2-15.2) % Plt Count 286 (140-440) K/mm3 PT 12.1 L (12.2-14.9) Sec. INR 0.89 (0.87-1.13) Sodium 140 (137-145) mmol/L Potassium 4.2 (3.6-5.0) mmol/L Chloride 101.2 (98-107) mmol/L Carbon Dioxide 23 (22-30) mmol/L Anion Gap 20 mmol/L BUN 11 (9-20) mg/dL Creatinine 0.7 L (0.8-1.5) mg/dL Estimated GFR > 60 ml/min BUN/Creatinine Ratio 16 % Glucose 151 H (75-100) mg/dL Calcium 9.1 (8.4-10.2) mg/dL Magnesium 1.80 (1.7-2.3) mg/dL Total Bilirubin 0.30 (0.1-1.2) mg/dL AST 33 (5-40) units/L ALT 22 (7-56) units/L Alkaline Phosphatase 61 (35-129) units/L Total Creatine Kinase 126 (55-170) units/L Troponin T < 0.010 (0.00-0.029) ng/mL Total Protein 7.1 (6.3-8.2) g/dL Albumin 4.1 (3.9-5) g/dL Albumin/Globulin Ratio 1.4 % Salicylates (2.8-20.0) mg/dL Acetaminophen (10.0-30.0) ug/mL Plasma/Serum Alcohol (0-0.07) % 10/27/19 10/27/19 10/27/19 Range/Units 15:19 15:19 15:19 WBC (4.5-11.0) K/mm3 RBC (3.65-5.03) M/mm3 Hgb (11.8-15.2) gm/dl Hct (35.5-45.6) % MCV (84-94) fl MCH (28-32) pg MCHC (32-34) % RDW (13.2-15.2) % Plt Count (140-440) K/mm3 PT (12.2-14.9) Sec. INR (0.87-1.13) Sodium (137-145) mmol/L Potassium (3.6-5.0) mmol/L Chloride (98-107) mmol/L Carbon Dioxide (22-30) mmol/L Anion Gap mmol/L BUN (9-20) mg/dL Creatinine (0.8-1.5) mg/dL Estimated GFR ml/min BUN/Creatinine Ratio % Glucose (75-100) mg/dL Calcium (8.4-10.2) mg/dL Magnesium (1.7-2.3) mg/dL Total Bilirubin (0.1-1.2) mg/dL AST (5-40) units/L ALT (7-56) units/L Alkaline Phosphatase (35-129) units/L Total Creatine Kinase (55-170) units/L Troponin T (0.00-0.029) ng/mL Total Protein (6.3-8.2) g/dL Albumin (3.9-5) g/dL Albumin/Globulin Ratio % Salicylates < 0.3 L (2.8-20.0) mg/dL Acetaminophen < 5.0 L (10.0-30.0) ug/mL Plasma/Serum Alcohol 0.01 (0-0.07) % // Range/Units 02:59 WBC (4.5-11.0) K/mm3 RBC (3.65-5.03) M/mm3 Hgb (11.8-15.2) gm/dl Hct (35.5-45.6) % MCV (84-94) fl MCH (28-32) pg MCHC (32-34) % RDW (13.2-15.2) % Plt Count (140-440) K/mm3 PT (12.2-14.9) Sec. INR (0.87-1.13) Sodium (137-145) mmol/L Potassium (3.6-5.0) mmol/L Chloride (98-107) mmol/L Carbon Dioxide (22-30) mmol/L Anion Gap mmol/L BUN (9-20) mg/dL Creatinine (0.8-1.5) mg/dL Estimated GFR ml/min BUN/Creatinine Ratio % Glucose (75-100) mg/dL Calcium (8.4-10.2) mg/dL Magnesium (1.7-2.3) mg/dL Total Bilirubin (0.1-1.2) mg/dL AST (5-40) units/L ALT (7-56) units/L Alkaline Phosphatase (35-129) units/L Total Creatine Kinase (55-170) units/L Troponin T < 0.010 (0.00-0.029) ng/mL Total Protein (6.3-8.2) g/dL Albumin (3.9-5) g/dL Albumin/Globulin Ratio % Salicylates (2.8-20.0) mg/dL Acetaminophen (10.0-30.0) ug/mL Plasma/Serum Alcohol (0-0.07) % - EKG Data -: EKG Interpreted by [place] EKG shows normal: sinus rhythm, ST-T waves (no STEMI) Rate: normal - Radiology Data Radiology results: report reviewed CHEST 2 VIEWS INDICATION: cp body aches cough. COMPARISON: 09/22/2017 FINDINGS: Support devices: None. Heart: Within normal limits. Lungs/pleura: No acute air space or interstitial disease. No pneumothorax. The lungs are hyperinflated suggesting underlying emphysema. Additional findings: None. IMPRESSION: No acute findings. Hyperinflated lungs. - Medical Decision Making Patient's atypical reproducible anterior wall chest pain. He has a normal EKG and negative troponin 2 with unremarkable chest x-ray. Patient is medically cleared for possible inpatient admission for substance abuse and alcohol treatment. The patient does not qualify for inpatient treatment he may need group home resources in the morning since he is currently homeless. Patient is voluntary - Differential Diagnosis homelessness, substance abuse, alcohol abuse Critical Care Time: No Critical care attestation.: If time is entered above; I have spent that time in minutes in the direct care of this critically ill patient, excluding procedure time. ED Disposition Clinical Impression: Alcohol abuse, Methamphetamine abuse, Homeless, Desire for detoxification Condition: Stable Referrals: PRIMARY CARE, [Primary Care Provider] - 3-5 Days
[2019-10-28 06:08] LABS: Bilirubin,Urine NEG (Negative); Blood,Urine NEG (Negative); Color,Urine Yellow (Yellow); Mucus,Urine FEW /HPF; Protein,Urine <15 mg/dL mg/dL (Negative)
[2019-10-28 06:16] LABS: Benzodiazepines Screen,Urine PRESUMPTIVE NEGATIVE; Cannabinoid Screen,Urine PRESUMPTIVE NEGATIVE; Methadone Screen,Urine PRESUMPTIVE NEGATIVE; Opiate Screen,Urine PRESUMPTIVE NEGATIVE
[2019-10-28 06:51] LABS: Amphetamine Screen,Urine PRESUMPTIVE POSITIVE; Cocaine Screen,Urine PRESUMPTIVE POSITIVE
[2019-10-28 11:14] VITALS: BP 116/73
== END 2019-10-28 14:37 | disposition left against medical advice (07) ==
LOC: ED 13:52
DX: F10.10 Alcohol abuse, uncomplicated (principal); F15.10 Other stimulant abuse, uncomplicated; R07.89 Other chest pain; I10 Essential (primary) hypertension; J45.909 Unspecified asthma, uncomplicated; F17.200 Nicotine dependence, unspecified, uncomplicated; Z59.0 Homelessness; Z79.899 Other long term (current) drug therapy; Z88.0 Allergy status to penicillin
CPT/HCPCS: 36415; 71046; 80053; 80307; 80320; 81001; 82550; 83735; 84484; 85027; 85610; 93005; 93010; G0480

== ENCOUNTER 2019-11-04 21:36 | Emergency (ER) | payer SELFPAY ==
--- NOTE | 2019-11-04 22:05 | Emergency Department Report ---
Blank Doc - Documentation Documentation: This is a 63-year-old male that presents with visual and auditory hallucinatio ns. Denies any SI/HI. This initial assessment/diagnostic orders/clinical plan/treatment(s) is/are subject to change based on patient's health status, clinical progression and re- assessment by fellow clinical providers in the ED. Further treatment and workup at subsequent clinical providers discretion. Patient/guardians urged not to elope from the ED as their condition may be serious if not clinically assessed and managed. Initial orders include: 1- Patient sent to MAIN ED for further evaluation and treatment 2- data scientist was notified to have patient be brought back [facility]. 3- RN was notified to keep patient as close range and observation until room available 4- Patient presents with substantial risk of imminent harm to self, appears to be so unable to care for his/her own physical health and safety as to create an imminently life-endangering crisis, and has committed/expressed life endangering crisis to self. Due to this and other complaints, patient is put on psych hold.
[2019-11-04] MEDS ORDERED: HALOPERIDOL LACTATE 5 MG/1 ML INJ IM PRN (22:59)
[2019-11-04] MEDS ORDERED: LORazepam 2 MG/ML VIAL IM PRN (22:59)
--- NOTE | 2019-11-04 23:01 | Emergency Department Report ---
ED General Adult HPI - General Chief complaint: Psych Stated complaint: HEARING VOICES AND SEEING THINGS Time Seen by Provider: 11/04/19 22:04 Source: patient, RN notes reviewed, old records reviewed Mode of arrival: Ambulatory Limitations: Other (Patient is disorganized, appears to be intoxicated) - History of Present Illness Initial comments: This is a 63-year-old gentleman. I have evaluated this patient in the past. His past medical history includes polysubstance abuse, asthma, COPD, hypertension, bronchitis, chronic pain syndrome. I saw him within the past week with request for detox. He had an extensive thorough and appropriate medical ev aluation in the emergency room. Today, he presents to the ER with a complaint of feeling like people are after him, initially denied suicidality and homicidality, and also complaining of generalized body pain. When I go to evaluate the patient, he is standing, but appears to be unsteady on his feet, appears to be intoxicated, and endorses suicidality. He will not further elaborate on the nature of his suicidal thoughts. He is asking for something to eat and drink. He indicates he was dropped off by his brother. Triage nurse has indicated that the patient was not dropped off by anyone. The patient is now resting on his stretcher, attempting to sleep, and in no acute distress. No additional history is available at this time. -: unknown Radiation: other Quality: other Consistency: other Improves with: other Worsens with: other Associated Symptoms: other - Related Data Home Medications Medication Instructions Recorded Confirmed Last Taken No Known Home Medications [No 10/28/19 10/28/19 Unknown Reported Home Medications] Allergies Allergy/AdvReac Type Severity Reaction Status Date / Time Penicillins Allergy Anaphylaxis Verified 09/28/19 20:20 ED Review of Systems ROS: Stated complaint: HEARING VOICES AND SEEING THINGS Other details as noted in HPI Comment: Intoxication, disorganized behavior ED Past Medical Hx - Past Medical History Previous Medical History?: Yes Hx Hypertension: Yes Hx CVA: No Hx Heart Attack/AMI: No Hx Congestive Heart Failure: No Hx Diabetes: No Hx Deep Vein Thrombosis: No Hx Pulmonary Embolism: No Hx GERD: No Hx Liver Disease: No Hx Renal Disease: No Hx Sickle Cell Disease: No Hx Arthritis: No Hx Headaches / Migraines: No Hx Seizures: Yes Hx Kidney Stones: No Hx Psychiatric Treatment: Yes (states "I can't remember" to most questions) Hx Asthma: Yes Hx COPD: Yes Hx Tuberculosis: No Hx Dementia: No Hx HIV: No Additional medical history: Hep B, Bronchitis and chronic back pain - Surgical History Hx Coronary Stent: No Hx Open Heart Surgery: No Hx Pacemaker: No Hx Internal Defibrillator: No Hx Cholecystectomy: No Hx Appendectomy: No Hx Breast Surgery: No - Social History Smoking Status: Current Every Day Smoker Substance Use Type: Alcohol, Methamphetamines - Medications Home Medications: Home Medications Medication Instructions Recorded Confirmed Last Taken Type No Known Home Medications [No 10/28/19 10/28/19 Unknown History Reported Home Medications] ED Physical Exam - General Limitations: Other (Intoxication, disorganized behavior) General appearance: appears intoxicated - Head Head exam: Present: atraumatic, normocephalic - Eye Eye exam: Present: normal appearance, EOMI. Absent: nystagmus - ENT ENT exam: Present: normal exam, normal orophraynx, mucous membranes moist, normal external ear exam - Neck Neck exam: Present: normal inspection, full ROM. Absent: tenderness, meningismus - Respiratory Respiratory exam: Present: normal lung sounds bilaterally. Absent: respiratory distress - Cardiovascular Cardiovascular Exam: Present: regular rate, normal rhythm, normal heart sounds. Absent: bradycardia, tachycardia, irregular rhythm, systolic murmur, diastolic murmur, rubs, gallop - GI/Abdominal GI/Abdominal exam: Present: soft. Absent: distended, tenderness, rebound, rigid, pulsatile mass - Rectal Rectal exam: Present: deferred - Extremities Exam Extremities exam: Present: normal inspection, full ROM, other (2+ pulses noted i n the bilateral upper and lower extremities. There is no palpable cord. negative Homans sign. Muscular compartments are soft. The pelvis is stable.). Absent: pedal edema, calf tenderness - Back Exam Back exam: Present: normal inspection, full ROM. Absent: tenderness, CVA tenderness (R), CVA tenderness (L), paraspinal tenderness, vertebral tenderness - Neurological Exam Neurological exam: Present: other (The patient is awake. He is moving 4 extremities. He speaks in complete sentences. He appears to be intoxicated. He has a flat affect.). Absent: motor sensory deficit - Psychiatric Psychiatric exam: Present: depressed, flat affect, suicidal ideation - Skin Skin exam: Present: warm, dry, intact, normal color. Absent: rash ED Course Vital Signs 11/04/19 11/04/19 11/04/19 21:43 22:11 23:25 Temperature 97.9 F 97.9 F 98.1 F Pulse Rate 86 95 H 75 Respiratory 18 18 18 Rate Blood Pressure 150/94 150/94 Blood Pressure 142/70 [Right] O2 Sat by Pulse 95 100 96 Oximetry 11/05/19 11/05/19 11/05/19 07:42 08:00 14:42 Temperature 97.4 F L 97.6 F Pulse Rate 61 80 Respiratory 18 16 18 Rate Blood Pressure Blood Pressure 107/63 117/74 [Right] O2 Sat by Pulse 96 96 Oximetry 11/05/19 19:05 Temperature 98.2 F Pulse Rate 70 Respiratory 18 Rate Blood Pressure Blood Pressure 118/70 [Right] O2 Sat by Pulse Oximetry - Reevaluation(s) Reevaluation #1: 11/04/19 23:10 Differential diagnosis, including but not limited to: Intoxication, homelessness, malingering, secondary gain, overdose, medical clearance for psychiatric placement Assessment and plan: 63-year-old gentleman who appears to be intoxicated has endorsed suicidality, and appears to be disorganized. He has presented multiple times to this department over the past few days, weeks and months. Suspect numerous psychosocial factors contributing to his recurrent presentation. He is placed on ER hold, screening laboratory studies ordered, noncontrast CT scan of the brain is ordered, psychiatric consultation is ordered. There is no midline cervical spine tenderness or step-offs. He is moving 4 extremities spontaneously. Reevaluation #2: 11/05/19 01:51 Resting comfortably and in no acute distress. CT scan brain and cervical spine negative for acute disease. Screening laboratory studies reviewed and appreciated. At this point in time, patient does not appear to have an immediate medical contraindication to psychiatric admission, evaluation, con sultation and placement. Suspect homelessness, alcohol abuse, polysubstance use as primary contributing factors to his initial presentation. Reevaluation #3: 11/06/19 01:27 Patient does not have an immediate medical contraindication to psychiatric admission, evaluation, consultation and placement. ED Medical Decision Making - Lab Data Result diagrams: 11/05/19 15:07 11/05/19 00:40 Vital Signs - 24 hr 11/04/19 11/04/19 21:43 22:11 Temperature 97.9 F 97.9 F Pulse Rate 86 95 H Respiratory 18 18 Rate Blood Pressure 150/94 150/94 O2 Sat by Pulse 95 100 Oximetry - EKG Data -: EKG Interpreted by Me EKG shows normal: sinus rhythm Rate: normal - EKG Data When compared to previous EKG there are: no significant change 11/04/19 23:24 Sinus rhythm, 66 bpm, normal axis, normal intervals, QTC 447s milliseconds, left ventricular hypertrophy, abnormal EKG, unchanged from prior from 10/27/2019 Critical care attestation.: If time is entered above; I have spent that time in minutes in the direct care of this critically ill patient, excluding procedure time. ED Disposition Clinical Impression: Homeless, Medical clearance for psychiatric admission, Disorganized behavior Disposition: [id number] PSY HOSP/PSY UNIT Is pt being admited?: No Does the pt Need Aspirin: No Condition: Good Referrals: PRIMARY CARE, [Primary Care Provider] - 3-5 Days
[2019-11-04 23:34] LABS: Hematocrit 37.9 % (35.5-45.6); Hemoglobin 13.2 gm/dl (11.8-15.2)
[2019-11-05 00:39] LABS: BUN/Creatinine Ratio 22; Blood Urea Nitrogen 20 mg/dL (9-20); Calcium 9.3 mg/dL (8.4-10.2); Hemolysis Index 9
--- NOTE | 2019-11-05 00:54 | Cat Scan Report ---
CT HEAD WITHOUT CONTRAST INDICATION : Intoxicated. Possible closed head injury. TECHNIQUE: Axial, coronal and sagittal CT imaging was performed from the skull apex through the skul l base without contrast. All CT scans at this location are performed using CT dose reduction for ALA RA by means of automated exposure control. COMPARISON: CT head without contrast from 12/25/2017. FINDINGS: PARENCHYMA: No mass, midline shift, hemorrhage, extraaxial collection or acute territorial infarctio n. Generalized atrophy is noted without significant interval change. VENTRICLES: Enlarged secondary to atrophy. No acute abnormality. SOFT TISSUES: No significant abnormality of the included soft tissues/orbits. BONES: No acute osseous abnormality. SINUSES: Mild mucosal thickening/fluid is partially visualized along the maxillary sinuses. The remai laya sinuses are clear. The mastoid air cells are patent. ADDITIONAL FINDINGS: There is mild to moderate anterior circulation atherosclerosis. IMPRESSION: 1. No acute intracranial abnormality. 2. Additional findings as above. Signer Name: Robert Disla MD Signed: 11/05/2019 12:49 AM Workstation Name: [id number]
--- NOTE | 2019-11-05 00:57 | Cat Scan Report ---
CT CERVICAL SPINE WITHOUT CONTRAST INDICATION: Intoxication. Possible head/neck injury. COMPARISON: None available. TECHNIQUE: Axial, coronal and sagittal CT imaging of the cervical spine without contrast was performe d. All CT scans at this location are performed using CT dose reduction for ALARA by means of automat ed exposure control. FINDINGS: VERTEBRAE:No acute fracture. There is exaggeration of the cervical lordosis. DISC SPACES: Multilevel moderate to severe discogenic degenerative changes are most significant at C5 -C6 and C6-C7. FACET JOINTS:There is multilevel facet hypertrophy. CENTRAL CANAL: Mild central canal stenosis is noted at C5-C6 secondary to a disc osteophyte complex. There is multilevel bilateral neural foraminal narrowing of varying severity secondary to uncovertebr al hypertrophy. SOFT TISSUES:No significant abnormality. LUNG APICES: Emphysema is seen without an acute abnormality. ADDITIONAL FINDINGS: None IMPRESSION: 1. No acute findings. 2. Moderate to severe cervical spondylosis. Signer Name: Robert Disla MD Signed: 11/05/2019 12:52 AM Workstation Name: [id number]
[2019-11-05] MEDS ORDERED: LORazepam 2 MG/ML VIAL IM PRN (01:52)
[2019-11-05] MEDS ORDERED: HALOPERIDOL LACTATE 5 MG/1 ML INJ IM PRN (01:52)
[2019-11-05] MEDS: THIAMINE 100 MG TAB PO SCH (10:14)
[2019-11-05] MEDS: MULTIVITAMINS ,THERAPEUTIC TAB PO SCH (10:14)
[2019-11-05] MEDS: FOLIC ACID 1 MG TAB PO SCH (10:14)
[2019-11-05 13:34] LABS: Bilirubin,Urine NEG (Negative); Blood,Urine NEG (Negative); Color,Urine Yellow (Yellow); Protein,Urine <15 mg/dL mg/dL (Negative)
[2019-11-05 15:28] LABS: Hematocrit 41.6 % (35.5-45.6); Hemoglobin 14.1 gm/dl (11.8-15.2); Mean Corpuscular HGB Conc 34 % (32-34); Mean Corpuscular Volume 91 fl (84-94); Platelet Count 250 K/mm3 (140-440); Red Blood Count 4.59 M/mm3 (3.65-5.03); Red Cell Distribution Width 13.7 % (13.2-15.2)
[2019-11-05 15:55] LABS: Benzodiazepines Screen,Urine PRESUMPTIVE NEGATIVE; Cannabinoid Screen,Urine PRESUMPTIVE NEGATIVE; Cocaine Screen,Urine PRESUMPTIVE NEGATIVE; Methadone Screen,Urine PRESUMPTIVE NEGATIVE; Opiate Screen,Urine PRESUMPTIVE NEGATIVE
[2019-11-05 16:06] LABS: Amphetamine Screen,Urine PRESUMPTIVE POSITIVE
[2019-11-06] MEDS: FOLIC ACID 1 MG TAB PO SCH (10:26)
[2019-11-06] MEDS: THIAMINE 100 MG TAB PO SCH (10:26)
[2019-11-06] MEDS: MULTIVITAMINS ,THERAPEUTIC TAB PO SCH (10:26)
--- NOTE | 2019-11-06 14:28 | Consultation ---
History of Present Illness - Reason for Consult Consult date: 11/06/19 Reason for consult: psychiatric assessment - History of Present Psychiatric Illness mr gordon is a 63-year-old male, patient is noted lying in his room supine, he is alert oriented x1, he is disheveled, he maintains intermittent eye contact. The patient states, "I was brought here by my brother because I been seeing and hearing things for a long time". The patient reports a history of paranoid schizophrenia. He reports that he has not taken any medication in over a year. He reports suicidal ideation stated, "I will cut my wrists and bleed to ". The patient denies homicidal ideations the patient report that he does not sleep well because he always have a feeling as if someone is coming to hurt him. He states, "the other day I call my brother and was trying to convince him that someone was outside to get me". The patient report that he has been depressed since his sister a couple weeks ago which is making his life worse". The patient reports of constantly hearing voices telling him to hurt himself and constantly hearing whistles. Patient stated, "I just want to stop hearing voices". PAST PSYCHIATRIC HISTORY: Diagnoses: Paranoid schizophrenia Suicide attempts or Self-harm behavior denies Prior psychiatric hospitalizations denies Substance Abuse history: Marijuana Previous psychiatric medications tried: Seroquel, Paxil, Zoloft Outpatient treatment: Yes PAST MEDICAL HISTORY: Family Psychiatric History None reported or documented SOCIAL HISTORY Marital Status: Single Living Arrangements: Lives with his brother Employment Status: Unemployed Access to guns/weapons: Denies Education: [employer] History of Abuse: Denies Legal History: Denied ROS: Constitutional: Negative for weight loss ENT: Negative for stridor Respiratory: Negative for cough or hemoptysis All other systems reviewed and are negative MENTAL STATUS General Appearance and Behavior: age appropriate, limited eye contact, cooperative with questioning and polite Cooperation: Cooperative Psychomotor Behavior: within normal limits Mood: OK Affect and affective range: Congruent with stated mood Thought Process: Fluent/Logical and Goal-directed Thought Content: Within reality Speech: Normal volume and Regular rate and rhythm Intellectual Functioning Average Suicidal Ideation: cut wrist Homicidal Ideation: Denies HI Impulse Control: intact Insight and Judgment: fair Memory: Normal Attention: Normal Orientation: alert and orientedx1 RECOMMENDATIONS MEDICATIONS: Start Paxil 10 mg daily Start Seroquel 200 mg nightly Start trazodone 50 mg nightly Nicotine patch 21 mg daily Risks, benefits and alternatives of medications discussed with the patient, questions answered and consent obtained from patient. PSYCHOTHERAPY: Supportive psychotherapy provided MEDICAL: Per primary team DELIRIUM PRECAUTIONS: Please re-orient patient frequently, keep lights on during the day, and minimize benzodiazepines and opiates as these medications could worsen patient's confusion. REGISTERED DIET TECHNICIAN: DISPOSITION: indication for acute inpatient psychiatric hospitalization at this time, suicidal with psychosis LEGAL STATUS: 1013 FOLLOW-UP: Will follow Medications and Allergies Allergies Allergy/AdvReac Type Severity Reaction Status Date / Time Penicillins Allergy Anaphylaxis Verified 09/28/19 20:20 Home Medications Medication Instructions Recorded Confirmed Last Taken Type No Known Home Medications [No 10/28/19 10/28/19 Unknown History Reported Home Medications] Active Meds: Active Medications Acetaminophen (Tylenol) 650 mg PO Q6HR PRN PRN Reason: PAIN Folic Acid (Folvite) 1 mg PO QDAY [facility] Last Admin: 11/06/19 10:26 Dose: 1 mg Documented by: Haloperidol Lactate (Haldol) 5 mg IM Q6HR PRN PRN Reason: Agitation Haloperidol Lactate (Haldol) 5 mg IM Q6HR PRN PRN Reason: Agitation Lorazepam (Ativan) 2 mg IM Q4HR PRN PRN Reason: Agitation Lorazepam (Ativan) 2 mg IM Q4HR PRN PRN Reason: Agitation Multivitamins (Theragran Tab) 1 each PO QDAY [facility] Last Admin: 11/06/19 10:26 Dose: 1 each Documented by: Thiamine HCl (Vitamin B-1) 100 mg PO QDAY [facility] Last Admin: 11/06/19 10:26 Dose: 100 mg Documented by: Mental Status Exam - Vital signs Last Vital Signs Temp 98.4 F 11/06/19 08:14 Pulse 72 11/06/19 08:14 Resp 18 11/06/19 08:14 BP 120/80 11/06/19 08:14 Pulse Ox 98 11/06/19 08:14 Results Result Diagrams: 11/05/19 15:07 11/05/19 00:40 All other labs normal.
[2019-11-06] MEDS: QUEtiapine 200 MG TAB PO SCH (21:49)
[2019-11-06] MEDS: traZODone 50 MG TAB PO SCH (21:49)
[2019-11-07] MEDS: FOLIC ACID 1 MG TAB PO SCH (10:42)
[2019-11-07] MEDS: PARoxetine 10 MG TAB PO SCH (10:42)
[2019-11-07] MEDS: NICOTINE 21 MG/24 HR PATCH TD SCH (10:42)
[2019-11-07] MEDS: MULTIVITAMINS ,THERAPEUTIC TAB PO SCH (10:43)
[2019-11-07] MEDS: THIAMINE 100 MG TAB PO SCH (10:43)
[2019-11-07] MEDS: ACETAMINOPHEN 325 MG TAB PO PRN ×2 (13:58→20:16)
--- NOTE | 2019-11-07 14:02 | Progress Note ---
Subjective - Reason for Consult Consult date: 11/07/19 Reason for consult: psychiatric assessment - Chief Complaint Chief complaint: The patient's medical record was reviewed and the patient's progress was discussed with the nursing staff. The nurse note states resting comfortably on stretcher with eyes closed. no signs of respiratory distress noted During my interview with the patient this morning, the patient was in bed alert oriented x2 able to make needs known dressed appropriately maintain eye contact. The patient reports that he is suicidal thoughts come and go he does not have a plan at this time. He denies visual or auditory hallucination. The patient states, "I still believe that people are following me and watching me". The patient reports that he is not sleeping well but his appetite is good the patient report that his depression is much better today. ROS: Constitutional: Negative for weight loss ENT: Negative for stridor Respiratory: Negative for cough or hemoptysis All other systems reviewed and are negative MENTAL STATUS General Appearance and Behavior: age appropriate, limited eye contact, cooperative with questioning and polite Cooperation: Cooperative Psychomotor Behavior: within normal limits Mood: ok Affect and affective range: Congruent with stated mood Thought Process: Fluent/Logical and Goal-directed Thought Content: Within reality Speech: Normal volume and Regular rate and rhythm Intellectual Functioning Average Suicidal Ideation: cut wrist Homicidal Ideation: Denies HI Impulse Control: intact Insight and Judgment: fair Memory: Normal Attention: Normal Orientation: alert and orientedx1 RECOMMENDATIONS MEDICATIONS: continue medication on chart Risks, benefits and alternatives of medications discussed with the patient, questions answered and consent obtained from patient. PSYCHOTHERAPY: Supportive psychotherapy provided MEDICAL: Per primary team DELIRIUM PRECAUTIONS: Please re-orient patient frequently, keep lights on during the day, and minimize benzodiazepines and opiates as these medications could worsen patient's confusion. ACCOUNTING TECHNICIAN: DISPOSITION: indication for acute inpatient psychiatric hospitalization at this time, suicidal and delusional LEGAL STATUS: 1013 FOLLOW-UP: Will follow Mental Status Exam - Vital signs Last Vital Signs Temp 98.2 F 11/07/19 07:51 Pulse 65 11/07/19 07:51 Resp 18 11/07/19 07:51 BP 97/64 11/07/19 07:51 Pulse Ox 96 11/07/19 07:51
[2019-11-07] MEDS: traZODone 50 MG TAB PO SCH (22:20)
[2019-11-07] MEDS: QUEtiapine 200 MG TAB PO SCH (22:20)
[2019-11-08 07:52] VITALS: BP 98/54
[2019-11-08] MEDS: PARoxetine 10 MG TAB PO SCH (11:00)
[2019-11-08] MEDS: NICOTINE 21 MG/24 HR PATCH TD SCH (11:00)
[2019-11-08] MEDS: THIAMINE 100 MG TAB PO SCH (11:00)
[2019-11-08] MEDS: FOLIC ACID 1 MG TAB PO SCH (11:00)
[2019-11-08] MEDS: MULTIVITAMINS ,THERAPEUTIC TAB PO SCH (11:00)
== END 2019-11-08 13:44 ==
LOC: EEVIPCON 21:36 → ED 21:36
DX: F10.239 Alcohol dependence with withdrawal, unspecified (principal); M79.18 Myalgia, other site; R46.2 Strange and inexplicable behavior; I10 Essential (primary) hypertension; J44.1 Chronic obstructive pulmonary disease with (acute) exacerbation; F17.200 Nicotine dependence, unspecified, uncomplicated; F15.10 Other stimulant abuse, uncomplicated; Z59.0 Homelessness; Z88.0 Allergy status to penicillin; Z79.899 Other long term (current) drug therapy
CPT/HCPCS: 36415; 70450; 72125; 80048; 80307; 80320; 81001; 82550; 83735; 85014; 85018; 85027; 85049; 93005; 93010; G0480

== ENCOUNTER 2019-12-07 04:51 | Emergency (ER) | payer SELFPAY ==
[2019-12-07 05:21] VITALS: BP 129/87
[2019-12-07 05:38] LABS: Basophils # (Auto) 0.1 K/mm3 (0.0-0.1); Basophils % (Auto) 1.1 % (0.0-1.8); Eosinophils # (Auto) 0.1 K/mm3 (0.0-0.4); Eosinophils % (Auto) 1.3 % (0.0-4.3); Hematocrit 39.7 % (35.5-45.6); Hemoglobin 13.5 gm/dl (11.8-15.2); Lymphocytes # (Auto) 1.6 K/mm3 (1.2-5.4); Lymphocytes % (Auto) 25.3 % (13.4-35.0); Mean Corpuscular HGB Conc 34 % (32-34); Mean Corpuscular Volume 90 fl (84-94); Monocytes # (Auto) 0.7 K/mm3 (0.0-0.8); Monocytes % (Auto) 11.1 % (0.0-7.3); Platelet Count 224 K/mm3 (140-440); Red Blood Count 4.41 M/mm3 (3.65-5.03); Red Cell Distribution Width 13.6 % (13.2-15.2)
[2019-12-07 06:02] LABS: BUN/Creatinine Ratio 16; Blood Urea Nitrogen 18 mg/dL (9-20); Hemolysis Index 5
[2019-12-07 06:20] LABS: Bilirubin,Urine NEG (Negative); Blood,Urine NEG (Negative); Color,Urine Yellow (Yellow); Mucus,Urine 1+ /HPF; Sperm,Urine 3+ /HPF (NP); Urobilinogen,Urine < 2.0 mg/dL (<2.0)
[2019-12-07 06:23] LABS: Benzodiazepines Screen,Urine PRESUMPTIVE NEGATIVE; Cannabinoid Screen,Urine PRESUMPTIVE NEGATIVE; Cocaine Screen,Urine PRESUMPTIVE NEGATIVE; Methadone Screen,Urine PRESUMPTIVE NEGATIVE; Opiate Screen,Urine PRESUMPTIVE NEGATIVE
--- NOTE | 2019-12-07 06:32 | Emergency Department Report ---
HPI - General Chief Complaint: Psych Time Seen by Provider: 12/07/19 06:05 - HPI HPI: 63-year-old male presents to the emergency department via EMS from home with complaint of paranoia and visual hallucinations. The patient has a history of paranoid schizophrenia and says he has not been on his medications for "quite some time" and does not know the names of these medications. He says that he is seeing people in his room and following him that other people may say are not there. He denies any auditory hallucinations. Patient denies any suicidal or homicidal ideations. Patient is a tobacco smoker and also admits to some recent methamphetamine use about 3 to 4 days ago. He has not taken anything for his symptoms prior to presentation today he has a past medical history of asthma, COPD, hypertension, hepatitis B and chronic back pains. ED Past Medical Hx - Past Medical History Previous Medical History?: Yes Hx Hypertension: Yes Hx CVA: No Hx Heart Attack/AMI: No Hx Congestive Heart Failure: No Hx Diabetes: No Hx Deep Vein Thrombosis: No Hx Pulmonary Embolism: No Hx GERD: No Hx Liver Disease: No Hx Renal Disease: No Hx Sickle Cell Disease: No Hx Arthritis: No Hx Headaches / Migraines: No Hx Seizures: Yes Hx Kidney Stones: No Hx Psychiatric Treatment: Yes (states "I can't remember" to most questions) Hx Asthma: Yes Hx COPD: Yes Hx Tuberculosis: No Hx Dementia: No Hx HIV: No Additional medical history: Hep B, Bronchitis and chronic back pain - Surgical History Hx Coronary Stent: No Hx Open Heart Surgery: No Hx Pacemaker: No Hx Internal Defibrillator: No Hx Cholecystectomy: No Hx Appendectomy: No Hx Breast Surgery: No - Social History Smoking Status: Current Every Day Smoker - Medications Home Medications: Home Medications Medication Instructions Recorded Confirmed Last Taken Type No Known Home Medications [No 10/28/19 10/28/19 Unknown History Reported Home Medications] ED Review of Systems ROS: Stated complaint: MH EVAL Other details as noted in HPI Comment: All other systems reviewed and negative Constitutional: denies: chills, fever Respiratory: denies: cough, shortness of breath Cardiovascular: denies: chest pain Gastrointestinal: denies: abdominal pain Skin: denies: rash, lesions Neurological: denies: headache, weakness Psychiatric: visual hallucinations, other (Paranoia). denies: auditory hallucinations, homicidal thoughts, suicidal thoughts Physical Exam - Physical Exam Vital Signs: Vital Signs 12/07/19 03 05:14 06:14 Temperature 97.7 F Pulse Rate 74 Respiratory 20 20 Rate Blood Pressure 129/87 [Right] O2 Sat by Pulse 98 98 Oximetry Physical Exam: GENERAL: The patient is well-developed well-nourished. HENT: Normocephalic. Atraumatic. Patient has moist mucous membranes. EYES: Extraocular motions are intact. NECK: Supple. Trachea is midline. CHEST/LUNGS: Clear to auscultation. There is no respiratory distress noted. HEART/CARDIOVASCULAR: Regular. There is no tachycardia. There is no murmur. ABDOMEN: Abdomen is soft, nontender. Patient has normal bowel sounds. SKIN: Skin is warm and dry. NEURO: The patient is awake, alert, and oriented. The patient is cooperative. The patient has no focal neurologic deficits. Normal speech. MUSCULOSKELETAL: There is no tenderness or deformity. There is no evidence of acute injury. ED Course Vital Signs 12/07/19 12/07/19 05:14 06:14 Temperature 97.7 F Pulse Rate 74 Respiratory 20 20 Rate Blood Pressure 129/87 [Right] O2 Sat by Pulse 98 98 Oximetry ED Medical Decision Making - Lab Data Result diagrams: 12/07/19 05:19 12/07/19 05:19 - Medical Decision Making This patient presents to the emergency department for a mental health evaluation secondary to some visual hallucinations and paranoia. At the time of my examination the patient is resting and is calm and appropriate. He does admit to having these hallucinations and paranoia but denies any command hallucinations, suicidal or homicidal ideations. Patient's labs are mostly unremarkable except for urine drug screen positive for amphetamines and the patient does admit to some recent methamphetamine use. The patient does not appear to meet criteria to be made a 1013 or require involuntary inpatient psychiatric admission. However the patient was being held in the emergency department so that he could receive a mental health evaluation from the psychiatric party coordinator. However, prior to this occurring, the patient decided he no longer wanted to be in the emergency department and eloped. - Differential Diagnosis Bipolar disorder, schizoaffective, schizophrenia, substance abuse Critical Care Time: No Critical care attestation.: If time is entered above; I have spent that time in minutes in the direct care of this critically ill patient, excluding procedure time. ED Disposition Clinical Impression: Paranoia Disposition: Z-07 ELOPED Is pt being admited?: No Condition: Stable Time of Disposition: 12:46
[2019-12-07 06:58] LABS: Amphetamine Screen,Urine PRESUMPTIVE POSITIVE
== END 2019-12-07 10:00 | disposition left against medical advice (07) ==
LOC: ED 04:51
DX: F20.0 Paranoid schizophrenia (principal); I10 Essential (primary) hypertension; R56.9 Unspecified convulsions; J44.9 Chronic obstructive pulmonary disease, unspecified; F17.200 Nicotine dependence, unspecified, uncomplicated; Z88.0 Allergy status to penicillin
CPT/HCPCS: 36415; 80048; 80307; 80320; 81001; 85025; G0480

== ENCOUNTER 2019-12-15 02:51 | Emergency (ER) | payer SELFPAY ==
[2019-12-15 04:42] LABS: Basophils # (Auto) 0.1 K/mm3 (0.0-0.1); Basophils % (Auto) 1.9 % (0.0-1.8); Eosinophils # (Auto) 0.2 K/mm3 (0.0-0.4); Eosinophils % (Auto) 3.1 % (0.0-4.3); Hematocrit 38.3 % (35.5-45.6); Hemoglobin 12.9 gm/dl (11.8-15.2); Lymphocytes # (Auto) 1.6 K/mm3 (1.2-5.4); Lymphocytes % (Auto) 28.9 % (13.4-35.0); Mean Corpuscular HGB Conc 34 % (32-34); Mean Corpuscular Volume 90 fl (84-94); Monocytes # (Auto) 0.6 K/mm3 (0.0-0.8); Monocytes % (Auto) 10.8 % (0.0-7.3); Platelet Count 255 K/mm3 (140-440); Red Blood Count 4.27 M/mm3 (3.65-5.03)
--- NOTE | 2019-12-15 04:49 | XRay Report ---
CHEST 1 VIEW INDICATION / CLINICAL INFORMATION: CP. COMPARISON: 10/27/2019 FINDINGS: SUPPORT DEVICES: None. HEART / MEDIASTINUM: No significant abnormality. LUNGS / PLEURA: No significant pulmonary or pleural abnormality. No pneumothorax. ADDITIONAL FINDINGS: No significant additional findings. IMPRESSION: No acute disease or interval change from 10/27/2019 Signer Name: Misha Quiñones MD FACR Signed: 12/15/2019 4:45 AM Workstation Name: [id number]
[2019-12-15 05:03] LABS: Alanine Aminotransferase 18 units/L (7-56); Albumin 3.9 g/dL (3.9-5); BUN/Creatinine Ratio 19; Blood Urea Nitrogen 19 mg/dL (9-20); Calcium 9.4 mg/dL (8.4-10.2); Hemolysis Index 5
--- NOTE | 2019-12-15 06:57 | Emergency Department Report ---
ED Chest Pain HPI - General Chief Complaint: Chest Pain Stated Complaint: CHEST PAIN Time Seen by Provider: 12/15/19 06:13 Source: patient, EMS Mode of arrival: Stretcher Limitations: No Limitations - History of Present Illness Initial Comments: 63-year-old male presents to ED reporting chest pain x2 to 3 days. States worse with deep breath. Patient also reports he is short of breath. Patient states he has a history of COPD, believes symptoms are due to COPD. States he does not have an inhaler at home. Patient is currently asleep on the stretcher, with the blanket over his head. Took several attempts were made to get him to remove the blanket from his head to answer my questions. Patient is A&O x3 MD Complaint: chest pain -: days(s) (3) Onset: during rest Pain Location: left chest Pain Radiation: none Severity: mild Severity scale (0 -10): 10 Quality: tightness Consistency: intermittent Improves With: nothing Worsens With: other (deep breath) re: dyspnea. denies: nausea, vomting, diaphoresis Other Symptoms: cough. denies: fever Treatments Prior to Arrival: none - Related Data Previous Rx's Medication Instructions Recorded Last Taken Type Albuterol Sulfate [Proventil Hfa] 2 puff IH Q4HR PRN #1 [email or web address] 12/15/19 Unknown Rx Allergies Allergy/AdvReac Type Severity Reaction Status Date / Time Penicillins Allergy Anaphylaxis Verified 09/28/19 20:20 Heart Score - HEART Score History: Slightly suspicious EKG: Non-specific Age: 45-65 Risk factors: 1-2 risk factors Troponin: < normal limit HEART Score: 3 ED Review of Systems ROS: Stated complaint: CHEST PAIN Other details as noted in HPI Comment: All other systems reviewed and negative Constitutional: denies: fever Respiratory: cough, shortness of breath Cardiovascular: chest pain ED Past Medical Hx - Past Medical History Previous Medical History?: Yes Hx Hypertension: Yes Hx CVA: No Hx Heart Attack/AMI: No Hx Congestive Heart Failure: No Hx Diabetes: No Hx Deep Vein Thrombosis: No Hx Pulmonary Embolism: No Hx GERD: No Hx Liver Disease: No Hx Renal Disease: No Hx Sickle Cell Disease: No Hx Arthritis: No Hx Headaches / Migraines: No Hx Seizures: Yes Hx Kidney Stones: No Hx Psychiatric Treatment: Yes (schizophrenia) Hx Asthma: Yes Hx COPD: Yes Hx Tuberculosis: No Hx Dementia: No Hx HIV: No Additional medical history: Hep B, Bronchitis and chronic back pain - Surgical History Past Surgical History?: No Hx Coronary Stent: No Hx Open Heart Surgery: No Hx Pacemaker: No Hx Internal Defibrillator: No Hx Cholecystectomy: No Hx Appendectomy: No Hx Breast Surgery: No - Social History Smoking Status: Current Every Day Smoker - Medications Home Medications: Home Medications Medication Instructions Recorded Confirmed Last Taken Type Albuterol Sulfate [Proventil Hfa] 2 puff IH Q4HR PRN #1 [email or web address] 12/15/19 Unknown Rx ED Physical Exam - General Limitations: No Limitations General appearance: alert, in no apparent distress, other (appears unkempt) - Head Head exam: Present: atraumatic, normocephalic - Eye Eye exam: Present: normal appearance, EOMI - ENT ENT exam: Present: mucous membranes moist - Neck Neck exam: Present: normal inspection - Respiratory Respiratory exam: Present: normal lung sounds bilaterally. Absent: respiratory distress, wheezes, rales - Cardiovascular Cardiovascular Exam: Present: regular rate, normal rhythm - GI/Abdominal GI/Abdominal exam: Absent: distended - Extremities Exam Extremities exam: Present: normal inspection. Absent: pedal edema, calf tenderness - Neurological Exam Neurological exam: Present: alert, oriented X3 - Psychiatric Psychiatric exam: Present: normal affect, normal mood - Skin Skin exam: Present: warm, dry, intact, normal color ED Course Vital Signs 12/15/19 12/15/19 12/15/19 02:57 06:13 08:45 Temperature 98.3 F 97.7 F Pulse Rate 74 82 67 Respiratory 20 16 15 Rate Blood Pressure 138/95 131/83 147/101 [Left] O2 Sat by Pulse 95 95 96 Oximetry ELIA score - Elia Score Age > 65: (0) No Aspirin use within the Past 7 Days: (0) No 3 or more CAD Risk Factors: (0) No 2 or more Angina events in past 24 hrs: (0) No Known CAD with more than 50% Stenosis: (0) No Elevated Cardiac Markers: (0) No ST Deviation Greater than 0.5mm: (0) No ELAI Score: 0 ED Medical Decision Making - Lab Data Result diagrams: 12/15/19 04:25 12/15/19 04:25 - EKG Data -: EKG Interpreted by Me EKG shows normal: sinus rhythm, axis, intervals, QRS complexes Rate: normal - EKG Data Interpretation: no acute changes, nonspecific ST-T wave nathan - Radiology Data Radiology results: report reviewed, image reviewed - Medical Decision Making - chest pain, SOB reported - pt nontoxic-appearing, comfortable, no resp distress - vitals nml, including O2 sats, pt afebrile - CXR normal - EKG unremarkable, trop negative x 2 - PE unlikely; pt w/ normal vitals, not tachycardic, not tachypneic, not hypoxic, no calf tenderness - will d/c home at this time w/ rx for inhaler - oupt f/u advised - Differential Diagnosis COPD, ACS, pneumonia Critical care attestation.: If time is entered above; I have spent that time in minutes in the direct care of this critically ill patient, excluding procedure time. ED Disposition Clinical Impression: Chest pain Disposition: DC-01 TO HOME OR SELFCARE Is pt being admited?: No Condition: Stable Instructions: Chest Pain (ED) Prescriptions: Albuterol Sulfate [Proventil Hfa] 2 puff IH Q4HR PRN #1 [email or web address] PRN Reason: Wheezing Referrals: PRIMARY CARE, [Primary Care Provider] - 3-5 Days [facility] [Provider Group] - 3-5 Days
[2019-12-15 08:45] VITALS: BP 147/101
== END 2019-12-15 08:47 | disposition home or self-care (01) ==
LOC: ED 02:51
DX: R07.89 Other chest pain (principal); R06.02 Shortness of breath; F17.200 Nicotine dependence, unspecified, uncomplicated; F20.89 Other schizophrenia; J44.1 Chronic obstructive pulmonary disease with (acute) exacerbation; I10 Essential (primary) hypertension
CPT/HCPCS: 36415; 71045; 80053; 80320; 84484; 85025; 93005; 93010; G0480

== ENCOUNTER 2021-02-23 19:03 | Emergency (ER) | payer SELFPAY ==
[2021-02-23 21:13] LABS: BUN/Creatinine Ratio 15; Blood Urea Nitrogen 12 mg/dL (9-20); Calcium 8.9 mg/dL (8.4-10.2); Hemolysis Index 10
[2021-02-23 21:55] LABS: Bilirubin,Urine NEG (Negative); Blood,Urine NEG (Negative); Color,Urine Yellow (Yellow); Protein,Urine <15 mg/dL mg/dL (Negative); Urobilinogen,Urine < 2.0 mg/dL (<2.0)
[2021-02-23 22:01] LABS: Benzodiazepines Screen,Urine Negative; Cannabinoid Screen,Urine Negative; Cocaine Screen,Urine Negative; Methadone Screen,Urine Negative; Opiate Screen,Urine Negative
[2021-02-23 22:13] LABS: Amphetamine Screen,Urine Positive
[2021-02-23] MEDS ORDERED: SODIUM CHLORIDE 0.9% 1000 ML 1,000 ML IV ONE (22:58)
[2021-02-23 23:16] LABS: Basophils % (Auto) 0.3 % (0.0-1.8); Eosinophils # (Auto) 0.1 K/mm3 (0.0-0.4); Lymphocytes # (Auto) 2.7 K/mm3 (1.2-5.4); Lymphocytes % (Auto) 26.3 % (13.4-35.0); Mean Corpuscular HGB Conc 36 % (32-34); Mean Corpuscular Volume 88 fl (84-94); Monocytes % (Auto) 9.4 % (0.0-7.3); Platelet Count 257 K/mm3 (140-440); Red Cell Distribution Width 12.8 % (13.2-15.2)
--- NOTE | 2021-02-23 23:17 | Emergency Department Report ---
HPI - General Chief Complaint: Psych Time Seen by Provider: 02/23/21 22:45 - HPI HPI: This is a 65-year-old male who presents to the emergency department for a mental health evaluation. The patient says that he is feeling depressed and has been having suicidal thoughts. He does not have any particular plan as to how he would harm himself. He denies any current hallucinations or any homicidal ideations. The patient is also interested in getting detox from methamphetamine and alcohol use/abuse. He last drank alcohol about 24 hours ago. He has a history of schizophrenia and admits to noncompliance with his medication. He does have a medical history of COPD, seizures, hypertension and hepatitis B. He denies any current fever, chest pain, shortness of breath, headache, vision change, slurred speech, numbness or paresthesias. ED Past Medical Hx - Past Medical History Previous Medical History?: Yes Hx Hypertension: Yes Hx CVA: No Hx Heart Attack/AMI: No Hx Congestive Heart Failure: No Hx Diabetes: No Hx Deep Vein Thrombosis: No Hx Pulmonary Embolism: No Hx GERD: No Hx Liver Disease: No Hx Renal Disease: No Hx Sickle Cell Disease: No Hx Arthritis: No Hx Headaches / Migraines: No Hx Seizures: Yes Hx Kidney Stones: No Hx Psychiatric Treatment: Yes (states "I can't remember" to most questions) Hx Asthma: Yes Hx COPD: Yes Hx Tuberculosis: No Hx Dementia: No Hx HIV: No Additional medical history: Hep B, Bronchitis and chronic back pain - Surgical History Past Surgical History?: No Hx Coronary Stent: No Hx Open Heart Surgery: No Hx Pacemaker: No Hx Internal Defibrillator: No Hx Cholecystectomy: No Hx Appendectomy: No Hx Breast Surgery: No - Social History Smoking Status: Current Every Day Smoker Substance Use Type: Cocaine, Marijuana - Medications Home Medications: Home Medications Medication Instructions Recorded Confirmed Last Taken Type Albuterol Sulfate [Proventil Hfa] 2 puff IH Q4HR PRN #1 [email or web address] 12/15/19 Unknown Rx ED Review of Systems ROS: Stated complaint: DETOX Other details as noted in HPI Comment: All other systems reviewed and negative Constitutional: denies: chills, fever Eyes: denies: eye pain, vision change ENT: denies: ear pain, throat pain Respiratory: denies: cough, shortness of breath Cardiovascular: denies: chest pain, palpitations Gastrointestinal: denies: abdominal pain, vomiting Genitourinary: denies: dysuria, discharge Musculoskeletal: denies: joint swelling, arthralgia Neurological: denies: headache, weakness, numbness, paresthesias Psychiatric: depression, suicidal thoughts. denies: homicidal thoughts Physical Exam - Physical Exam Vital Signs: Vital Signs 02/23/21 20:26 Temperature 98.3 F Pulse Rate 79 Respiratory 18 Rate Blood Pressure 171/105 O2 Sat by Pulse 97 Oximetry Physical Exam: GENERAL: The patient is well-developed well-nourished. HENT: Normocephalic. Atraumatic. Patient has moist mucous membranes. EYES: Extraocular motions are intact. NECK: Supple. Trachea is midline. CHEST/LUNGS: Clear to auscultation. There is no respiratory distress noted. HEART/CARDIOVASCULAR: Regular. There is no tachycardia. There is no murmur. ABDOMEN: Abdomen is soft, nontender. Patient has normal bowel sounds. SKIN: Skin is warm and dry. NEURO: The patient is awake, alert, and oriented. The patient is cooperative. Normal speech. MUSCULOSKELETAL: There is no tenderness or deformity. There is no limitation range of motion. ED Course Vital Signs 02/23/21 20:26 Temperature 98.3 F Pulse Rate 79 Respiratory 18 Rate Blood Pressure 171/105 O2 Sat by Pulse 97 Oximetry ED Medical Decision Making - Lab Data Result diagrams: 02/23/21 23:00 02/24/21 00:47 Lab Results 02/23/21 02/23/21 02/23/21 Range/Units 20:34 20:34 20:34 WBC (4.5-11.0) K/mm3 RBC (3.65-5.03) M/mm3 Hgb (11.8-15.2) gm/dl Hct (35.5-45.6) % MCV (84-94) fl MCH (28-32) pg MCHC (32-34) % RDW (13.2-15.2) % Plt Count (140-440) K/mm3 Lymph % (Auto) (13.4-35.0) % [place] % (Auto) (0.0-7.3) % Eos % (Auto) (0.0-4.3) % Baso % (Auto) (0.0-1.8) % Lymph # (Auto) (1.2-5.4) K/mm3 [place] # (Auto) (0.0-0.8) K/mm3 Eos # (Auto) (0.0-0.4) K/mm3 Baso # (Auto) (0.0-0.1) K/mm3 Seg Neutrophils % (40.0-70.0) % Seg Neutrophils # (1.8-7.7) K/mm3 Sodium 128 L (137-145) mmol/L Potassium 3.9 (3.6-5.0) mmol/L Chloride 90.1 L (98-107) mmol/L Carbon Dioxide 26 (22-30) mmol/L Anion Gap 16 mmol/L BUN 12 (9-20) mg/dL Creatinine 0.8 (0.8-1.3) mg/dL Estimated GFR > 60 ml/min BUN/Creatinine Ratio 15 % Glucose 93 (75-100) mg/dL Calcium 8.9 (8.4-10.2) mg/dL Urine Color (Yellow) Urine Turbidity (Clear) Urine pH (5.0-7.0) Ur Specific [place] (1.003-1.030) Urine Protein (Negative) mg/dL Urine Glucose (UA) (Negative) mg/dL Urine Ketones (Negative) mg/dL Urine Blood (Negative) Urine Nitrite (Negative) Urine Bilirubin (Negative) Urine Urobilinogen (<2.0) mg/dL Ur Leukocyte Esterase (Negative) Urine WBC (Auto) (0.0-6.0) /HPF Urine RBC (Auto) (0.0-6.0) /HPF Salicylates < 0.3 L (2.8-20.0) mg/dL Urine Opiates Screen Urine Methadone Screen Acetaminophen 5.0 L (10.0-30.0) ug/mL Ur Barbiturates Screen Ur Phencyclidine Scrn Ur Amphetamines Screen U Benzodiazepines Scrn Urine Cocaine Screen U Marijuana (THC) Screen Drugs of Abuse Note Plasma/Serum Alcohol (0-0.07) % 02/23/21 02/23/21 02/23/21 Range/Units 20:34 23:00 Unknown WBC 10.4 (4.5-11.0) K/mm3 RBC 4.30 (3.65-5.03) M/mm3 Hgb 13.6 (11.8-15.2) gm/dl Hct 37.6 (35.5-45.6) % MCV 88 (84-94) fl MCH 32 (28-32) pg MCHC 36 H (32-34) % RDW 12.8 L (13.2-15.2) % Plt Count 257 (140-440) K/mm3 Lymph % (Auto) 26.3 (13.4-35.0) % [place] % (Auto) 9.4 H (0.0-7.3) % Eos % (Auto) 1.0 (0.0-4.3) % Baso % (Auto) 0.3 (0.0-1.8) % Lymph # (Auto) 2.7 (1.2-5.4) K/mm3 [place] # (Auto) 1.0 H (0.0-0.8) K/mm3 Eos # (Auto) 0.1 (0.0-0.4) K/mm3 Baso # (Auto) 0.0 (0.0-0.1) K/mm3 Seg Neutrophils % 63.0 (40.0-70.0) % Seg Neutrophils # 6.5 (1.8-7.7) K/mm3 Sodium (137-145) mmol/L Potassium (3.6-5.0) mmol/L Chloride (98-107) mmol/L Carbon Dioxide (22-30) mmol/L Anion Gap mmol/L BUN (9-20) mg/dL Creatinine (0.8-1.3) mg/dL Estimated GFR ml/min BUN/Creatinine Ratio % Glucose (75-100) mg/dL Calcium (8.4-10.2) mg/dL Urine Color Yellow (Yellow) Urine Turbidity Clear (Clear) Urine pH 6.0 (5.0-7.0) Ur Specific [place] 1.004 (1.003-1.030) Urine Protein <15 mg/dl (Negative) mg/dL Urine Glucose (UA) Neg (Negative) mg/dL Urine Ketones Neg (Negative) mg/dL Urine Blood Neg (Negative) Urine Nitrite Neg (Negative) Urine Bilirubin Neg (Negative) Urine Urobilinogen < 2.0 (<2.0) mg/dL Ur Leukocyte Esterase Neg (Negative) Urine WBC (Auto) 1.0 (0.0-6.0) /HPF Urine RBC (Auto) 1.0 (0.0-6.0) /HPF Salicylates (2.8-20.0) mg/dL Urine Opiates Screen Urine Methadone Screen Acetaminophen (10.0-30.0) ug/mL Ur Barbiturates Screen Ur Phencyclidine Scrn Ur Amphetamines Screen U Benzodiazepines Scrn Urine Cocaine Screen U Marijuana (THC) Screen Drugs of Abuse Note Plasma/Serum Alcohol < 0.01 (0-0.07) % 02/23/21 02/24/21 Range/Units Unknown 00:47 WBC (4.5-11.0) K/mm3 RBC (3.65-5.03) M/mm3 Hgb (11.8-15.2) gm/dl Hct (35.5-45.6) % MCV (84-94) fl MCH (28-32) pg MCHC (32-34) % RDW (13.2-15.2) % Plt Count (140-440) K/mm3 Lymph % (Auto) (13.4-35.0) % [place] % (Auto) (0.0-7.3) % Eos % (Auto) (0.0-4.3) % Baso % (Auto) (0.0-1.8) % Lymph # (Auto) (1.2-5.4) K/mm3 [place] # (Auto) (0.0-0.8) K/mm3 Eos # (Auto) (0.0-0.4) K/mm3 Baso # (Auto) (0.0-0.1) K/mm3 Seg Neutrophils % (40.0-70.0) % Seg Neutrophils # (1.8-7.7) K/mm3 Sodium 133 L (137-145) mmol/L Potassium 3.7 (3.6-5.0) mmol/L Chloride 96.8 L (98-107) mmol/L Carbon Dioxide 25 (22-30) mmol/L Anion Gap 15 mmol/L BUN 12 (9-20) mg/dL Creatinine 0.8 (0.8-1.3) mg/dL Estimated GFR > 60 ml/min BUN/Creatinine Ratio 15 % Glucose 129 H (75-100) mg/dL Calcium 8.4 (8.4-10.2) mg/dL Urine Color (Yellow) Urine Turbidity (Clear) Urine pH (5.0-7.0) Ur Specific [place] (1.003-1.030) Urine Protein (Negative) mg/dL Urine Glucose (UA) (Negative) mg/dL Urine Ketones (Negative) mg/dL Urine Blood (Negative) Urine Nitrite (Negative) Urine Bilirubin (Negative) Urine Urobilinogen (<2.0) mg/dL Ur Leukocyte Esterase (Negative) Urine WBC (Auto) (0.0-6.0) /HPF Urine RBC (Auto) (0.0-6.0) /HPF Salicylates (2.8-20.0) mg/dL Urine Opiates Screen Negative Urine Methadone Screen Negative Acetaminophen (10.0-30.0) ug/mL Ur Barbiturates Screen Negative Ur Phencyclidine Scrn Negative Ur Amphetamines Screen Positive U Benzodiazepines Scrn Negative Urine Cocaine Screen Negative U Marijuana (THC) Screen Negative Drugs of Abuse Note Disclamer Plasma/Serum Alcohol (0-0.07) % - Medical Decision Making This patient presents to the emergency department with a complaint of suicidal ideations, as well as requesting detox from methamphetamines and alcohol. He does not appear acutely intoxicated. The patient was made a 1013 and placed on ED hold secondary to the suicidal ideations. The patient's initial labs were mostly unremarkable except for hyponatremia with a sodium level of 128 and urine drug screen is positive for amphetamines. The patient was given a liter of IV fluid and the repeat BMP showed a sodium level of 133. The hyponatremia is most likely secondary to the patient's chronic beer drinking. The patient presented with some elevated blood pressure with a history of hypertension and medication noncompliance. His blood pressure came down to a much more reasonable level with 1 dose of hydralazine. At this time the patient appears medically cleared for psychiatric placement. Critical Care Time: No Critical care attestation.: If time is entered above; I have spent that time in minutes in the direct care of this critically ill patient, excluding procedure time. ED Disposition Clinical Impression: Suicidal ideations, Hyponatremia Disposition: DC/TX-65 PSY HOSP/PSY UNIT Is pt being admited?: No Condition: Stable Time of Disposition: 03:03
[2021-02-23 23:42] LABS: Hematocrit 37.6 % (35.5-45.6); Hemoglobin 13.6 gm/dl (11.8-15.2)
[2021-02-23] MEDS ORDERED: hydrALAZINE 20 MG/1 ML INJ IV ONE (23:48)
[2021-02-24 01:28] LABS: BUN/Creatinine Ratio 15; Blood Urea Nitrogen 12 mg/dL (9-20); Calcium 8.4 mg/dL (8.4-10.2); Hemolysis Index 9
[2021-02-24 09:11] VITALS: BP 126/78
[2021-02-24] MEDS ORDERED: NICOTINE 14 MG/24 HR PATCH TD ONE (09:14)
--- NOTE | 2021-02-24 10:42 | Event Note ---
S: sleeping O: stable vital signs A: Schizophrenia, medication noncompliance, patient is medically clear for psychiatric care P: Awaiting treatment recommendations by psychiatric team
--- NOTE | 2021-02-24 10:56 | Consultation ---
History of Present Illness - Reason for Consult Consult date: 02/24/21 Reason for consult: SI - History of Present Psychiatric Illness Daniel Lewis is a 65y/o male patient who states he was kicked out of the house with his brother. The patient says "I'm here because I told a lie. I told them we were smoking meth." He says "now I'm homeless. He kicked me out." The p atient says he has a history of depression and takes zoloft. He denies SI/HI. He says "I was at first. I was upset about what happened." He denies hallucinations of any kind. PAST PSYCHIATRIC HISTORY: Diagnoses: Depression Suicide attempts or Self-harm behavior: None reported Prior psychiatric hospitalizations: Yes Substance Abuse history: "Meth" Previous psychiatric medications tried: Zoloft Outpatient treatment: Yes PAST MEDICAL HISTORY: None reported Family Psychiatric History: None reported or documented SOCIAL HISTORY Marital Status: single Living Arrangements: was living with brother, now homeless Employment Status: Unemployed Access to guns/weapons: Denies Education: Some high school History of Abuse: None reported Legal History: None reported REVIEW OF SYSTEMS Constitutional: Negative for weight loss ENT: Negative for stridor Respiratory: Negative for cough or hemoptysis All other systems reviewed and are negative MENTAL STATUS EXAMINATION General Appearance and Behavior: Age appropriate, good hygiene, not wearing appr opriate clothes, good eye contact, cooperative polite with questioning. Cooperation: Participating/engaged Psychomotor Behavior: Psychomotor agitation Mood: okay Affect and affective range: Congruent with stated mood Thought Process: goal directed Thought Content: None Speech: Normal tone and pace Intellectual Functioning: Average Suicidal Ideation: Denies SI Homicidal Ideation: Denies HI Hallucinations: Denies Delusions: None elicited Impulse Control: Impaired Insight and Judgment: Limited insight and judgment Memory: Normal Attention: Undivided attention impaired Orientation: Alert, oriented, Assessment and Plan (1) Methamphetamine Dependence with Substance Induced Mood Current Visit: Yes Status: Acute Treatment Plan d/c 1013 Continue previously prescribed medications Sitter: Per primary Medical: Per primary Disposition: Do not recommend acute psychiatric inpatient treatment Will sing off. Thank you Case staffed with Dr. Carrero Medications and Allergies Allergies Allergy/AdvReac Type Severity Reaction Status Date / Time Penicillins Allergy Anaphylaxis Verified 09/28/19 20:20 Home Medications Medication Instructions Recorded Confirmed Last Taken Type Albuterol Sulfate [Proventil Hfa] 2 puff IH Q4HR PRN #1 [email or web address] 12/15/19 Unknown Rx Mental Status Exam - Vital signs Last Vital Signs Temp 97.5 F L 02/24/21 04:20 Pulse 74 02/24/21 09:02 Resp 20 02/24/21 09:02 BP 126/78 02/24/21 09:02 Pulse Ox 91 02/24/21 09:02 Results Result Diagrams: 02/23/21 23:00 02/24/21 00:47 Abnormal lab results 02/23/21 02/23/21 02/23/21 Range/Units 20:34 20:34 20:34 MCHC (32-34) % RDW (13.2-15.2) % [place] % (Auto) (0.0-7.3) % [place] # (Auto) (0.0-0.8) K/mm3 Sodium 128 L (137-145) mmol/L Chloride 90.1 L (98-107) mmol/L Glucose (75-100) mg/dL Salicylates < 0.3 L (2.8-20.0) mg/dL Acetaminophen 5.0 L (10.0-30.0) ug/mL 02/23/21 02/24/21 Range/Units 23:00 00:47 MCHC 36 H (32-34) % RDW 12.8 L (13.2-15.2) % [place] % (Auto) 9.4 H (0.0-7.3) % [place] # (Auto) 1.0 H (0.0-0.8) K/mm3 Sodium 133 L (137-145) mmol/L Chloride 96.8 L (98-107) mmol/L Glucose 129 H (75-100) mg/dL Salicylates (2.8-20.0) mg/dL Acetaminophen (10.0-30.0) ug/mL All other labs normal.
== END 2021-02-24 13:00 | disposition home or self-care (01) ==
LOC: ED 19:03
DX: R45.851 Suicidal ideations (principal); E87.1 Hypo-osmolality and hyponatremia; F17.200 Nicotine dependence, unspecified, uncomplicated; F14.90 Cocaine use, unspecified, uncomplicated; F12.90 Cannabis use, unspecified, uncomplicated; I10 Essential (primary) hypertension; J44.9 Chronic obstructive pulmonary disease, unspecified; Z86.69 Personal history of other diseases of the nervous system and sense organs; Z98.890 Other specified postprocedural states
CPT/HCPCS: 36415; 80048; 80307; 81001; 85025; 96361; 96374; 99284; J0360; J7030; 80320; G0480

== ENCOUNTER 2021-03-31 01:12 | Emergency (ER) | payer SELFPAY ==
--- NOTE | 2021-03-31 01:59 | Emergency Department Report ---
ED General Adult HPI - General Chief complaint: Pain General Stated complaint: BODY PAIN Time Seen by Provider: 03/31/21 01:39 Source: EMS Mode of arrival: Stretcher Limitations: No Limitations - History of Present Illness Initial comments: Patient is a 65-year-old male who presents emergency room with complaints of generalized pain. Patient states his body is hurting. Patient normal over a year. Patient states that he also needs a place to sleep. Patient denies chest pain or shortness of breath. Patient states he has a history of COPD and still smokes. Patient denies fever or chills. Patient denies cough. Patient denies wheezing. Patient denies trauma. Patient denies fall or injury. Patient denies headache. Patient denies blurry vision. Patient denies recent travel. Patient denies recent international travel. Patient denies exposure to the novel coronavirus. Patient denies sick contacts. Patient denies fever and chills. Patient denies cough. Patient denies diarrhea. Patient denies coming in contact with anybody with symptoms of the novel coronavirus. -: year(s) Severity scale (0 -10): 10 Quality: stabbing Improves with: rest Worsens with: movement Associated Symptoms: denies: confusion, chest pain, cough, diaphoresis, headaches, loss of appetite, malaise, nausea/vomiting, rash, seizure, shortness of breath, syncope, weakness Treatments Prior to Arrival: none - Related Data Previous Rx's Medication Instructions Recorded Last Taken Type Albuterol Sulfate [Proventil Hfa] 2 puff IH Q4HR PRN #1 hfa.aer.ad 12/15/19 Unknown Rx Allergies Allergy/AdvReac Type Severity Reaction Status Date / Time Penicillins Allergy Anaphylaxis Verified 09/28/19 20:20 ED Review of Systems ROS: Stated complaint: BODY PAIN Other details as noted in HPI Constitutional: denies: chills, fever Eyes: denies: eye pain, eye discharge, vision change ENT: denies: ear pain, throat pain Respiratory: denies: cough, shortness of breath, wheezing Cardiovascular: denies: chest pain, palpitations Endocrine: no symptoms reported Gastrointestinal: denies: abdominal pain, nausea, diarrhea Genitourinary: denies: urgency, dysuria Musculoskeletal: denies: back pain, joint swelling, arthralgia Skin: denies: rash, lesions Neurological: denies: headache, weakness, paresthesias Psychiatric: denies: anxiety, depression Hematological/Lymphatic: denies: easy bleeding, easy bruising ED Past Medical Hx - Past Medical History Previous Medical History?: Yes Hx Hypertension: Yes Hx CVA: No Hx Heart Attack/AMI: No Hx Congestive Heart Failure: No Hx Diabetes: No Hx Deep Vein Thrombosis: No Hx Pulmonary Embolism: No Hx GERD: No Hx Liver Disease: No Hx Renal Disease: No Hx Sickle Cell Disease: No Hx Arthritis: No Hx Headaches / Migraines: No Hx Seizures: Yes Hx Kidney Stones: No Hx Psychiatric Treatment: Yes (states "I can't remember" to most questions) Hx Asthma: Yes Hx COPD: Yes Hx Tuberculosis: No Hx Dementia: No Hx HIV: No Additional medical history: Hep B, Bronchitis and chronic back pain - Surgical History Hx Coronary Stent: No Hx Open Heart Surgery: No Hx Pacemaker: No Hx Internal Defibrillator: No Hx Cholecystectomy: No Hx Appendectomy: No Hx Breast Surgery: No - Family History Family history: no significant - Social History Smoking Status: Current Every Day Smoker Substance Use Type: Alcohol, Methamphetamines - Medications Home Medications: Home Medications Medication Instructions Recorded Confirmed Last Taken Type Albuterol Sulfate [Proventil Hfa] 2 puff IH Q4HR PRN #1 hfa.aer.ad 12/15/19 Unknown Rx ED Physical Exam - General Limitations: No Limitations General appearance: alert, in no apparent distress - Head Head exam: Present: atraumatic, normocephalic - Eye Eye exam: Present: normal appearance - ENT ENT exam: Present: mucous membranes moist - Neck Neck exam: Present: normal inspection - Respiratory Respiratory exam: Present: normal lung sounds bilaterally. Absent: respiratory distress, wheezes, rales - Cardiovascular Cardiovascular Exam: Present: regular rate, normal rhythm. Absent: systolic murmur, diastolic murmur, rubs, gallop - GI/Abdominal GI/Abdominal exam: Present: soft, normal bowel sounds - Rectal Rectal exam: Present: deferred - Extremities Exam Extremities exam: Present: normal inspection - Back Exam Back exam: Present: normal inspection - Neurological Exam Neurological exam: Present: alert, oriented X3 - Psychiatric Psychiatric exam: Present: normal affect, normal mood - Skin Skin exam: Present: warm, dry, intact, normal color. Absent: rash ED Course Vital Signs 03/31/21 01:23 Temperature 97 F L Pulse Rate 68 Respiratory 19 Rate Blood Pressure 99/56 O2 Sat by Pulse 96 Oximetry - Reevaluation(s) Reevaluation #1: I discussed all clinical findings with patient. I discussed plan of care with patient. Patient agrees with plan of care. Patient is stable for discharge. Patient will be discharged home. Patient given discharge instructions. Patient voiced understanding of discharge instructions. 03/31/21 01:57 ED Medical Decision Making - Medical Decision Making Patient is a 65-year-old male who presents emergency room with complaints of chronic generalized pain. Patient denies recent trauma. Patient denies chest pain shortness of breath. Patient had no other pertinent findings. Patient's vital signs were stable. Patient's has history of COPD and is oxygen was 96% on room air. Patient's symptoms are chronic. Patient also stated that he needed a place to stay. Patient not require further emergency medical services. Patient does not require inpatient services should patient stable for discharge. Patient discharged home. - Differential Diagnosis Generalized pain, chronic pain Critical care attestation.: If time is entered above; I have spent that time in minutes in the direct care of this critically ill patient, excluding procedure time. ED Disposition Clinical Impression: Chronic pain Qualifiers: Chronic pain type: other chronic pain Qualified Code(s): G89.29 - Other chronic pain Disposition: DC- TO HOME OR SELFCARE Is pt being admited?: No Does the pt Need Aspirin: No Condition: Stable Instructions: Chronic Pain, Adult Additional Instructions: Patient to follow-up with primary care in 2 to 3 days. Patient to follow-up with orthopedist in 2 to 3 days. Patient to rest. Patient to increase water. Patient to avoid strenuous exercise or heavy lifting until cleared by primary care and orthopedist.. Patient to take Tylenol or ibuprofen as needed for pain. Patient to continue all home medications. Patient to return to the ER if condition worsens, changes or new symptoms arise. Referrals: NERISSA SHI MD [Staff Physician] - 2-3 Days HARRISON MORALES MD [Staff Physician] - 2-3 Days Time of Disposition: 02:00
== END 2021-03-31 02:30 | disposition home or self-care (01) ==
LOC: ED 01:12

== ENCOUNTER 2022-02-12 02:18 | Emergency (ER) | payer SELFPAY ==
[2022-02-12] MEDS: ASPIRIN 325 MG TAB PO ONE (03:30)
[2022-02-12 03:57] LABS: Basophils # (Auto) 0.1 K/mm3 (0.0-0.1); Basophils % (Auto) 0.8 % (0.0-1.8); Eosinophils # (Auto) 0.1 K/mm3 (0.0-0.4); Eosinophils % (Auto) 1.1 % (0.0-4.3); Hematocrit 40.2 % (35.5-45.6); Hemoglobin 13.5 gm/dl (11.8-15.2); Lymphocytes # (Auto) 1.7 K/mm3 (1.2-5.4); Lymphocytes % (Auto) 24.5 % (13.4-35.0); Mean Corpuscular HGB Conc 34 % (32-34); Mean Corpuscular Volume 88 fl (84-94); Monocytes # (Auto) 0.8 K/mm3 (0.0-0.8); Monocytes % (Auto) 11.4 % (0.0-7.3); Platelet Count 219 K/mm3 (140-440); Red Blood Count 4.55 M/mm3 (3.65-5.03); Red Cell Distribution Width 13.9 % (13.2-15.2)
--- NOTE | 2022-02-12 04:13 | XRay Report ---
CHEST 2 VIEWS INDICATION / CLINICAL INFORMATION: chestpain STUDY TIME: 356 COMPARISON: 12/15/2019, 10/27/2019 FINDINGS: SUPPORT DEVICES: None. HEART / MEDIASTINUM: No significant abnormality. LUNGS / PLEURA: Left lung field is clear. A band of density is seen in the right middle lobe which ma y just be atelectatic but developing pneumonitis is not excluded and clinical correlation is suggeste d. No pleural effusions are seen. No pneumothorax. ADDITIONAL FINDINGS: No significant additional findings. Signer Name: Beau Gomes MD Signed: 02/12/2022 4:08 AM Workstation Name: [id number]
[2022-02-12 04:17] LABS: Alanine Aminotransferase 18 units/L (7-56); BUN/Creatinine Ratio 30; Blood Urea Nitrogen 24 mg/dL (9-20); Calcium 9.1 mg/dL (8.4-10.2); Hemolysis Index 2
[2022-02-12] MEDS: ACETAMINOPHEN 325 MG TAB PO ONE (04:38)
[2022-02-12] MEDS: KETOROLAC 30 MG/1 ML INJ IV ONE (04:39)
--- NOTE | 2022-02-12 04:49 | Emergency Department Report ---
ED Chest Pain HPI - General Chief Complaint: Chest Pain Stated Complaint: COUGH FOR 2WEEKS/CHEST PAIN Time Seen by Provider: 02/12/22 03:35 Source: patient Mode of arrival: Stretcher Limitations: No Limitations - History of Present Illness Initial Comments: 66-year-old male with a past medical history of asthma, COPD, hypertension, seizures, and hepatitis B. as per triage patient has had a cough with chest pain for 2 weeks. He tells me that his chest pain has been going on since this morning. It is described as left mid chest pain that is sharp, constant, worse with movement, breathing, and coughing. Patient complains of a dry cough without nausea, vomiting, fever, calf tenderness, or leg edema. Patient continues to smoke cigarettes. He is not compliant with hypertensive medication. He also admits to taking unknown pill yesterday that was provided to him by someone on the street for pain. As per medical record patient has history of drug abuse. Patient also complains of a chronic frontal intermittent headache and requesting pain medication Severity scale (0 -10): 5 - Related Data Previous Rx's Medication Instructions Recorded Last Taken Type Albuterol Sulfate [Proventil Hfa] 2 puff IH Q4HR PRN #1 hfa.aer.ad 02/12/22 Unknown Rx Azithromycin [Zithromax Z-AMADA] 1 dose PO DAILY 5 Days tab 02/12/22 Unknown Rx Ibuprofen [Motrin] 800 mg PO Q8HR PRN #20 tablet 02/12/22 Unknown Rx Prednisone [predniSONE 10 mg 10 mg PO .TAPER #1 02/12/22 Unknown Rx (6-Day Pack, 21 Tabs)] Allergies Allergy/AdvReac Type Severity Reaction Status Date / Time Penicillins Allergy Anaphylaxis Verified 09/28/19 20:20 Heart Score - HEART Score History: Slightly suspicious EKG: Normal Age: 45-65 Risk factors: 1-2 risk factors Troponin: < normal limit HEART Score: 2 - EKG Read Time Time EKG Completed: 03:31 EKG Read Time: 03:36 ED Review of Systems ROS: Stated complaint: COUGH FOR 2WEEKS/CHEST PAIN Other details as noted in HPI Comment: All other systems reviewed and negative ED Past Medical Hx - Past Medical History Previous Medical History?: Yes Hx Hypertension: Yes Hx CVA: No Hx Heart Attack/AMI: No Hx Congestive Heart Failure: No Hx Diabetes: No Hx Deep Vein Thrombosis: No Hx Pulmonary Embolism: No Hx GERD: No Hx Liver Disease: No Hx Renal Disease: No Hx Sickle Cell Disease: No Hx Arthritis: No Hx Headaches / Migraines: No Hx Seizures: Yes Hx Kidney Stones: No Hx Psychiatric Treatment: Yes (states "I can't remember" to most questions) Hx Asthma: Yes Hx COPD: Yes Hx Tuberculosis: No Hx Dementia: No Hx HIV: No Additional medical history: Hep B, Bronchitis and chronic back pain - Surgical History Past Surgical History?: No Hx Coronary Stent: No Hx Open Heart Surgery: No Hx Pacemaker: No Hx Internal Defibrillator: No Hx Cholecystectomy: No Hx Appendectomy: No Hx Breast Surgery: No - Social History Smoking Status: Current Every Day Smoker Substance Use Type: None - Medications Home Medications: Home Medications Medication Instructions Recorded Confirmed Last Taken Type Albuterol Sulfate [Proventil Hfa] 2 puff IH Q4HR PRN #1 hfa.aer.ad 02/12/22 Unknown Rx Azithromycin [Zithromax Z-AMADA] 1 dose PO DAILY 5 Days tab 02/12/22 Unknown Rx Ibuprofen [Motrin] 800 mg PO Q8HR PRN #20 tablet 02/12/22 Unknown Rx Prednisone [predniSONE 10 mg 10 mg PO .TAPER #1 02/12/22 Unknown Rx (6-Day Pack, 21 Tabs)] ED Physical Exam - General Limitations: No Limitations - Other Other exam information: General: No acute distress Head: Atraumatic Eyes: normal appearance ENT: Moist mucous membranes Neck: Normal appearance, no midline tenderness Chest: Reproducible anterior left or right chest wall tenderness to palpation, clear to auscultation bilaterally with coughing noted with deep inspiration CV: Regular rate and rhythm Abdomen: Soft, normal bowel sounds, nontender, nondistended, no rebound or guarding Back: Normal inspection Extremity: Normal inspection, full range of motion, no calf tenderness or leg edema Neuro: Alert O x 3, no facial asymmetry, speech clear, no gross motor sensory deficit Psych: Appropriate behavior Skin: No rash ED Course Vital Signs 02/12/22 03:19 Temperature 98 F Pulse Rate 80 Respiratory 18 Rate Blood Pressure 168/108 O2 Sat by Pulse 98 Oximetry - Reevaluation(s) Reevaluation #1: 02/12/22 05:29 BP 138/82 Which is improved compared to triage blood pressure. No blood pressure medications provided. Improved spontaneously. ELIA score - Elia Score Age > 65: (0) No Aspirin use within the Past 7 Days: (0) No 3 or more CAD Risk Factors: (0) No 2 or more Angina events in past 24 hrs: (0) No Known CAD with more than 50% Stenosis: (0) No Elevated Cardiac Markers: (0) No ST Deviation Greater than 0.5mm: (0) No ELIA Score: 0 ED Medical Decision Making - Lab Data Result diagrams: 02/12/22 03:40 02/12/22 03:40 Lab Results 02/12/22 02/12/22 02/12/22 Range/Units 03:40 03:40 04:00 WBC 6.9 (4.5-11.0) K/mm3 RBC 4.55 (3.65-5.03) M/mm3 Hgb 13.5 (11.8-15.2) gm/dl Hct 40.2 (35.5-45.6) % MCV 88 (84-94) fl MCH 30 (28-32) pg MCHC 34 (32-34) % RDW 13.9 (13.2-15.2) % Plt Count 219 (140-440) K/mm3 Lymph % (Auto) 24.5 (13.4-35.0) % [place] % (Auto) 11.4 H (0.0-7.3) % Eos % (Auto) 1.1 (0.0-4.3) % Baso % (Auto) 0.8 (0.0-1.8) % Lymph # (Auto) 1.7 (1.2-5.4) K/mm3 [place] # (Auto) 0.8 (0.0-0.8) K/mm3 Eos # (Auto) 0.1 (0.0-0.4) K/mm3 Baso # (Auto) 0.1 (0.0-0.1) K/mm3 Seg Neutrophils % 62.2 (40.0-70.0) % Seg Neutrophils # 4.3 (1.8-7.7) K/mm3 Sodium 139 (137-145) mmol/L Potassium 3.4 L (3.6-5.0) mmol/L Chloride 103.2 (98-107) mmol/L Carbon Dioxide 24 (22-30) mmol/L Anion Gap 15 mmol/L BUN 24 H (9-20) mg/dL Creatinine 0.8 (0.8-1.3) mg/dL Estimated GFR > 60 ml/min BUN/Creatinine Ratio 30 % Glucose 97 (75-100) mg/dL Calcium 9.1 (8.4-10.2) mg/dL Total Bilirubin 0.50 (0.1-1.2) mg/dL AST 18 (5-40) units/L ALT 18 (7-56) units/L Alkaline Phosphatase 66 (35-129) units/L Troponin T < 0.010 (0.00-0.029) ng/mL Total Protein 6.8 (6.3-8.2) g/dL Albumin 4.0 (3.9-5) g/dL Albumin/Globulin Ratio 1.4 % Plasma/Serum Alcohol < 0.01 (0-0.07) % - EKG Data -: EKG Interpreted by Ca EKG shows normal: sinus rhythm, ST-T waves (NO STEMI) Rate: normal - Radiology Data Radiology results: report reviewed CHEST 2 VIEWS INDICATION / CLINICAL INFORMATION: chestpain STUDY TIME: 356 COMPARISON: 12/15/2019, 10/27/2019 FINDINGS: SUPPORT DEVICES: None. HEART / MEDIASTINUM: No significant abnormality. LUNGS / PLEURA: Left lung field is clear. A band of density is seen in the right middle lobe which may just be atelectatic but developing pneumonitis is not excluded and clinical correlation is suggested. No pleural effusions are seen. No pneumothorax. ADDITIONAL FINDINGS: No significant additional findings. - Medical Decision Making 66-year-old male presents to the hospital complaining of sharp chest pain with movement, palpation, deep inspiration to anterior left chest. On examination patient has tenderness to bilateral chest wall and has coughing with deep inspiration. Patient has history of COPD and continues to smoke cigarettes. Also history of substance abuse with possible recent unknown illicit drug use. Chest x-ray findings noted. At the ED work-up included EKG fairly unremarkable with negative troponin and heart score of 2. Patient will be discharged with outpatient follow-up, antibiotics for bronchitis (due to possibility of pneumonitis on chest x-ray), steroids, albuterol, and Motrin. P.o. potassium ordered in the ED for mild hypokalemia Critical Care Time: No Critical care attestation.: If time is entered above; I have spent that time in minutes in the direct care of this critically ill patient, excluding procedure time. ED Disposition Clinical Impression: Acute bronchitis, Chest wall pain Disposition: HOME / SELF CARE / HOMELESS Is pt being admited?: No Condition: Stable Instructions: Nonspecific Chest Pain, Adult, Nonspecific Chest Pain, Adult, [id number], Acute Bronchitis, Adult, Acute Bronchitis (ED) Additional Instructions: Take the medication as prescribed. Follow-up with your doctor or doctor/clinic provided. Return if symptoms worsen as indicated by your discharge instructions. Prescriptions: Ibuprofen [Motrin] 800 mg PO Q8HR PRN #20 tablet PRN Reason: Pain , Severe (7-10) Prednisone [predniSONE 10 mg (6-Day Pack, 21 Tabs)] 10 mg PO .TAPER #1 Albuterol Sulfate [Proventil Hfa] 2 puff IH Q4HR PRN #1 hfa.aer.ad PRN Reason: Wheezing Azithromycin [Zithromax Z-AMADA] 1 dose PO DAILY 5 Days tab Referrals: [facility] [Provider Group] - 3-5 Days KARINE RAMOS MD [Staff Physician] - 3-5 Days Time of Disposition: 05:36
[2022-02-12 06:13] VITALS: BP 138/82
[2022-02-12] MEDS: POTASSIUM CHLORIDE ER 20 MEQ TAB PO ONE (06:41)
--- NOTE | 2022-02-14 11:58 | Electrocardiograph Report ---
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
== END 2022-02-12 06:48 | disposition home or self-care (01) ==
LOC: ED 02:18
DX: J20.9 Acute bronchitis, unspecified (principal); R07.89 Other chest pain; I10 Essential (primary) hypertension; R56.9 Unspecified convulsions; J45.909 Unspecified asthma, uncomplicated; Z13.30 Encounter for screening examination for mental health and behavioral disorders, unspecified; Z98.890 Other specified postprocedural states; Z79.899 Other long term (current) drug therapy; Z88.0 Allergy status to penicillin; F17.200 Nicotine dependence, unspecified, uncomplicated
CPT/HCPCS: 36415; 71046; 80053; 84484; 85025; 93005; 96374; 99284; J1885; 80320; G0480

== ENCOUNTER 2022-02-27 16:25 | Emergency (ER) | payer SELFPAY ==
[2022-02-27 17:50] LABS: BUN/Creatinine Ratio 13; Blood Urea Nitrogen 12 mg/dL (9-20); Calcium 9.1 mg/dL (8.4-10.2); Hemolysis Index 3
[2022-02-27 18:12] LABS: Basophils # (Auto) 0.1 K/mm3 (0.0-0.1); Basophils % (Auto) 0.9 % (0.0-1.8); Eosinophils # (Auto) 0.1 K/mm3 (0.0-0.4); Hemoglobin 14.4 gm/dl (11.8-15.2); Lymphocytes # (Auto) 2.1 K/mm3 (1.2-5.4); Lymphocytes % (Auto) 23.2 % (13.4-35.0); Mean Corpuscular HGB Conc 34 % (32-34); Mean Corpuscular Volume 88 fl (84-94); Monocytes # (Auto) 0.8 K/mm3 (0.0-0.8); Monocytes % (Auto) 8.5 % (0.0-7.3); Platelet Count 317 K/mm3 (140-440); Red Blood Count 4.78 M/mm3 (3.65-5.03); Red Cell Distribution Width 13.7 % (13.2-15.2)
[2022-02-27] MEDS ORDERED: ACETAMINOPHEN 325 MG TAB PO ONE (23:18)
--- NOTE | 2022-02-28 03:12 | Emergency Department Report ---
ED Psych HPI - General Chief Complaint: Psych Stated Complaint: MENTAL HEALTH, DETOX Time Seen by Provider: 02/28/22 01:58 Source: patient Mode of arrival: Ambulatory - History of Present Illness Initial Comments: 67-year-old with a history of anxiety and depression who now presents with paranoid feelings for the last 2 to 3 days progressively worsening. Patient reported that she felt like somebody was going to kill him in this area. When asked specifically if he knows anybody the answer was no. Patient denies any suicidal or homicidal ideation. No other modifying or associated factors reported. - Related Data Previous Rx's Medication Instructions Recorded Last Taken Type Albuterol Sulfate [Proventil Hfa] 2 puff IH Q4HR PRN #1 hfa.aer.ad 02/12/22 Unknown Rx Azithromycin [Zithromax Z-AMADA] 1 dose PO DAILY 5 Days tab 02/12/22 Unknown Rx Ibuprofen [Motrin] 800 mg PO Q8HR PRN #20 tablet 02/12/22 Unknown Rx Prednisone [predniSONE 10 mg 10 mg PO .TAPER #1 02/12/22 Unknown Rx (6-Day Pack, 21 Tabs)] Allergies Allergy/AdvReac Type Severity Reaction Status Date / Time Penicillins Allergy Anaphylaxis Verified 09/28/19 20:20 ED Review of Systems ROS: Stated complaint: MENTAL HEALTH, DETOX Other details as noted in HPI Comment: All other systems reviewed and negative Psychiatric: anxiety, depression, other (Paranoid feeling) ED Past Medical Hx - Past Medical History Hx Hypertension: Yes Hx CVA: No Hx Heart Attack/AMI: No Hx Congestive Heart Failure: No Hx Diabetes: No Hx Deep Vein Thrombosis: No Hx Pulmonary Embolism: No Hx GERD: No Hx Liver Disease: No Hx Renal Disease: No Hx Sickle Cell Disease: No Hx Arthritis: No Hx Headaches / Migraines: No Hx Seizures: Yes Hx Kidney Stones: No Hx Psychiatric Treatment: Yes (states "I can't remember" to most questions) Hx Asthma: Yes Hx COPD: Yes Hx Tuberculosis: No Hx Dementia: No Hx HIV: No Additional medical history: Hep B, Bronchitis and chronic back pain - Surgical History Hx Coronary Stent: No Hx Open Heart Surgery: No Hx Pacemaker: No Hx Internal Defibrillator: No Hx Cholecystectomy: No Hx Appendectomy: No Hx Breast Surgery: No - Social History Smoking Status: Current Every Day Smoker Substance Use Type: None - Medications Home Medications: Home Medications Medication Instructions Recorded Confirmed Last Taken Type Albuterol Sulfate [Proventil Hfa] 2 puff IH Q4HR PRN #1 hfa.aer.ad 02/12/22 Unknown Rx Azithromycin [Zithromax Z-AMADA] 1 dose PO DAILY 5 Days tab 02/12/22 Unknown Rx Ibuprofen [Motrin] 800 mg PO Q8HR PRN #20 tablet 02/12/22 Unknown Rx Prednisone [predniSONE 10 mg 10 mg PO .TAPER #1 02/12/22 Unknown Rx (6-Day Pack, 21 Tabs)] ED Physical Exam - General Limitations: No Limitations General appearance: alert, in no apparent distress, cachectic - Head Head exam: Present: atraumatic, normal inspection - Eye Eye exam: Present: normal appearance Pupils: Present: normal accommodation - ENT ENT exam: Present: normal exam, normal orophraynx, mucous membranes dry - Neck Neck exam: Present: normal inspection, full ROM. Absent: tenderness - Respiratory Respiratory exam: Present: normal lung sounds bilaterally. Absent: respiratory distress, accessory muscle use - Cardiovascular Cardiovascular Exam: Present: regular rate, normal rhythm, normal heart sounds - GI/Abdominal GI/Abdominal exam: Present: soft, normal bowel sounds. Absent: distended, tenderness - Extremities Exam Extremities exam: Present: normal inspection, normal capillary refill. Absent: tenderness - Back Exam Back exam: Absent: tenderness - Neurological Exam Neurological exam: Present: alert, oriented X3 - Psychiatric Psychiatric exam: Present: normal affect, normal mood - Skin Skin exam: Present: warm, normal color ED Course Vital Signs 02/27/22 16:54 Temperature 97.7 F Pulse Rate 78 Respiratory 16 Rate Blood Pressure 151/101 [Left] O2 Sat by Pulse 99 Oximetry - Reevaluation(s) Reevaluation #1: 02/28/22 03:11 With anxiety and depression, reports paranoid feeling--unsure if this patient have history of schizophrenia--we will go ahead and order routine psych work-up and have patient consulted by mental health for further evaluation and treatment ED Medical Decision Making - Lab Data Result diagrams: 02/27/22 17:10 02/27/22 17:10 Critical care attestation.: If time is entered above; I have spent that time in minutes in the direct care of this critically ill patient, excluding procedure time. ED Disposition Clinical Impression: Paranoid ideation Disposition: 30 STILL A PATIENT Does the pt Need Aspirin: No Condition: Stable
[2022-02-28 03:51] LABS: Alanine Aminotransferase 18 units/L (7-56); Albumin 4.2 g/dL (3.9-5); Bilirubin,Direct < 0.2 mg/dL (0-0.2)
--- NOTE | 2022-02-28 12:45 | Consultation ---
History of Present Illness - Reason for Consult Consult date: 02/28/22 Reason for consult: paranoia - History of Present Psychiatric Illness HPI: 67-year-old with a history of anxiety and depression who now presents with paranoid feelings for the last 2 to 3 days progressively worsening. Patient reported that she felt like somebody was going to kill him in this area. When asked specifically if he knows anybody the answer was no. Patient denies any ordoñez icidal or homicidal ideation. No other modifying or associated factors reported. The patient was seen today. He is disheveled. He is a/o x 1 with poor memory. He says someone keeps messing with him where he is living. He says "somebody is trying to kill me and keep following me everywhere I go." The patient verbalizes cocaine use. He says he is depressed. He says he lives in [place] and doesn't want to go back. He says someone "keeps is doing things to me at night." He could not remember an of his meds. The patient states he feels suicidal "sometimes, comes and goes." He denies having a plan. He denies hallucinations. Will start medications and recommend inpatient treatment for psychosis and SI. Will also consult case management for possible placement. PAST PSYCHIATRIC HISTORY: Diagnoses: Paranoid schizophrenia Suicide attempts or Self-harm behavior denies Prior psychiatric hospitalizations denies Substance Abuse history: Cocaine Previous psychiatric medications tried: Could not recall Outpatient treatment: Yes PAST MEDICAL HISTORY: Family Psychiatric History None reported or documented SOCIAL HISTORY Marital Status: Single Living Arrangements: Lives josafat Employment Status: Unemployed Access to guns/weapons: Denies Education: [employer] History of Abuse: Denies Legal History: Denied ROS: Constitutional: Negative for weight loss ENT: Negative for stridor Respiratory: Negative for cough or hemoptysis All other systems reviewed and are negative MENTAL STATUS General Appearance and Behavior: age appropriate, limited eye contact, cooperative with questioning and polite Cooperation: Cooperative Psychomotor Behavior: within normal limits Mood: Depressed Affect and affective range: Congruent with stated mood Thought Process: Circumstantial Thought Content: paranoia Speech: Normal volume and Regular rate and rhythm Suicidal Ideation: "sometimes, comes and goes" Homicidal Ideation: Denies HI Impulse Control: intact Insight and Judgment: fair Memory: Poor Attention: distracted Orientation: alert and orientedx1 RECOMMENDATIONS 1013 Abilify 5mg po daily Prozac 10mg po daily Risks, benefits and alternatives of medications discussed with the patient, questions answered and consent obtained from patient. PSYCHOTHERAPY: Supportive psychotherapy provided MEDICAL: Per primary team DELIRIUM PRECAUTIONS: Please re-orient patient frequently, keep lights on during the day, and minimize benzodiazepines and opiates as these medications could worsen patient's confusion. BEREAVEMENT COORDINATOR: Per medical DISPOSITION: indication for acute inpatient psychiatric hospitalization at this time FOLLOW-UP: Will follow Medications and Allergies Allergies Allergy/AdvReac Type Severity Reaction Status Date / Time Penicillins Allergy Anaphylaxis Verified 09/28/19 20:20 Home Medications Medication Instructions Recorded Confirmed Last Taken Type Albuterol Sulfate [Proventil Hfa] 2 puff IH Q4HR PRN #1 hfa.aer.ad 02/12/22 Unknown Rx Azithromycin [Zithromax Z-AMADA] 1 dose PO DAILY 5 Days tab 02/12/22 Unknown Rx Ibuprofen [Motrin] 800 mg PO Q8HR PRN #20 tablet 02/12/22 Unknown Rx Prednisone [predniSONE 10 mg 10 mg PO .TAPER #1 02/12/22 Unknown Rx (6-Day Pack, 21 Tabs)] Mental Status Exam - Vital signs Last Vital Signs Temp 97.2 F L 02/28/22 09:57 Pulse 68 02/28/22 09:57 Resp 18 02/28/22 09:57 BP 150/99 02/28/22 09:57 Pulse Ox 95 02/28/22 09:57 Results Result Diagrams: 02/27/22 17:10 02/27/22 17:10 Abnormal lab results 02/27/22 02/27/22 02/27/22 Range/Units 17:10 17:10 17:10 [place] % (Auto) (0.0-7.3) % Potassium 3.1 L (3.6-5.0) mmol/L Chloride 96.4 L (98-107) mmol/L Carbon Dioxide 32 H (22-30) mmol/L Salicylates < 0.3 L (2.8-20.0) mg/dL Acetaminophen 5.0 L (10.0-30.0) ug/mL 02/27/22 Range/Units 17:10 [place] % (Auto) 8.5 H (0.0-7.3) % Potassium (3.6-5.0) mmol/L Chloride (98-107) mmol/L Carbon Dioxide (22-30) mmol/L Salicylates (2.8-20.0) mg/dL Acetaminophen (10.0-30.0) ug/mL All other labs normal.
[2022-02-28] MEDS: FLUoxetine 10 MG TAB PO SCH (14:00)
[2022-02-28] MEDS: ARIPiprazole 5 MG TAB PO SCH (14:25)
--- NOTE | 2022-03-01 10:09 | Progress Note ---
Subjective - Reason for Consult Consult date: 03/01/22 Reason for consult: paranoia - Chief Complaint Chief complaint: The patient was seen today. He says he feels like someone is out to get him. He says "I don't feel good. People are trying to hurt me and I don't know why." The patient denies hallucinations. I ask the patient what people, he states "people in the house I was living." He denies SI/HI. ROS: Constitutional: Negative for weight loss ENT: Negative for stridor Respiratory: Negative for cough or hemoptysis All other systems reviewed and are negative MENTAL STATUS General Appearance and Behavior: age appropriate, limited eye contact, cooperative with questioning and polite Cooperation: Cooperative Psychomotor Behavior: within normal limits Mood: Depressed Affect and affective range: Congruent with stated mood Thought Process: Circumstantial Thought Content: paranoia Speech: Normal volume and Regular rate and rhythm Suicidal Ideation: "sometimes, comes and goes" Homicidal Ideation: Denies HI Impulse Control: intact Insight and Judgment: fair Memory: Poor Attention: distracted Orientation: alert and orientedx1 RECOMMENDATIONS 1013 Abilify 5mg po daily Prozac 10mg po daily Risks, benefits and alternatives of medications discussed with the patient, questions answered and consent obtained from patient. PSYCHOTHERAPY: Supportive psychotherapy provided MEDICAL: Per primary team DELIRIUM PRECAUTIONS: Please re-orient patient frequently, keep lights on during the day, and minimize benzodiazepines and opiates as these medications could worsen patient's confusion. 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
[2022-03-01] MEDS: FLUoxetine 10 MG TAB PO SCH ×2 (17:00→17:09)
[2022-03-01] MEDS: ARIPiprazole 5 MG TAB PO SCH (18:43)
[2022-03-01 20:33] VITALS: BP 122/97
[2022-03-02 05:01] LABS: Benzodiazepines Screen,Urine Negative; Cannabinoid Screen,Urine Negative; Cocaine Screen,Urine Negative; Methadone Screen,Urine Negative; Opiate Screen,Urine Negative
[2022-03-02 05:03] LABS: Bilirubin,Urine NEG (Negative); Color,Urine Straw (Yellow)
[2022-03-02 05:04] LABS: Blood,Urine NEG (Negative); Protein,Urine <15 mg/dL mg/dL (Negative); Urobilinogen,Urine < 2.0 mg/dL (<2.0)
[2022-03-02 05:40] LABS: Amphetamine Screen,Urine Positive
[2022-03-02] MEDS ORDERED: ARIPiprazole 10 MG TAB PO SCH (10:00)
--- NOTE | 2022-03-02 11:15 | Progress Note ---
Subjective - Reason for Consult Consult date: 03/02/22 Reason for consult: mental health evaluation - Chief Complaint Chief complaint: The patient was seen today. The patient is calm, alert and oriented x2. The patient continues to present with some confusion but denies any current suicidal/homicidal ideation and denies hallucinations. ROS: Constitutional: Negative for weight loss ENT: Negative for stridor Respiratory: Negative for cough or hemoptysis All other systems reviewed and are negative MENTAL STATUS General Appearance and Behavior: age appropriate, limited eye contact, cooperative with questioning and polite Cooperation: Cooperative Psychomotor Behavior: within normal limits Mood: OK Affect and affective range: Congruent with stated mood Thought Process: Circumstantial Thought Content: paranoia Speech:Normal volume and Regular rate and rhythm Suicidal Ideation: Denies Homicidal Ideation: Denies HI Impulse Control: intact Insight and Judgment: fair Memory: Poor Attention: distracted Orientation: alert and orientedx2 RECOMMENDATIONS Dc 1013 Continue Abilify 5mg po daily Continue Prozac 10mg po daily Risks, benefits and alternatives of medications discussed with the patient, questions answered and consent obtained from patient. PSYCHOTHERAPY: Supportive psychotherapy provided MEDICAL: Per primary team DELIRIUM PRECAUTIONS: Please re-orient patient frequently, keep lights on during the day, and minimize benzodiazepines and opiates as these medications could worsen patient's confusion. LOSS PREVENTION ASSOCIATE: Per medical DISPOSITION: indication for acute inpatient psychiatric hospitalization at this time FOLLOW-UP: Will follow Mental Status Exam - Vital signs Last Vital Signs Temp 98.4 F 03/01/22 20:33 Pulse 71 03/01/22 20:33 Resp 16 03/01/22 20:33 BP 122/97 03/01/22 20:33 Pulse Ox 94 03/01/22 20:33
== END 2022-03-02 13:47 | disposition still patient (30) ==
LOC: EDBD → ED 16:25 → EEVIPCON 16:25 → ED 03-02 13:47
DX: F60.0 Paranoid personality disorder (principal); Z88.0 Allergy status to penicillin; F17.200 Nicotine dependence, unspecified, uncomplicated; I10 Essential (primary) hypertension; Z20.822 Contact with and (suspected) exposure to COVID-19; Z79.899 Other long term (current) drug therapy
CPT/HCPCS: 36415; 80048; 80076; 80307; 81001; 84132; 85025; 99284; U0003; 80320; G0480

== ENCOUNTER 2022-03-02 16:10 | Emergency (ER) | payer SELFPAY ==
--- NOTE | 2022-03-02 22:40 | Emergency Department Report ---
ED General Adult HPI - General Chief complaint: Medical Clearance Stated complaint: I need help Time Seen by Provider: 03/02/22 22:34 Source: patient, RN notes reviewed, old records reviewed Mode of arrival: Ambulatory Limitations: No Limitations - History of Present Illness Initial comments: The patient was evaluated in the emergency department for symptoms described in the history of present illness. He/she was evaluated in the context of the global COVID-19 pandemic, which necessitated consideration that the patient might be at risk for infection with the virus that causes COVID-19. Institutional protocols and algorithms that pertain to the evaluation of patients at risk for COVID-19 are in a state of rapid change based on information released by regulatory bodies including the CDC and federal and state organizations. These policies and algorithms were followed during the patient's care in the emergency department. Please note that these policies, procedures and recommendations changed on a rapid basis. This patient is a 67-year-old gentleman who presents to the emergency room today with a complaint of "I need help for drugs and alcohol." He endorses chronic physical lower back pain. He denies homicidality, suicidality, hallucinations and overdose. He was medically cleared by my colleague recently. He was deemed suitable for discharge by the psychiatric team earlier on today and discharged. The patient reports that he is is not interested in outpatient resources and wants to be admitted Consistency: constant Improves with: none Worsens with: none - Related Data Previous Rx's Medication Instructions Recorded Last Taken Type Albuterol Sulfate [Proventil Hfa] 2 puff IH Q4HR PRN #1 hfa.aer.ad 02/12/22 Unknown Rx Azithromycin [Zithromax Z-AMADA] 1 dose PO DAILY 5 Days tab 02/12/22 Unknown Rx Ibuprofen [Motrin] 800 mg PO Q8HR PRN #20 tablet 02/12/22 Unknown Rx Prednisone [predniSONE 10 mg 10 mg PO .TAPER #1 02/12/22 Unknown Rx (6-Day Pack, 21 Tabs)] ARIPiprazole [Abilify TAB] 5 mg PO DAILY 30 Days #30 03/02/22 Unknown Rx FLUoxetine HCL [Prozac] 10 mg PO DAILY #30 cap 03/02/22 Unknown Rx Allergies Allergy/AdvReac Type Severity Reaction Status Date / Time Penicillins Allergy Anaphylaxis Verified 09/28/19 20:20 ED Review of Systems ROS: Stated complaint: DRUGS AND ALCOHOL Other details as noted in HPI Constitutional: denies: fever Respiratory: denies: cough Cardiovascular: denies: chest pain Gastrointestinal: denies: abdominal pain Genitourinary: denies: dysuria Musculoskeletal: back pain Psychiatric: denies: auditory hallucinations, visual hallucinations, homicidal thoughts, suicidal thoughts ED Past Medical Hx - Past Medical History Hx Hypertension: Yes Hx CVA: No Hx Heart Attack/AMI: No Hx Congestive Heart Failure: No Hx Diabetes: No Hx Deep Vein Thrombosis: No Hx Pulmonary Embolism: No Hx GERD: No Hx Liver Disease: No Hx Renal Disease: No Hx Sickle Cell Disease: No Hx Arthritis: No Hx Headaches / Migraines: No Hx Seizures: Yes Hx Kidney Stones: No Hx Psychiatric Treatment: Yes (states "I can't remember" to most questions) Hx Asthma: Yes Hx COPD: Yes Hx Tuberculosis: No Hx Dementia: No Hx HIV: No Additional medical history: Hep B, Bronchitis and chronic back pain - Surgical History Hx Coronary Stent: No Hx Open Heart Surgery: No Hx Pacemaker: No Hx Internal Defibrillator: No Hx Cholecystectomy: No Hx Appendectomy: No Hx Breast Surgery: No - Social History Smoking Status: Current Every Day Smoker Substance Use Type: None - Medications Home Medications: Home Medications Medication Instructions Recorded Confirmed Last Taken Type Albuterol Sulfate [Proventil Hfa] 2 puff IH Q4HR PRN #1 hfa.aer.ad 02/12/22 Unknown Rx Azithromycin [Zithromax Z-AMADA] 1 dose PO DAILY 5 Days tab 02/12/22 Unknown Rx Ibuprofen [Motrin] 800 mg PO Q8HR PRN #20 tablet 02/12/22 Unknown Rx Prednisone [predniSONE 10 mg 10 mg PO .TAPER #1 02/12/22 Unknown Rx (6-Day Pack, 21 Tabs)] ARIPiprazole [Abilify TAB] 5 mg PO DAILY 30 Days #30 03/02/22 Unknown Rx FLUoxetine HCL [Prozac] 10 mg PO DAILY #30 cap 03/02/22 Unknown Rx ED Physical Exam - General Limitations: No Limitations General appearance: alert, in no apparent distress - Head Head exam: Present: atraumatic, normocephalic - Eye Eye exam: Present: normal appearance, EOMI. Absent: nystagmus - ENT ENT exam: Present: normal exam, normal orophraynx, mucous membranes moist, normal external ear exam - Neck Neck exam: Present: normal inspection, full ROM. Absent: tenderness, meningismus - Respiratory Respiratory exam: Present: normal lung sounds bilaterally. Absent: respiratory distress, wheezes, rales, rhonchi, stridor, decreased breath sounds - Cardiovascular Cardiovascular Exam: Present: regular rate, normal rhythm, normal heart sounds. Absent: bradycardia, tachycardia, irregular rhythm, systolic murmur, diastolic murmur, rubs, gallop - GI/Abdominal GI/Abdominal exam: Present: soft. Absent: distended, tenderness, guarding, rebound, rigid, pulsatile mass - Rectal Rectal exam: Present: deferred - Extremities Exam Extremities exam: Present: normal inspection, full ROM, other (2+ pulses noted in the bilateral upper extremities. There is no long bony tenderness. The muscular compartments are soft) - Back Exam Back exam: Present: normal inspection. Absent: tenderness, CVA tenderness (R), CVA tenderness (L), vertebral tenderness - Neurological Exam Neurological exam: Present: alert, oriented X3 (Patient is awake and alert to name, location and month), normal gait, other (There is no facial droop. The tongue is midline. EOMI. 5/5 strength in 4 extremities.). Absent: motor sensory deficit - Psychiatric Psychiatric exam: Absent: homicidal ideation, suicidal ideation - Skin Skin exam: Present: warm, dry, intact, normal color. Absent: rash ED Course Vital Signs 03/02/22 16:31 Temperature 98.2 F Pulse Rate 88 Respiratory 20 Rate Blood Pressure 159/120 O2 Sat by Pulse 97 Oximetry ED Medical Decision Making - Lab Data Vital Signs 03/02/22 16:31 Temperature 98.2 F Pulse Rate 88 Respiratory 20 Rate Blood Pressure 159/120 O2 Sat by Pulse 97 Oximetry Lab Results 03/02/22 Range/Units 18:12 Plasma/Serum Alcohol < 0.01 (0-0.07) % - Medical Decision Making Differential diagnosis, including not limited to: Malingering, secondary gain, encounter for behavioral health screening Assessment and plan: 67-year-old gentleman who was just medically cleared and also discharged by the psychiatric team earlier on today. He presents as awake and alert to name, location, month, and he is not homicidal or suicidal. He does not meet criteria for 1013 or involuntary confinement. He does not appear to have an emergent medical condition present at this time. Placing this patient on a 1013 hold or involuntary confinement will serve to reinforce maladaptive coping behaviors, such as presenting to the emergency room for food, and longterm when faced with challenging circumstances. Patient advised that he may present himself to an outpatient psychiatric facility if he so desires for evaluation, but he does not meet criteria for 1013 hold or involuntary confinement. He will be given outpatient resources. Critical care attestation.: If time is entered above; I have spent that time in minutes in the direct care of this critically ill patient, excluding procedure time. ED Disposition Clinical Impression: Encounter for behavioral health screening Disposition: HOME / SELF CARE / HOMELESS Is pt being admited?: No Does the pt Need Aspirin: No Condition: Good Instructions: Depression Screening Additional Instructions: Please follow-up with an outpatient mental health specialist within the next week. Avoid consumption of alcohol, tobacco, smoke products and recreational drugs. Please return to the emergency room right away with new pain, worsened pain, migration of pain, projectile vomiting, change in mental status, confusion, inability tolerate liquid feeds, new, worsened or different symptoms not present on the initial emergency room evaluation professional and Agency Contacts To help [facility] (15/04) [place] Crisis Line: Suicide Prevention Line: Crisis Text Line: Text ``START to 691907 Emergency: 911 Outpatient COMMUNITY Behavioral Health Resources: [facility]: [facility] [address] [place], [place] [address] [facility] [address] [place] [address] Saturday thru Saturday - 8am - 5pm Call to schedule an assessment for mental health and substance abuse programs [facility] Address: [address] [place] [address] Saturday thru Saturday- 7am-2pm [facility] Address: [address] [place] [address] Saturday thrsaturday: 8:30AM-5PM Referrals: [facility] [Outside] - 3-5 Days [facility] [Outside] - 3-5 Days
[2022-03-02 23:12] VITALS: BP 142/78
== END 2022-03-02 23:12 | disposition home or self-care (01) ==
LOC: ED 16:10
DX: Z13.30 Encounter for screening examination for mental health and behavioral disorders, unspecified (principal); I10 Essential (primary) hypertension; R56.9 Unspecified convulsions; J45.909 Unspecified asthma, uncomplicated; Z88.0 Allergy status to penicillin; Z79.899 Other long term (current) drug therapy; F17.200 Nicotine dependence, unspecified, uncomplicated
CPT/HCPCS: 36415; 80320; 99283; G0480

== ENCOUNTER 2022-03-12 20:49 | Emergency (ER) | payer SELFPAY ==
[2022-03-12 21:00] VITALS: BP 154/96
== END 2022-03-13 11:34 | disposition left against medical advice (07) ==
LOC: EDBD → ED 20:49
DX: M54.9 Dorsalgia, unspecified (principal); Z53.21 Procedure and treatment not carried out due to patient leaving prior to being seen by health care provider

== ENCOUNTER 2022-05-20 06:30 | Emergency (ER) | payer SELFPAY ==
[2022-05-20 06:40] VITALS: BP 175/110
[2022-05-20 09:21] LABS: Basophils # (Auto) 0.1 K/mm3 (0.0-0.1); Basophils % (Auto) 0.9 % (0.0-1.8); Eosinophils # (Auto) 0.1 K/mm3 (0.0-0.4); Hematocrit 41.2 % (35.5-45.6); Hemoglobin 14.5 gm/dl (11.8-15.2); Lymphocytes # (Auto) 1.3 K/mm3 (1.2-5.4); Lymphocytes % (Auto) 19.7 % (13.4-35.0); Mean Corpuscular HGB Conc 35 % (32-34); Mean Corpuscular Volume 89 fl (84-94); Monocytes # (Auto) 0.7 K/mm3 (0.0-0.8); Monocytes % (Auto) 10.7 % (0.0-7.3); Platelet Count 188 K/mm3 (140-440); Red Blood Count 4.65 M/mm3 (3.65-5.03); Red Cell Distribution Width 13.6 % (13.2-15.2)
[2022-05-20 10:45] LABS: Alanine Aminotransferase 17 units/L (7-56); Albumin 4.5 g/dL (3.9-5); BUN/Creatinine Ratio 21; Blood Urea Nitrogen 17 mg/dL (9-20); Calcium 9.4 mg/dL (8.4-10.2); Hemolysis Index 30
== END 2022-05-20 10:05 | disposition left against medical advice (07) ==
LOC: ED 06:30
DX: R10.9 Unspecified abdominal pain (principal); Z53.21 Procedure and treatment not carried out due to patient leaving prior to being seen by health care provider
CPT/HCPCS: 36415; 80053; 83690; 85025

== ENCOUNTER 2022-05-20 12:04 | Emergency (ER) | payer SELFPAY ==
--- NOTE | 2022-05-20 13:05 | Emergency Department Report ---
Blank Doc - Documentation Documentation: 66-year-old male that presents with n/v, abdominal pains, and headaches. Patient that is a chronic alcoholic drinker with last episode was 2 days ago. 1- This is a initial triage assessment/medical screening only. Full assessment and work-up will be completed once the patient is in proper hospital gown, ED bed and in a private room setting. This initial assessment/diagnostic orders/clinical plan/ treatment(s) is/are subject to change based on pt's health status, clinical progression and re-assessment by fellow clinical providers in the ED. Further treatment and workup at subsequent clinical providers discretion. Patient/guardians urged not to elope from ED as their condition may be serious if not clinically assessed and managed. 2-labs 3-EKG The patient was evaluated in the emergency department for symptoms described in the history of present illness. He/she was evaluated in the context of the global COVID-19 pandemic, which necessitated consideration that the patient might be at risk for infection with the virus that causes COVID-19. Institutional protocols and algorithms that pertain to the evaluation of patients at risk for COVID-19 are in a state of rapid change based on information released by regulatory bodies including the CDC and federal and state organizations. These policies and algorithms were followed during the patient's care in the emergency department. Please note that these policies, procedures and recommendations changed on a rapid basis.
[2022-05-20 13:07] VITALS: BP 135/82
[2022-05-20 13:51] LABS: Basophils # (Auto) 0.1 K/mm3 (0.0-0.1); Basophils % (Auto) 0.8 % (0.0-1.8); Eosinophils # (Auto) 0.1 K/mm3 (0.0-0.4); Eosinophils % (Auto) 1.6 % (0.0-4.3); Hematocrit 44.5 % (35.5-45.6); Lymphocytes # (Auto) 1.2 K/mm3 (1.2-5.4); Lymphocytes % (Auto) 19.2 % (13.4-35.0); Mean Corpuscular HGB Conc 34 % (32-34); Mean Corpuscular Volume 89 fl (84-94); Monocytes # (Auto) 0.6 K/mm3 (0.0-0.8); Monocytes % (Auto) 9.7 % (0.0-7.3); Platelet Count 222 K/mm3 (140-440); Red Blood Count 4.99 M/mm3 (3.65-5.03); Red Cell Distribution Width 13.6 % (13.2-15.2)
[2022-05-20 14:05] LABS: Alanine Aminotransferase 18 units/L (7-56); Albumin 4.8 g/dL (3.9-5); BUN/Creatinine Ratio 18; Blood Urea Nitrogen 16 mg/dL (9-20); Calcium 9.5 mg/dL (8.4-10.2); Hemolysis Index 32
== END 2022-05-20 14:10 | disposition left against medical advice (07) ==
LOC: ED 12:04
DX: R10.9 Unspecified abdominal pain (principal); Z53.21 Procedure and treatment not carried out due to patient leaving prior to being seen by health care provider
CPT/HCPCS: 36415; 80053; 80320; 83735; 84484; 85025; G0480